=== PATIENT | female | born 1950 | race Caucasian/White ===

== ENCOUNTER 2018-03-21 22:00 | Inpatient (IN) ==
--- NOTE | 2018-03-21 22:12 | Emergency Department Note ---
Disposition Clinical Impression: Hypotension Qualifiers: Hypotension type: unspecified hypotension type Qualified Code(s): I95.9 - Hypotension, unspecified Disposition: Admitted As Inpatient Condition: Fair Forms: ED Satisfaction Letter, Work/School Release Time of Disposition: 02:50 General Adult HPI - General Chief complaint: ED General Medical Stated complaint: unresponsive low BP Time Seen by Provider: 03/21/18 22:06 Source: EMS Mode of arrival: EMS Limitations: altered mental status, other (Dementia) - History of Present Illness HPI Narrative: This is a 67-year-old female from a local intermediate brought to the emergency department by EMS because of decreased interaction and a concern for low blood pressures. - Related Data Allergies Allergy/AdvReac Type Severity Reaction Status Date / Time Penicillins Allergy See Verified 03/21/18 22:12 Comments Limitations: ROS unobtainable due to patients medical condition (Dementia) Past Medical History - Past Medical History Medical history: Reports: dementia Physical Exam - General Limitations: other (Dementia) General appearance: alert, in distress (In mild distress) - Head Head exam: atraumatic, normocephalic, normal inspection - Eye Eye exam: Present: normal appearance, PERRL, EOMI - Chest Chest inspection: Present: normal inspection, symmetric chest wall rise - Respiratory Respiratory exam: Present: normal lung sounds bilaterally. Absent: respiratory distress - Cardiovascular Cardiovascular exam: Present: normal rhythm, tachycardia, normal heart sounds - Abdominal Exam Abdominal exam: Present: soft, Non-Tender. Absent: tenderness, distention, guarding, rebound, rigidity - Extremities Exam Extremities exam: Present: normal inspection, pedal edema (Nonpitting bilateral pedal edema). Absent: tenderness - Neurological Exam Neurological exam: Present: alert - Skin Skin exam: Present: warm, dry, pallor Course Course Narrative: This is a chronically ill-appearing 67-year-old female most likely has an infectious cause of her altered mental status. Vital Signs Temperature 99.3 F 03/21/18 22:13 Pulse Rate 104 03/21/18 22:13 Respiratory Rate 18 03/21/18 22:13 Blood Pressure 99/48 03/21/18 22:13 O2 Sat by Pulse Oximetry 93 03/21/18 22:13 Temperature 99.3 F 03/21/18 22:13 Pulse Rate 100 03/22/18 01:08 Respiratory Rate 14 03/22/18 01:08 Blood Pressure 94/48 03/22/18 01:08 O2 Sat by Pulse Oximetry 100 03/22/18 01:08 Oxygen Delivery Oxygen Delivery Nasal Cannula Procedures - Central Line Placement Right IJ Central Line Catheter Replacement*: No Central Line Insertion: emergent Consent Obtained: verbal consent Procedural Pause: verify patient name and date of , assemble equipment and verify supplies, perform hand hygiene Patient Placed on Monitor/Pulse Ox: Yes During the Procedure: clinician is wearing sterile gloves, cap, mask,& gown during insertion, sterile field and sterile technique are maintained, patient's face is covered with drape or mask and wearing a cap, everyone in room is wearing a mask Central Line Prep: Chlorhexidine scrub Prep the Procedure Site: apply chloraprep to the skin using a back and forth scrubbing motion, apply chloraprep for 30 seconds (upper body), 1-2 min (femoral sites), drape the patient with a full body drape Local Anesthetic: lidocaine 1% Amount of anesthesia used (mL): 3 Ultrasound Used for Placement: Yes Central Line Lumen Inserted: triple Post Procedure: sutured in place, good blood return, all ports aspirated, flushed, capped, sterile dressing applied, guide wire removed and visualized Post Procedure X-Ray: tip of catheter in good position Patient Tolerated Procedure: well, no complications Complications: none Name of Clinician Inserting Central Line: R Day Clinician Assisting/Completing Checklist: XENIA Sanabria Medical Decision Making - [facility] Narrative Medical decision making narrative: This is a 67-year-old female with hypotension of unknown cause. A right internal jugular central venous catheter was placed, and she was started on norepinephrine because her blood pressure only transiently responded to IV fluid. I discussed her case with the on-call hospitalist, who accepted her for admission to the ICU. - Lab Data Lab results reviewed: Yes I reviewed the patient's lab results. Lab results narrative: CBC showed no leukocytosis, no anemia, MCV was elevated at 110.2, thrombocytopenia at 110, low percent lymphocytes BMP showed be human elevated at 40 and creatinine elevated at 1.47 Lactate was normal at 1.7 Troponin was slightly elevated at 0.05 UA was unremarkable Result diagrams: 03/21/18 22:06 03/21/18 22:06 Lab Results 03/21/18 03/21/18 03/21/18 Range/Units 22:06 22:06 22:17 WBC 9.6 (4.3-11.1) K/mcL RBC 3.42 L (3.82-4.97) M/mcL Hgb 12.0 (11.5-15.4) g/dL Hct 37.7 (35.3-44.9) % MCV 110.2 H (83.0-100.0) fL MCH 35.1 H (28.0-33.3) pg MCHC 31.8 (31.6-35.5) g/dL RDW 15.9 H (11.5-14.5) % Plt Count 110 L (140-400) K/mcL MPV 12.0 (9.4-12.4) fL Immature Gran % 1.7 (0-4) % Seg Neutrophils % 87.1 % Lymphocytes % 5.1 % Monocytes % 5.8 % Eosinophils % 0.0 % Basophils % 0.3 % Neutrophils # 8.4 (1.6-8.9) K/mcL Lymphocytes # 0.5 L (0.6-4.6) K/mcL Monocytes # 0.6 (0.0-1.3) K/mcL Eosinophils # 0.0 (0.0-0.6) K/mcL Basophils # 0.0 (0.0-0.2) K/mcL Sodium 141 (136-145) mEq/L Potassium 3.6 (3.5-5.1) mEq/L Chloride 109 H (98-107) mEq/L Carbon Dioxide 23 (23-29) mEq/L BUN 40 H (8-23) mg/dL Creatinine 1.47 H (0.60-1.20) mg/dL Est GFR ( Amer) 43 L (> 60) Est GFR (Non-Af Amer) 35 L (> 60) BUN/Creatinine Ratio 27 H (6-26) Glucose 109 H (70-105) mg/dL Calculated Osmolality 302 H (280-300) Lactic Acid (0.5-2.2) mmol/L Calcium 7.3 L (8.6-10.3) mg/dL Phosphorus 2.5 L (2.7-4.5) mg/dL Magnesium 1.5 L (1.6-2.6) mg/dL Total Bilirubin 0.6 (0.3-1.0) mg/dL Direct Bilirubin 0.2 (0.0-0.2) mg/dL Indirect Bilirubin 0.4 (0.0-1.2) mg/dL AST 14 (13-39) Units/L ALT 13 (7-52) Units/L Alkaline Phosphatase 62 (34-104) Units/L Troponin I 0.05 H* (< 0.04) ng/mL Serum Total Protein 4.0 L (6.4-8.9) g/dL Albumin 2.2 L (3.5-5.7) g/dL Globulin 1.8 L (2.4-3.5) g/dL Albumin/Globulin Ratio 1.2 (1.1-2.2) Urine Color Dark Yellow (Yellow) Urine Clarity Clear (Clear) Urine pH 5.0 (5.0-8.0) pH Units Ur Specific [place] 1.021 (1.010-1.025) Urine Protein Trace (Neg-Trace) mg/dL Urine Glucose (UA) Normal (Normal) mg/dL Urine Ketones Trace H (Negative) mg/dL Urine Blood Negative (Negative) Urine Nitrite Negative (Negative) Urine Bilirubin Large H (Negative) Urine Urobilinogen Normal (Normal) mg/dL Ur Leukocyte Esterase Negative (Negative) Urine Microscopic RBC 0-3 (0-3) per hpf Urine Microscopic WBC 0-3 (0-3) per hpf Ur Squamous Epith Cells Many H (None-Few) per lpf Urine Bacteria Few (None-Few) per hpf Hyaline Casts Few (None-Few) per lpf Urine Mucus Few (Few) Ur Culture Indicated? NO (NO) 03/21/18 Range/Units 22:31 WBC (4.3-11.1) K/mcL RBC (3.82-4.97) M/mcL Hgb (11.5-15.4) g/dL Hct (35.3-44.9) % MCV (83.0-100.0) fL MCH (28.0-33.3) pg MCHC (31.6-35.5) g/dL RDW (11.5-14.5) % Plt Count (140-400) K/mcL MPV (9.4-12.4) fL Immature Gran % (0-4) % Seg Neutrophils % % Lymphocytes % % Monocytes % % Eosinophils % % Basophils % % Neutrophils # (1.6-8.9) K/mcL Lymphocytes # (0.6-4.6) K/mcL Monocytes # (0.0-1.3) K/mcL Eosinophils # (0.0-0.6) K/mcL Basophils # (0.0-0.2) K/mcL Sodium (136-145) mEq/L Potassium (3.5-5.1) mEq/L Chloride (98-107) mEq/L Carbon Dioxide (23-29) mEq/L BUN (8-23) mg/dL Creatinine (0.60-1.20) mg/dL Est GFR ( Amer) (> 60) Est GFR (Non-Af Amer) (> 60) BUN/Creatinine Ratio (6-26) Glucose (70-105) mg/dL Calculated Osmolality (280-300) Lactic Acid 1.7 (0.5-2.2) mmol/L Calcium (8.6-10.3) mg/dL Phosphorus (2.7-4.5) mg/dL Magnesium (1.6-2.6) mg/dL Total Bilirubin (0.3-1.0) mg/dL Direct Bilirubin (0.0-0.2) mg/dL Indirect Bilirubin (0.0-1.2) mg/dL AST (13-39) Units/L ALT (7-52) Units/L Alkaline Phosphatase (34-104) Units/L Troponin I (< 0.04) ng/mL Serum Total Protein (6.4-8.9) g/dL Albumin (3.5-5.7) g/dL Globulin (2.4-3.5) g/dL Albumin/Globulin Ratio (1.1-2.2) Urine Color (Yellow) Urine Clarity (Clear) Urine pH (5.0-8.0) pH Units Ur Specific [place] (1.010-1.025) Urine Protein (Neg-Trace) mg/dL Urine Glucose (UA) (Normal) mg/dL Urine Ketones (Negative) mg/dL Urine Blood (Negative) Urine Nitrite (Negative) Urine Bilirubin (Negative) Urine Urobilinogen (Normal) mg/dL Ur Leukocyte Esterase (Negative) Urine Microscopic RBC (0-3) per hpf Urine Microscopic WBC (0-3) per hpf Ur Squamous Epith Cells (None-Few) per lpf Urine Bacteria (None-Few) per hpf Hyaline Casts (None-Few) per lpf Urine Mucus (Few) Ur Culture Indicated? (NO) - Radiology Data Radiology results reviewed: Yes I reviewed the patient's radiology results. Chest x-ray initially showed no acute process Chest x-ray after insertion of the right internal jugular line showed the CVC ending in the superior vena cava - EKG Data EKG #1 EKG attestation: Yes I reviewed and interpreted this EKG. EKG results narrative: ECG shows sinus tachycardia, 110 bpm, normal intervals, normal axis, ST depressions in lead 2 was seen on her prior from 2011, T-wave inversions in 1 and aVL appear new since 2012 CT brain showed no hemorrhage but atrophy Critical Care Time Critical Care Time: Yes Total Critical Care Time: 40 Attestation: 40 minutes of critical care time was invested independent of separately billable procedures
[2018-03-21 22:30] LABS: Bilirubin,Urine Large (Negative); Blood,Urine Negative (Negative); Clarity,Urine Clear (Clear); Color,Urine Dark Yellow (Yellow); Glucose,Urine (UA) Normal (Normal); Ketones,Urine Trace mg/dL (Negative); Leukocyte Esterase,Urine Negative (Negative); Nitrite,Urine Negative (Negative); Protein,Urine Trace mg/dL (Neg-Trace); Specific Gravity,Urine 1.021 (1.010-1.025); Urobilinogen,Urine Normal (Normal)
[2018-03-21 22:32] LABS: Squamous Epithelial Cell,Urine Many per lpf (None-Few); WBC,Urine 0-3 per hpf (0-3)
[2018-03-21] MEDS: 0.9 % Sodium Chloride 1,000 ML IVC SCH ×2 (22:41→23:21)
[2018-03-21 22:47] LABS: Basophils % 0.3 %; Hematocrit 37.7 % (35.3-44.9); Immature Granulocytes % 1.7 % (0-4); Lymphocytes # 0.5 K/mcL (0.6-4.6); Lymphocytes % 5.1 %; Mean Corpuscular HGB Conc 31.8 g/dL (31.6-35.5); Mean Corpuscular Hemoglobin 35.1 pg (28.0-33.3); Mean Corpuscular Volume 110.2 fL (83.0-100.0); Monocytes # 0.6 K/mcL (0.0-1.3); Monocytes % 5.8 %; Neutrophils # 8.4 K/mcL (1.6-8.9); Platelet Count 110 K/mcL (140-400); Red Blood Count 3.42 M/mcL (3.82-4.97); Red Cell Distribution Width 15.9 % (11.5-14.5); Segmented Neutrophils % 87.1 %
[2018-03-21 22:50] LABS: Bacteria,Urine Few per hpf (None-Few); Hyaline Casts,Urine Few per lpf (None-Few); RBC,Urine 0-3 per hpf (0-3)
[2018-03-21 22:52] LABS: Mucus,Urine Few (Few)
[2018-03-21 23:10] LABS: Albumin 2.2 g/dL (3.5-5.7); Albumin/Globulin Ratio 1.2 (1.1-2.2); Bilirubin,Direct 0.2 mg/dL (0.0-0.2); Bilirubin,Indirect 0.4 mg/dL (0.0-1.2); Bilirubin,Total 0.6 mg/dL (0.3-1.0); Calcium 7.3 mg/dL (8.6-10.3); Globulin 1.8 g/dL (2.4-3.5); Magnesium 1.5 mg/dL (1.6-2.6); Phosphorous 2.5 mg/dL (2.7-4.5); Potassium 3.6 mEq/L (3.5-5.1)
[2018-03-21 23:14] LABS: Troponin I 0.05 ng/mL (< 0.04)
[2018-03-22] MEDS: Norepinephrine 4 MG in D5% in Water 250 ML IVC SCH ×3 (02:25→16:59)
[2018-03-22] MEDS ORDERED: Potassium Phosphate 44 MEQ in 0.9 % Sodium Chloride 250 ML IVPB ONE (04:05)
[2018-03-22] MEDS ORDERED: Naloxone 0.4 MG/ML INJ IVP PRN (04:09)
[2018-03-22] MEDS: Nystatin OINT 15 GM TUBE TP SCH ×5 (04:19→20:31)
--- NOTE | 2018-03-22 04:23 | Internal Med History&Physical ---
<LaneyCecycassi - Last Filed: 03/22/18 05:40> Date of Encounter: 03/22/18 Time of Encounter: 04:22 Internal Medicine - H&P: HPI Chief complaint: hypotension Admitted From: Emergency Dept Plans for Post Hospital Care: [facility] History of present illness: Ms. Whitten is a 67 year old female with past medical history of hyperlipidemia, depression, anxiety, GERD, hypertension, osteoarthritis, dementia, panic disorder, schizophrenia. Patient lives in [facility] and was brought to the emergency room department by EMS due to concerns for hypotension, decreased interaction. History is limited, as patient has baseline dementia, does not answer many questions, and patient had no family at bedside. There was also no paperwork [facility] with [facility]. Upon arrival to the emergency department, patient was tachycardic and hypotensive with blood pressures running as low as 70/46. She received 500 ML bolus by squad, and an additional 2 L bolus in the emergency department yet still remained hypotensive. Patient had right IJ placed urgently in emergency department, and was started on levophed. Upon review of her labs, patient had normal WBC, normal lactic acid. She had mild troponin leak of 0.05. Chest x-ray and head CT were unremarkable, and there is no known source of infection. Review of systems was unattainable due to patient's mental status. Past Med Surg Social Fam HX - Past Medical History Medical history: dementia Psychiatric history: anxiety, panic disorder, schizophrenia, other - Social History Smoking Status: Unknown if ever smoked Internal Medicine - H&P: Meds Allergy/AdvReac Type Severity Reaction Status Date / Time Penicillins Allergy See Verified 03/21/18 22:12 Comments ROS unobtainable: due to mental status - Constitutional Vitals: Temp Pulse Resp BP Pulse Ox 98.9 F 111 12 90/49 100 03/22/18 04:00 03/22/18 04:00 03/22/18 04:00 03/22/18 04:00 03/22/18 04:00 General appearance: Present: A&O X 1, no acute distress Exam: Patient laying up in bed, alert and oriented to place only, appears to be in no acute distress. She appears very disheveled. Response to minimal questions, and does not follow commands. - Head Head exam: Present: atraumatic, normocephalic - Eye Eye exam: Present: normal appearance, PERRL, sclera anicteric. Absent: conjunctival injection, nystagmus, periorbital swelling Pupils: Present: PERRL - Neck Neck exam general surgery: Present: supple, trachea midline - Respiratory Respiratory exam: Present: decreased breath sounds. Absent: accessory muscle use, chest wall tenderness, respiratory distress, stridor, wheezes, tachypnea - Cardiovascular Cardiovascular exam: Present: +S1, +S2, tachycardia. Absent: diastolic murmur, gallop, systolic murmur - GI/Abdominal GI/Abdominal exam: Present: normal bowel sounds, soft. Absent: distended, tenderness - Extremities Exam Extremities exam: Present: pedal edema (+1 bilateral lower extremity pitting edema. ). Absent: cyanotic - Neurological Exam Neurological exam: Present: alert. Absent: facial droop, speech deficit Additional comments: alert and oriented to place only. Follows minimal commands. Does not answer many questions. - Skin Skin exam: Present: dry. Absent: cyanosis Internal Med - H&P Results - Labs CBC & Chem 7: 03/21/18 22:06 03/21/18 22:06 Labs: Short CBC 03/21/18 Range/Units 22:06 WBC 9.6 (4.3-11.1) K/mcL Hgb 12.0 (11.5-15.4) g/dL Hct 37.7 (35.3-44.9) % Plt Count 110 L (140-400) K/mcL Neutrophils # 8.4 (1.6-8.9) K/mcL BMP 03/21/18 22:06 Sodium 141 Potassium 3.6 Chloride 109 H Carbon Dioxide 23 BUN 40 H Creatinine 1.47 H Glucose 109 H Calcium 7.3 L Cardiac Enzymes 03/21/18 Range/Units 22:06 Troponin I 0.05 H* (< 0.04) ng/mL Liver Function 03/21/18 Range/Units 22:06 Total Bilirubin 0.6 (0.3-1.0) mg/dL Direct Bilirubin 0.2 (0.0-0.2) mg/dL AST 14 (13-39) Units/L ALT 13 (7-52) Units/L Alkaline Phosphatase 62 (34-104) Units/L Albumin 2.2 L (3.5-5.7) g/dL Urine 03/21/18 Range/Units 22:17 Urine Color Dark Yellow (Yellow) Urine Clarity Clear (Clear) Urine pH 5.0 (5.0-8.0) pH Units Ur Specific [place] 1.021 (1.010-1.025) Urine Protein Trace (Neg-Trace) mg/dL Urine Glucose (UA) Normal (Normal) mg/dL - Impressions ITS Impressions Chest X-Ray 03/21/18 22:07 IMPRESSION: No acute cardiopulmonary disease. D/ / Erick Murphy MD / Erick Murphy MD Interpreting Provider: Erick Murphy MD Chest X-Ray 03/22/18 01:09 IMPRESSION: Interval placement of right internal jugular central venous catheter which appears to be in expected position. No obvious immediate postprocedure complication D/ / Gopal Rosen MD / Gopal Rosen MD Interpreting Provider: Gopal Rosen MD Head CT 03/22/18 01:38 IMPRESSION: No acute intracranial abnormality. Moderate chronic microangiopathic ischemic changes of cerebral white matter. Moderate to large right mastoid effusion, similar prior examination. Sequela of chronic maxillary sinusitis. D/ / Hussein Oglesby / Hussein Oglesby Interpreting Provider: Hussein Oglesby - Assessment and plan (1) Hypotension Current Visit: Yes Status: Acute Assessment and plan: 67-year-old female [facility] due to concerns for hypotension and decreased alertness. After arrival to the emergency department, patient met once sirs criteria with tachycardia. Head CT unremarkable, chest x-ray showed no focal consolidation. UA was contaminated with many squamous epithelial cells, no bacteria or leukocyte esterase present. Patient received one 500 mL bolus by EMS and 2 L bolus and emergency department yet still remained hypotensive. Thus, she was started on Levophed. Do not suspect sepsis at this time, as there is no clear source of infection. Etiology of hypotension unclear, consider possible adrenal insufficiency or cardiac ischemia in setting of elevated troponins. patient's records from [facility] does not reveal any recent steroid use. Plan: titrate Levophed to maintain MAP>65 6am cortisol pending blood cultures x2 pending consider stress dose steroids and Cosytropin stimulation test. EV echocardiogram trend troponins q6H Qualifiers: Hypotension type: unspecified hypotension type Qualified Code(s): I95.9 - Hypotension, unspecified (2) Elevated troponin Current Visit: Yes Status: Acute Assessment and plan: Initial troponin in emergency department 0.05. EKG showed sinus tachycardia with inverted T waves in leads I, AVL. Patient denies any chest pain Plan: trend troponins Q6H EV echocardiogram pending (3) Hypothyroidism Current Visit: Yes Status: Acute Assessment and plan: continue with IV synthroid, as patient is NPO Qualifiers: Hypothyroidism type: unspecified Qualified Code(s): E03.9 - Hypothyroidism, unspecified (4) Anxiety Current Visit: Yes Status: Acute (5) Depression Current Visit: Yes Status: Acute Qualifiers: Depression Type: unspecified Qualified Code(s): F32.9 - Major depressive disorder, single episode, unspecified (6) Dementia Current Visit: Yes Status: Acute Qualifiers: Dementia type: unspecified type Dementia behavioral disturbance: with behavioral disturbance Qualified Code(s): F03.91 - Unspecified dementia with behavioral disturbance (7) Schizoaffective disorder Current Visit: Yes Status: Acute Qualifiers: Schizoaffective disorder type: unspecified Qualified Code(s): F25.9 - Schizoaffective disorder, unspecified (8) DVT prophylaxis Current Visit: Yes Status: Acute Assessment and plan: Heparin SQ - Time Spent With Patient Total time spent is greater than 50% in coordination of care (as documented) at patient's floor/unit and/or counseling patient: <Branden Pandya A - Last Filed: 03/22/18 06:27> Date of Encounter: 03/22/18 Internal Medicine - H&P: HPI History of present illness: Ms. Whitten is a 67 year old female All Systems PM: A 10-system review of systems was performed and is negative for pertinent findings except as documented above in the HPI. - Constitutional Vitals: Temp Pulse Resp BP Pulse Ox 98.9 F 90 12 89/48 100 03/22/18 04:00 03/22/18 06:00 03/22/18 06:00 03/22/18 06:00 03/22/18 06:00 Internal Med - H&P Results - Labs CBC & Chem 7: 03/21/18 22:06 03/21/18 22:06 Labs: Short CBC 03/21/18 Range/Units 22:06 WBC 9.6 (4.3-11.1) K/mcL Hgb 12.0 (11.5-15.4) g/dL Hct 37.7 (35.3-44.9) % Plt Count 110 L (140-400) K/mcL Neutrophils # 8.4 (1.6-8.9) K/mcL BMP 03/21/18 22:06 Sodium 141 Potassium 3.6 Chloride 109 H Carbon Dioxide 23 BUN 40 H Creatinine 1.47 H Glucose 109 H Calcium 7.3 L Cardiac Enzymes 03/21/18 03/22/18 Range/Units 22:06 05:22 Troponin I 0.05 H* 0.17 H* (< 0.04) ng/mL Liver Function 03/21/18 Range/Units 22:06 Total Bilirubin 0.6 (0.3-1.0) mg/dL Direct Bilirubin 0.2 (0.0-0.2) mg/dL AST 14 (13-39) Units/L ALT 13 (7-52) Units/L Alkaline Phosphatase 62 (34-104) Units/L Albumin 2.2 L (3.5-5.7) g/dL Urine 03/21/18 Range/Units 22:17 Urine Color Dark Yellow (Yellow) Urine Clarity Clear (Clear) Urine pH 5.0 (5.0-8.0) pH Units Ur Specific [place] 1.021 (1.010-1.025) Urine Protein Trace (Neg-Trace) mg/dL Urine Glucose (UA) Normal (Normal) mg/dL - Impressions ITS Impressions Chest X-Ray 03/21/18 22:07 IMPRESSION: No acute cardiopulmonary disease. D/ / Erick Murphy MD / Erick Murphy MD Interpreting Provider: Erick Murphy MD Chest X-Ray 03/22/18 01:09 IMPRESSION: Interval placement of right internal jugular central venous catheter which appears to be in expected position. No obvious immediate postprocedure complication D/ / Gopal Rosen MD / Gopal Rosen MD Interpreting Provider: Gopal Rosen MD Head CT 03/22/18 01:38 IMPRESSION: No acute intracranial abnormality. Moderate chronic microangiopathic ischemic changes of cerebral white matter. Moderate to large right mastoid effusion, similar prior examination. Sequela of chronic maxillary sinusitis. D/ / Hussein Oglesby / Hussein Oglesby Interpreting Provider: Hussein Oglesby - Time Spent With Patient Total time spent is greater than 50% in coordination of care (as documented) at patient's floor/unit and/or counseling patient: - Attending Attestation I performed a history and physical examination of the patient and discussed her management with the resident. I reviewed the resident's note and agree with the documented findings and plan of care. Admitted to the ICU for fluid responsive hypotension of unclear etiology. Patient remains on pressor support with mild tachycardia. I set suspect patient may still need fluids. We will attempt careful fluid challenge and assess response. Follow-up a.m. cortisol level. Follow-up troponin showed a increase from 0.05-0.17. This may be secondary to demand ischemia in the setting of hypotension though concern for a cardiac event still remains high in the differential given the patient's EKG findings of inverted T waves in leads 1 to and aVL. We will continue to trend troponin. We will start patient on heparin drip and obtain cardiology consult for the morning. At least 30 minutes of critical care time was spent in the management of this patient.
[2018-03-22] MEDS ORDERED: 0.9 % Sodium Chloride 500 ML IVC ONE ×2 (05:13→06:18)
[2018-03-22] MEDS: Levothyroxine Sodium 100 MCG VIAL IVP SCH (05:51)
[2018-03-22] MEDS ORDERED: *HR* Heparin 5,000 UNIT/ML VIAL SQ SCH (06:00)
[2018-03-22] MEDS ORDERED: *HR* Heparin 5,000 UNIT/ML VIAL IVP ONE (06:19)
[2018-03-22] MEDS ORDERED: *HR* Heparin 5,000 UNIT/ML VIAL IVP PRN ×2 (06:19)
[2018-03-22 07:22] LABS: Heparin anti-factor XA UFH 0.03 IU/mL (0.30-0.70); INR 1.1; Prothrombin Time 12.6 Seconds (9.4-12.1)
[2018-03-22 07:24] LABS: Activated Partial Thrombo Time 25.3 Seconds (26.0-36.0)
[2018-03-22] MEDS: 0.9 % Sodium Chloride 1,000 ML IVC SCH (07:35)
[2018-03-22 07:59] LABS: ABG Base Excess -11 mEq/L (-2 to 3); ABG HCO3 16 mEq/L (21-27); ABG Oxygen Saturation 98 % (95-98); ABG PCO2 40 mmHg (35-45); ABG PH 7.22 pH Units (7.32-7.45); ABG PO2 134 mmHg (85-104); ABG TCO2 18 mEq/L (20-26)
[2018-03-22] MEDS ORDERED: Aztreonam 2,000 MG in Water for inj. (sterile) 20 ML 20 ML IVP SCH (08:00)
[2018-03-22] MEDS: Heparin 25,000 UNIT/500 ML D5W 25,000 UNIT/500 ML BAG IVC SCH (08:11)
--- NOTE | 2018-03-22 08:11 | Pulmonology Consult Note ---
<CoreyheydijakePedro S - Last Filed: 03/22/18 11:00> Date of Encounter: 03/22/18 Medications and Allergies Acetaminophen [Tylenol Arthritis] 650 mg PO Q6H PRN 03/22/18 [History] Acetaminophen [Tylenol] 650 mg PO BID PRN 03/22/18 [History] Docusate [Colace] 100 mg PO DAILY PRN 03/22/18 [History] LORazepam [Ativan] 0.5 mg PO BID PRN 03/22/18 [History] Levothyroxine [Synthroid] 88 mcg PO 0630 03/22/18 [History] Pyrithione Zinc [Selsun Blue] 1 appl TP TUFR PRN 03/22/18 [History] Sertraline [Zoloft] 50 mg PO DAILY 03/22/18 [History] Zolpidem [Ambien] 5 mg PO HS PRN 03/22/18 [History] risperiDONE [Risperdal] 2 mg PO HS 03/22/18 [History] Allergy/AdvReac Type Severity Reaction Status Date / Time Penicillins Allergy See Verified 03/22/18 07:40 Comments All Systems: The remainder of the systems were reviewed and are negative Physical Examination Vital Signs: Vital Signs, Last 4 Hours Temp Pulse Resp BP Pulse Ox 03/22/18 09:00 96 15 104/56 99 03/22/18 08:00 97.9 F 95 12 102/62 99 03/22/18 07:00 92 10 81/37 100 03/22/18 06:00 90 12 89/48 100 Results - Laboratory Findings CBC and BMP: 03/22/18 09:40 03/21/18 22:06 ABG ABG pH 7.22 pH Units (7.32-7.45) L 03/22/18 07:42 ABG pCO2 40 mmHg (35-45) 03/22/18 07:42 ABG pO2 134 mmHg (85-104) H 03/22/18 07:42 ABG O2 Saturation 98 % (95-98) 03/22/18 07:42 PT/INR, D-dimer PT 12.6 Seconds (9.4-12.1) H 03/22/18 06:55 Abnormal lab findings: Abnormal lab results RBC 3.42 M/mcL (3.82-4.97) L 03/21/18 22:06 MCV 110.2 fL (83.0-100.0) H 03/21/18 22:06 MCH 35.1 pg (28.0-33.3) H 03/21/18 22:06 RDW 15.9 % (11.5-14.5) H 03/21/18 22:06 Plt Count 110 K/mcL (140-400) L 03/21/18 22:06 Lymphocytes # 0.5 K/mcL (0.6-4.6) L 03/21/18 22:06 PT 12.6 Seconds (9.4-12.1) H 03/22/18 06:55 APTT 25.3 Seconds (26.0-36.0) L 03/22/18 06:55 Heparin Anti-Xa, Unfract 0.03 IU/mL (0.30-0.70) L 03/22/18 06:55 ABG pH 7.22 pH Units (7.32-7.45) L 03/22/18 07:42 ABG pO2 134 mmHg (85-104) H 03/22/18 07:42 ABG HCO3 16 mEq/L (21-27) L 03/22/18 07:42 ABG Total CO2 18 mEq/L (20-26) L 03/22/18 07:42 ABG Base Excess -11 mEq/L (-2 to 3) L 03/22/18 07:42 Chloride 109 mEq/L (98-107) H 03/21/18 22:06 BUN 40 mg/dL (8-23) H 03/21/18 22:06 Creatinine 1.47 mg/dL (0.60-1.20) H 03/21/18 22:06 Est GFR ( Amer) 43 (> 60) L 03/21/18 22:06 Est GFR (Non-Af Amer) 35 (> 60) L 03/21/18 22:06 BUN/Creatinine Ratio 27 (6-26) H 03/21/18 22:06 Glucose 109 mg/dL (70-105) H 03/21/18 22:06 Calculated Osmolality 302 (280-300) H 03/21/18 22:06 Calcium 7.3 mg/dL (8.6-10.3) L 03/21/18 22:06 Phosphorus 2.5 mg/dL (2.7-4.5) L 03/21/18 22:06 Magnesium 1.5 mg/dL (1.6-2.6) L 03/21/18 22:06 Troponin I 0.19 ng/mL (< 0.04) H* 03/22/18 08:05 Serum Total Protein 4.0 g/dL (6.4-8.9) L 03/21/18 22:06 Albumin 2.2 g/dL (3.5-5.7) L 03/21/18 22:06 Globulin 1.8 g/dL (2.4-3.5) L 03/21/18 22:06 TSH 0.169 mcIU/mL (0.340-5.600) L 03/22/18 08:05 Free T3 2.00 pg/mL (2.50-3.90) L 03/22/18 08:05 Urine Ketones Trace mg/dL (Negative) H 03/21/18 22:17 Urine Bilirubin Large (Negative) H 03/21/18 22:17 Ur Squamous Epith Cells Many per lpf (None-Few) H 03/21/18 22:17 - Microbiology Findings Microbiology Findings: Microbiology, Last 48 Hours 03/21/18 22:25 Blood Culture - Preliminary Peripheral Venipuncture Culture is incubating and being continuously monitored for growth. Final report to follow. 03/21/18 22:31 Blood Culture - Preliminary Peripheral Venipuncture Culture is incubating and being continuously monitored for growth. Final report to follow. - Clinical Findings Intake & Output: Intake & Output 03/21/18 03/22/18 03/22/18 23:59 07:59 15:59 Intake Total 1000 / 1000 1783.0 / 1783.0 175 / 175 Output Total 90 / 90 0 / 0 Balance 1000 / 1000 1693.0 / 1693.0 175 / 175 Weight 70.851 kg 68.3 kg Consult Discharge Plan - Plan Referrals: NONE,PCP [Primary Care Provider] - - Attending Attestation I saw and evaluated this patient and my medical decision-making was reviewed with the Resident Physician. I agree with the documented findings, disposition and treatment plan as described except to the extent set forth below. We independently had [id number] contact with the patient I spent 40 minutes of Critical Care time with this patient. It involved decision making of high complexity to assess, manipulate, and support vital organ system failure and/or to prevent further life threatening deterioration of the patient's condition. The time involved in the performance of separately reportable procedures was not counted toward critical care time. Patient seen and examined at bedside Labs, radiology, chart personally reviewed. Management was reviewed during multidisciplinary critical care rounds. 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 Cards: Patient is in shock most likely sepsis versus cardiogenic complicated by some volume depletion to keep the vasopressors and the map around 65 will wait for transthoracic echocardiogram will trend troponins we will look for other sources of sepsis. FEN-GI: We will keep her nothing by mouth to do CT abdomen and pelvis to look for any source of sepsis. Renal: Patient has poor urine output ATN versus prerenal versus resuscitate and tender serum creatinine ID: To look for other source for sepsis due to CT sinuses and CT abdomen and pelvis without any [employer] INSPECTOR infection to continue broad-spectrum antibiotics to follow cultures. Heme/Onc: Thromboprophylaxis. Endo: Glucose Monitored Integ/MSK: Skin Care per routine ICU Nursing Protocol to prevent ulcers. Lines: All lines examined without evidence of infection : Dispo: Critically ill CODE:Full Code <Elio Ratliff - Last Filed: 03/22/18 11:20> Date of Encounter: 03/22/18 Time of Encounter: 08:10 Assessment and Plan (1) Hypotension Current Visit: Yes Status: Acute Admitted from skilled nursing due to concerns for hypotension and decreased alertness BP on admission 99/48 Afebrile, tachycardic with HR 104 on admission, WBC 9.6, RR normal Head CT negative for acute abnormality. Moderate to large right mastoid effusion, suggestive of chronic sinusitis CXR revealed no acute abnormalities UA was contaminated with many squamous epithelial cells. No bacteria or leukocyte esterase present. Patient received one 500 mL bolus by EMS and 2 L bolus and emergency department yet still remained hypotensive. Was started on Levophed. Do not suspect sepsis at this time, as there is no clear source of infection. Random cortisol 33.9, no concern for adrenal insufficiency Serial troponins mildly elevated - cardio is on board. EKG in ED showed sinus tachycardia with inverted T waves in leads 1 and AVL BP improved greatly with trial of albumin - may be related to dehydration/hypovolemia Continue to titrate Levophed to maintain MAP>65 blood cultures x2 pending Echo ordered If Echo is normal, will obtain CT of abdomen/pelvis and sinuses Qualifiers: Hypotension type: unspecified hypotension type Qualified Code(s): I95.9 - Hypotension, unspecified (2) Elevated troponin Current Visit: Yes Status: Acute Initial troponin in emergency department 0.05 -> 0.17 -> 0.19 EKG showed sinus tachycardia with inverted T waves in leads I, AVL Pt continues to deny any chest pain, shortness of breath, or diaphoresis Cardio is on board - appreciate recs echocardiogram ordered (3) Schizoaffective disorder Current Visit: Yes Status: Chronic chronic issue Qualifiers: Schizoaffective disorder type: unspecified Qualified Code(s): F25.9 - Schizoaffective disorder, unspecified (4) Hypothyroidism Current Visit: Yes Status: Chronic Continue home dose synthroid Will check TSH, T4, and T3 to confirm appropriate dosing Qualifiers: Hypothyroidism type: unspecified Qualified Code(s): E03.9 - Hypothyroidism, unspecified (5) DVT prophylaxis Current Visit: Yes Status: Acute On Heparin drip at this time with elevated troponins History of Present Illness Consult date: 03/22/18 Chief complaint: tachycardia and hypotension History of present illness: Ms. Whitten is a 67F with PMH of HLD, depression, anxiety, GERD, HTN, osteoarthritis, dementia, panic disorder, and schizophrenia. Patient lives in [facility] and was brought to the ED by EMS due to concerns for hypotension, and decreased mentation. History is limited, as patient has baseline dementia, does not answer many questions, and patient had no family at bedside. There was also no paperwork sent with her from the skilled nursing. Upon arrival to the ED, patient was tachycardic and hypotensive with blood pressures running as low as 70/46. She received 500 ML bolus by squad, and an additional 2 L bolus in the ED yet still remained hypotensive. Patient had right IJ placed urgently in emergency department, and was started on levophed. Initial troponin at 0.05. EKG from ED showed sinus tach with inverted T waves in leads 1 and AVL. Chest x-ray and head CT from ED were unremarkable. Pt afebrile, with no elevated WBC, and no obvious source of infection. Pt seen and examined at bedside. No acute events since admission. Pt is alert, but is selective about answering questions. Endorses no chest pain, shortness of breath, or other pain. No other complaints at this time. Past Med Surg Social Fam HX - Past Medical History Medical history: dementia Psychiatric history: anxiety, panic disorder, schizophrenia, other - Social History Smoking Status: Unknown if ever smoked ROS unobtainable: due to mental status All Systems: The remainder of the systems were reviewed and are negative Physical Examination Vital Signs: Vital Signs, Last 4 Hours Pulse Resp BP Pulse Ox 03/22/18 07:00 92 10 81/37 100 03/22/18 06:00 90 12 89/48 100 03/22/18 05:00 104 14 90/51 97 General appearance: no acute distress, alert Eyes: nonicteric ENT: oropharynx dry Neck: supple, no lymphadenopathy, no JVD Effort: normal Inspection: normal Auscultation: bilateral: clear Percussion: bilateral: not dull Tactile fremitus: bilateral: normal Cardiovascular: regular rate and rhythm Gastrointestinal: soft, non-tender, non-distended Integumentary: normal Extremities: no cyanosis, no edema, no clubbing, pink and warm, pulses normal Musculoskeletal: no deformities Gait: normal posture unable to assess due to mental status mood appropriate Results - Laboratory Findings CBC and BMP: 03/22/18 09:40 03/21/18 22:06 ABG ABG pH 7.22 pH Units (7.32-7.45) L 03/22/18 07:42 ABG pCO2 40 mmHg (35-45) 03/22/18 07:42 ABG pO2 134 mmHg (85-104) H 03/22/18 07:42 ABG O2 Saturation 98 % (95-98) 03/22/18 07:42 PT/INR, D-dimer PT 12.6 Seconds (9.4-12.1) H 03/22/18 06:55 Abnormal lab findings: Abnormal lab results RBC 3.42 M/mcL (3.82-4.97) L 03/21/18 22:06 MCV 110.2 fL (83.0-100.0) H 03/21/18 22:06 MCH 35.1 pg (28.0-33.3) H 03/21/18 22:06 RDW 15.9 % (11.5-14.5) H 03/21/18 22:06 Plt Count 110 K/mcL (140-400) L 03/21/18 22:06 Lymphocytes # 0.5 K/mcL (0.6-4.6) L 03/21/18 22:06 PT 12.6 Seconds (9.4-12.1) H 03/22/18 06:55 APTT 25.3 Seconds (26.0-36.0) L 03/22/18 06:55 Heparin Anti-Xa, Unfract 0.03 IU/mL (0.30-0.70) L 03/22/18 06:55 ABG pH 7.22 pH Units (7.32-7.45) L 03/22/18 07:42 ABG pO2 134 mmHg (85-104) H 03/22/18 07:42 ABG HCO3 16 mEq/L (21-27) L 03/22/18 07:42 ABG Total CO2 18 mEq/L (20-26) L 03/22/18 07:42 ABG Base Excess -11 mEq/L (-2 to 3) L 03/22/18 07:42 Chloride 109 mEq/L (98-107) H 03/21/18 22:06 BUN 40 mg/dL (8-23) H 03/21/18 22:06 Creatinine 1.47 mg/dL (0.60-1.20) H 03/21/18 22:06 Est GFR ( Amer) 43 (> 60) L 03/21/18 22:06 Est GFR (Non-Af Amer) 35 (> 60) L 03/21/18 22:06 BUN/Creatinine Ratio 27 (6-26) H 03/21/18 22:06 Glucose 109 mg/dL (70-105) H 03/21/18 22:06 Calculated Osmolality 302 (280-300) H 03/21/18 22:06 Calcium 7.3 mg/dL (8.6-10.3) L 03/21/18 22:06 Phosphorus 2.5 mg/dL (2.7-4.5) L 03/21/18 22:06 Magnesium 1.5 mg/dL (1.6-2.6) L 03/21/18 22:06 Troponin I 0.17 ng/mL (< 0.04) H* 03/22/18 05:22 Serum Total Protein 4.0 g/dL (6.4-8.9) L 03/21/18 22:06 Albumin 2.2 g/dL (3.5-5.7) L 03/21/18 22:06 Globulin 1.8 g/dL (2.4-3.5) L 03/21/18 22:06 Urine Ketones Trace mg/dL (Negative) H 03/21/18 22:17 Urine Bilirubin Large (Negative) H 03/21/18 22:17 Ur Squamous Epith Cells Many per lpf (None-Few) H 03/21/18 22:17 - Microbiology Findings Microbiology Findings: Microbiology, Last 48 Hours 03/21/18 22:25 Blood Culture - Preliminary Peripheral Venipuncture Culture is incubating and being continuously monitored for growth. Final report to follow. 03/21/18 22:31 Blood Culture - Preliminary Peripheral Venipuncture Culture is incubating and being continuously monitored for growth. Final report to follow. - Clinical Findings Intake & Output: Intake & Output 03/21/18 03/22/18 03/22/18 23:59 07:59 15:59 Intake Total 1000 / 1000 1783.0 / 1783.0 Output Total 90 / 90 Balance 1000 / 1000 1693.0 / 1693.0 Weight 70.851 kg 68.3 kg
[2018-03-22] MEDS: MetroNIDAZOLE 500 MG/100 ML 500 MG/100 ML BAG IVPB SCH ×3 (08:13→23:52)
[2018-03-22 08:55] LABS: Thyroid Stimulating Hormone 0.169 mcIU/mL (0.340-5.600)
[2018-03-22 10:01] LABS: Hematocrit 34.2 % (35.3-44.9); Mean Corpuscular HGB Conc 32.2 g/dL (31.6-35.5); Mean Corpuscular Hemoglobin 35.7 pg (28.0-33.3); Mean Platelet Volume 11.2 fL (9.4-12.4); Platelet Count 144 K/mcL (140-400); Red Blood Count 3.08 M/mcL (3.82-4.97); Red Cell Distribution Width 16.4 % (11.5-14.5)
--- NOTE | 2018-03-22 10:12 | Cardiology Consult Note ---
Addendum entered and electronically signed by Antony Spring DO 03/22/18 12:30: I have personally performed a face to face evaluation on this patient. I have reviewed and agree with the care plan. History and Exam by me shows: Patient independently seen and examined earlier this morning. Case discussed with ICU. Chronically ill-appearing 67-year-old who was apparently transferred from a [facility] for worsening mentation. Blood pressure has been low, requiring norepinephrine. Etiology unclear - no obvious infectious source reported. Random cortisol 33.9. Mild troponin elevation noted. No obvious chest pain or discomfort. Impressions: 1. Hypotension of unclear etiology. 2. Mild troponin elevation. Presentation is not consistent with ACS. Possibly type II elevation related to hypotension. Recommendations: 1. No immediate indication for aggressive cardiac intervention such as a cardiac catheterization. Recommend ongoing supportive care for now. Check echocardiogram. Mild, nonspecific ST and T wave changes noted on ECG. Continue heparin for now. Hold beta jason given hypotension. If able to take oral medications, start aspirin and statin therapy. Further recommendations to follow. Thanks, Antony Spring DO, [facility] Original Note: Date of Encounter: 03/22/18 Time of Encounter: 10:09 Assessment and Plan (1) Hypotension Current Visit: Yes Status: Acute Received fluid boluses, remained hypotensive. Started on Levophed, currently at 12mcg/min. No clear source of infection. Afebrile, normal WBC. ECG with mild changes compared to previous. Titrate Levophed to maintain MAP>65. Labs reveal elevated AM cortisol level of 33.9. TSH is 0.169, Free T3 2.00. Management per primary team. Mildly elevated troponins--check TTE. Will discuss and review with Dr. Spring. Qualifiers: Hypotension type: unspecified hypotension type Qualified Code(s): I95.9 - Hypotension, unspecified (2) Elevated troponin Current Visit: Yes Status: Acute Troponins 0.5, 0.17, 0.19 in setting of hypotension and BREE. Suspect demand ischemia, nondiagnostic for ACS. Denies chest pain when asked. Currently on heparin gtt. Check TTE to evaluate structure and function. Reported VT on notes when pt was down for CT. There are no VT events on telemetry. Continue tele. Discussion w patient/family: The assessment and plan as outlined above was discussed with the patient and/or family members who expressed understanding and agreement. All questions were answered. Thank you for involving us in the care of your patient. Please call with any questions. I will discuss all the above with Dr. Spring and make changes as necessary. History of Present Illness Consult date: 03/22/18 Consult reason: hypotension, elevated troponin History of present illness: Ms. Whitten is a 67 year old female with PMH of HLD, depression, anxiety, GERD, HTN, OA, dementia, panic disorder, and schizophrenia. Patient lives in [facility] and was brought to the ED by EMS due to concerns for hypotension and decreased mentation. On arrival to the ED, pt was tachycardic and hypotensive, BP 70/46. She received multiple fluid boluses, remained hypotensive. She was started on levophed. Troponins 0.05, 0.17, 0.19. CXR and head CT unremarkable. Pt afebrile, with no elevated WBC, and no obvious source of infection. Cardiology consulted for further recs. Pt has baseline dementia, does not answer many questions, no family at bedside. Past Med Surg Social Fam HX - Past Medical History Medical history: dementia Psychiatric history: anxiety, panic disorder, schizophrenia, other - Social History Smoking Status: Unknown if ever smoked Medications and Allergies Acetaminophen [Tylenol Arthritis] 650 mg PO Q6H PRN 03/22/18 [History] Acetaminophen [Tylenol] 650 mg PO BID PRN 03/22/18 [History] Docusate [Colace] 100 mg PO DAILY PRN 03/22/18 [History] LORazepam [Ativan] 0.5 mg PO BID PRN 03/22/18 [History] Levothyroxine [Synthroid] 88 mcg PO 0630 03/22/18 [History] Pyrithione Zinc [Selsun Blue] 1 appl TP TUFR PRN 03/22/18 [History] Sertraline [Zoloft] 50 mg PO DAILY 03/22/18 [History] Zolpidem [Ambien] 5 mg PO HS PRN 03/22/18 [History] risperiDONE [Risperdal] 2 mg PO HS 03/22/18 [History] Allergy/AdvReac Type Severity Reaction Status Date / Time Penicillins Allergy See Verified 03/22/18 07:40 Comments ROS unobtainable: due to mental status All Systems Review: The remainder of the systems were reviewed and are negative Physical Examination Vital Signs, Last 4 Hours Temp Pulse Resp BP Pulse Ox 03/22/18 09:00 96 15 104/56 99 03/22/18 08:00 97.9 F 95 12 102/62 99 03/22/18 07:00 92 10 81/37 100 Vital Signs Temp Pulse Resp BP Pulse Ox 03/22/18 09:00 96 15 104/56 99 03/22/18 08:00 97.9 F 95 12 102/62 99 03/22/18 07:00 92 10 81/37 100 03/22/18 06:00 90 12 89/48 100 03/22/18 05:00 104 14 90/51 97 03/22/18 04:00 98.9 F 111 12 90/49 100 03/22/18 03:12 90 15 86/42 100 03/22/18 02:40 103 16 89/43 98 03/22/18 01:44 97 12 78/48 100 03/22/18 01:08 100 14 94/48 100 03/22/18 00:50 100 14 97/52 100 03/22/18 00:19 90 13 70/46 100 03/21/18 23:48 93 14 92/55 100 03/21/18 23:21 99 15 94/42 100 03/21/18 22:48 100 15 91/48 100 03/21/18 22:40 92 14 79/40 100 03/21/18 22:13 99.3 F 104 18 99/48 93 Intake and Output 03/21/18 03/22/18 03/22/18 23:59 07:59 15:59 Intake Total 1000 / 1000 1783.0 / 1783.0 175 / 175 Output Total 90 / 90 0 / 0 Balance 1000 / 1000 1693.0 / 1693.0 175 / 175 Intake: IV Fluids 1000 / 1000 1783.0 / 1783.0 175 / 175 0.9 % Sodium Chloride 1,000 ML 1000 / 1000 1000 / 1000 @ 999 mls/hr IVC .Q1H1M [facility] Rx# :[id number] 0.9 % Sodium Chloride 500 ML @ 500 / 500 999 mls/hr IVC .Q31M ONE Rx#: [id number] Levophed 4 MG In Dextrose 5% 79.0 / 79.0 175 / 175 250 ML @ 3 MCG/MIN 11.43 mls/hr IVC CONT [facility] Rx#:[id number] Magnesium Sulfate 2 GM In 0.9 % 104 / 104 Sodium Chloride 100 ML @ 104 mls/hr IVPB ONCE ONE Rx#: [id number] Potassium Chloride 20 mEq/100 100 / 100 mL 20 meq In 100 ml @ 100 mls/ hr IVPB Q1H ONE Rx#:[id number] Output: Catheter 90 / 90 0 / 0 2-way Urethral 40 Other: Weight 70.851 kg 68.3 kg Blood Glucose* 126 Patient Weight 03/22/18 23:59 Weight 68.3 kg General: No Apparent Distress HEENT: Atraumatic, Normocephaly, Mucus Membranes Moist Neck: No JVD, Normal carotid pulses Cardiac: Reg Rate and Rhythm, Normal S1 and S2, No Murmur Lungs: Normal Breath Sounds, No Wheeze, Rales, Rhonchi Neuro: Other (dementia) Abdomen: Soft, Non-Tender Skin: No rashes noted on visualized skin Musculoskeletal: No Chest Wall Tenderness Extremities: No Clubbing, No Cyanosis, No Edema, Normal Pulses Results 03/22/18 09:40 03/21/18 22:06 Lab Results 03/21/18 03/21/18 03/22/18 22:06 22:06 05:22 WBC 9.6 Hgb 12.0 Hct 37.7 Plt Count 110 L INR APTT Sodium 141 Potassium 3.6 Chloride 109 H Carbon Dioxide 23 BUN 40 H Creatinine 1.47 H Glucose 109 H Calcium 7.3 L Magnesium 1.5 L Total Bilirubin 0.6 AST 14 ALT 13 Alkaline Phosphatase 62 Troponin I 0.05 H* 0.17 H* TSH 03/22/18 03/22/18 03/22/18 06:55 08:05 08:05 WBC Hgb Hct Plt Count INR 1.1 APTT 25.3 L Sodium Potassium Chloride Carbon Dioxide BUN Creatinine Glucose Calcium Magnesium Total Bilirubin AST ALT Alkaline Phosphatase Troponin I 0.19 H* TSH 0.169 L Short CBC 03/21/18 Range/Units 22:06 WBC 9.6 (4.3-11.1) K/mcL Hgb 12.0 (11.5-15.4) g/dL Hct 37.7 (35.3-44.9) % Plt Count 110 L (140-400) K/mcL Neutrophils # 8.4 (1.6-8.9) K/mcL BMP 03/21/18 Range/Units 22:06 Sodium 141 (136-145) mEq/L Potassium 3.6 (3.5-5.1) mEq/L Chloride 109 H (98-107) mEq/L Carbon Dioxide 23 (23-29) mEq/L BUN 40 H (8-23) mg/dL Creatinine 1.47 H (0.60-1.20) mg/dL Glucose 109 H (70-105) mg/dL Calcium 7.3 L (8.6-10.3) mg/dL Cardiac Enzymes 03/22/18 03/22/18 03/21/18 Range/Units 08:05 05:22 22:06 Troponin I 0.19 H* 0.17 H* 0.05 H* (< 0.04) ng/mL Liver Function 03/21/18 Range/Units 22:06 Total Bilirubin 0.6 (0.3-1.0) mg/dL Direct Bilirubin 0.2 (0.0-0.2) mg/dL AST 14 (13-39) Units/L ALT 13 (7-52) Units/L Alkaline Phosphatase 62 (34-104) Units/L Albumin 2.2 L (3.5-5.7) g/dL Urine 03/21/18 Range/Units 22:17 Urine Color Dark Yellow (Yellow) Urine Clarity Clear (Clear) Urine pH 5.0 (5.0-8.0) pH Units Ur Specific [place] 1.021 (1.010-1.025) Urine Protein Trace (Neg-Trace) mg/dL Urine Glucose (UA) Normal (Normal) mg/dL Impressions Chest X-Ray 03/21/18 22:07 IMPRESSION: No acute cardiopulmonary disease. D/ / Erick Murphy MD / Erick Murphy MD Interpreting Provider: Erick Murphy MD Chest X-Ray 03/22/18 01:09 IMPRESSION: Interval placement of right internal jugular central venous catheter which appears to be in expected position. No obvious immediate postprocedure complication. D/ / 03/22/2018 07:33:01 Gopal Rosen MD / [email or web address] Interpreting Provider: Gopal Rosen MD Head CT 03/22/18 01:38 IMPRESSION: No acute intracranial abnormality. Moderate chronic microangiopathic ischemic changes of cerebral white matter. Moderate to large right mastoid effusion, similar to prior examination. Sequela of chronic maxillary sinusitis. D/ / 03/22/2018 07:49:58 Hussein Oglesby / razia Interpreting Provider: Hussein Oglesby Active Medications Heparin Sodium (Porcine) (Heparin) 4,000 unit IVP Q6HR PRN PRN Reason: SEE COMMENTS Stop: 09/21/18 06:20 Heparin Sodium (Porcine) (Heparin) 2,000 unit 30 unit/kg (2000 unit) IVP Q6H PRN PRN Reason: SEE COMMENTS Stop: 09/21/18 06:20 Norepinephrine Bitartrate 4 mg (/ Dextrose) 254 mls @ 11.43 mls/hr IVC CONT [facility]; Protocol Stop: 09/21/18 01:46 Last Admin: 03/22/18 08:16 Dose: 12 mcg/min, 45.72 mls/hr Sodium Chloride (0.9 % Sodium Chloride) 1,000 mls @ 125 mls/hr IVC .Q8H [facility] Stop: 09/21/18 03:01 Last Admin: 03/22/18 07:35 Dose: Not Given Potassium Phosphate 44 meq/ (Sodium Chloride) 260 mls @ 40 mls/hr IVPB ONCE ONE Stop: 03/22/18 10:34 Last Admin: 03/22/18 04:42 Dose: 40 mls/hr Heparin Sodium/Dextrose (Heparin 25,000 Unit/500 Ml D5w) 25,000 unit in 500 mls @ 16.392 mls/hr IVC .Q24H [facility]; Protocol Stop: 09/21/18 06:31 Last Admin: 03/22/18 08:11 Dose: 16 unit/kg/hr, 21.856 mls/hr Metronidazole (Flagyl Premix 500 Mg/100 Ml) 500 mg in 100 mls @ 100 mls/hr IVPB Q8HR [facility] Stop: 09/21/18 08:01 Last Admin: 03/22/18 08:13 Dose: 100 mls/hr Albumin Human (Alburx 5%) 12.5 gm in 250 mls @ 60 mls/hr IVC .Q4H10M [facility] Stop: 03/22/18 15:49 Last Admin: 03/22/18 08:12 Dose: 60 mls/hr Cefepime HCl 1,000 mg/ Sterile (Water) 10 mls @ 300 mls/hr IVP Q12H [facility] Stop: 09/21/18 09:01 Vancomycin HCl 1,000 mg/ (Sodium Chloride) 250 mls @ 166.667 mls/hr IVPB Q24H [facility] Stop: 09/21/18 22:01 Levothyroxine Sodium (Synthroid) 44 mcg IVP 0630 [facility] Stop: 09/21/18 06:31 Last Admin: 03/22/18 05:51 Dose: 44 mcg Naloxone HCl (Narcan) 0.4 mg IVP Q2MIN PRN PRN Reason: SEE COMMENTS Stop: 09/21/18 04:10 Nystatin (Mycostatin) 1 appl TP QID [facility] Stop: 09/21/18 04:16 Last Admin: 03/22/18 08:13 Dose: 1 appl - EKG Interpretation EKG results cardiology: personally reviewed, other (12 hr tele AVG HR 97, SR) Consult Discharge Plan - Plan Referrals: NONE,PCP [Primary Care Provider] -
[2018-03-22] MEDS: Cefepime HCl 1,000 MG in Water for inj. (sterile) 20 ML 10 ML IVP SCH ×2 (12:55→20:26)
[2018-03-22 13:51] LABS: Alanine Aminotransferase 13 Units/L (7-52); Albumin 2.4 g/dL (3.5-5.7); Albumin/Globulin Ratio 1.5 (1.1-2.2); Alkaline Phosphatase 54 Units/L (34-104); Aspartate Amino Transferase 15 Units/L (13-39); BUN/Creatinine Ratio 32 (6-26); Bilirubin,Total 0.6 mg/dL (0.3-1.0); Blood Urea Nitrogen 34 mg/dL (8-23); Calcium 6.5 mg/dL (8.6-10.3); Carbon Dioxide 16 mEq/L (23-29); Chloride 114 mEq/L (98-107); Globulin 1.6 g/dL (2.4-3.5); Glucose 158 mg/dL (70-105); Osmolality,Calculated 303 (280-300); Phosphorous 5.1 mg/dL (2.7-4.5); Potassium 4.3 mEq/L (3.5-5.1); Sodium 141 mEq/L (136-145); eGFR For Non-African Americans 52 (> 60)
--- NOTE | 2018-03-22 16:13 | Electrocardiograph Report ---
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
[2018-03-22] MEDS ORDERED: Perflutren Lipid Microsphere 1.3 ML in 0.9 % Sodium Chloride 8.7 ML IVP ONE (16:50)
[2018-03-22] MEDS: Pantoprazole 40 MG VIAL IVP SCH (17:16)
[2018-03-23] MEDS ORDERED: *HR* LORazepam 2 MG/ML VIAL IVP ONE (00:51)
[2018-03-23 03:20] LABS: Basophils % 0.2 %; Hematocrit 25.8 % (35.3-44.9); Immature Granulocytes % 1.7 % (0-4); Lymphocytes # 0.6 K/mcL (0.6-4.6); Lymphocytes % 3.4 %; Mean Corpuscular HGB Conc 31.4 g/dL (31.6-35.5); Mean Corpuscular Hemoglobin 35.7 pg (28.0-33.3); Mean Corpuscular Volume 113.7 fL (83.0-100.0); Mean Platelet Volume 11.7 fL (9.4-12.4); Monocytes # 1.1 K/mcL (0.0-1.3); Monocytes % 6.4 %; Neutrophils # 15.5 K/mcL (1.6-8.9); Nucleated Red Blood Cells 0.2 /100 WBC (0); Platelet Count 168 K/mcL (140-400); Red Blood Count 2.27 M/mcL (3.82-4.97); Red Cell Distribution Width 16.2 % (11.5-14.5); Segmented Neutrophils % 88.3 %
[2018-03-23 03:33] LABS: Hemoglobin 8.1 g/dL (11.5-15.4)
[2018-03-23 03:40] LABS: Alanine Aminotransferase 13 Units/L (7-52); Albumin 2.3 g/dL (3.5-5.7); Albumin/Globulin Ratio 1.9 (1.1-2.2); Alkaline Phosphatase 42 Units/L (34-104); Aspartate Amino Transferase 12 Units/L (13-39); BUN/Creatinine Ratio 32 (6-26); Bilirubin,Total 0.5 mg/dL (0.3-1.0); Blood Urea Nitrogen 34 mg/dL (8-23); Calcium 6.6 mg/dL (8.6-10.3); Carbon Dioxide 15 mEq/L (23-29); Chloride 114 mEq/L (98-107); Globulin 1.2 g/dL (2.4-3.5); Glucose 271 mg/dL (70-105); Magnesium 1.8 mg/dL (1.6-2.6); Osmolality,Calculated 303 (280-300); Phosphorous 4.4 mg/dL (2.7-4.5); Sodium 138 mEq/L (136-145); Total Protein 3.5 g/dL (6.4-8.9); eGFR For Non-African Americans 51 (> 60)
[2018-03-23] MEDS ORDERED: Albumin 25% 25gram/100mL 25 GM/100 ML IV.SOLN IVPB ONE (03:47)
[2018-03-23] MEDS ORDERED: 0.9 % Sodium Chloride 1,000 ML IVC ONE ×2 (03:47→06:04)
[2018-03-23 03:51] LABS: Macrocytosis Present (Not Present); Platelet Estimate Normal (Normal)
[2018-03-23] MEDS: Norepinephrine 4 MG in D5% in Water 250 ML IVC SCH ×2 (05:47→08:25)
[2018-03-23] MEDS: Pantoprazole 40 MG VIAL IVP SCH ×2 (05:47→16:54)
[2018-03-23] MEDS: Levothyroxine Sodium 100 MCG VIAL IVP SCH (05:47)
[2018-03-23] MEDS: Heparin 25,000 UNIT/500 ML D5W 25,000 UNIT/500 ML BAG IVC SCH (06:44)
--- NOTE | 2018-03-23 07:12 | Pulmonology Progress Note ---
<Elio Ratliff - Last Filed: 03/23/18 15:38> Date of Encounter: 03/23/18 Time of Encounter: 09:30 Assessment and Plan (1) Hemorrhagic shock Current Visit: Yes Status: Acute Admitted from [facility] due to concerns for hypotension and decreased alertness BP on admission 99/48 Afebrile, tachycardic with HR 104 on admission, WBC 9.6, RR normal Do not suspect sepsis at this time, as there is no clear source of infection Pt was initially started on Heparin drip with elevated troponins Hgb this morning was 8.1 Heparin drip was subsequently stopped 1 unit of pRBCs transfused and repeat H&H to follow 1 hour after transfusion Pt remains hypotensive on Levophed Start Vasopressin Arterial line place for hemodynamic monitoring Continue to titrate pressors to maintain MAP>65 Monitor H&H and transfuse as needed Repeat CT head, chest, abdomen, and pelvis to evaluate for possible sources of bleeding (2) Metabolic acidosis Current Visit: Yes Status: Acute Non-anion gap metabolic acidosis labs from this morning Received 4 amps of Sodium Bicarb Initiated Bicarb drip Unable to adequately compensate from respiratory standpoint - elected to intubate pt Serial ABGs Continue to monitor (3) Leukocytosis Current Visit: Yes Status: Acute Head CT negative for acute abnormality. Moderate to large right mastoid effusion, suggestive of chronic sinusitis Follow up CT sinuses revealed opacification of the right ethmoid air cells. infection vs inflammation CXR revealed no acute abnormalities CT abdomen/pelvis: - diffuse colonic wall thickening suggestive of pancolitis - distended gallbladder with sludge vs stones. - bibasilar atelectasis - trace ascites UA was contaminated with many squamous epithelial cells. No bacteria or leukocyte esterase present. Received 1 day of Aztreonam and Vanc on 03/22 Continue Flagyl (day 2) Qualifiers: Leukocytosis type: bandemia Qualified Code(s): D72.825 - Bandemia (4) Elevated troponin Current Visit: Yes Status: Acute Initial troponin in emergency department 0.05 -> 0.17 -> 0.19 EKG showed sinus tachycardia with inverted T waves in leads I, AVL Pt denied any chest pain, shortness of breath, or diaphoresis Echo results as follows: - LVEF 65-70% - Normal LV chamber size, wall thickness, and systolic function - Mild LV diastolic dysfunction - mild aortic and tricuspic regurg - No pulmonary HTN - IVC normal dimensions and inspiratory collapse Cardio is on board - ACS unlikely. More likely demand ischemia related to hypotension (5) Schizoaffective disorder Current Visit: Yes Status: Chronic chronic issue Qualifiers: Schizoaffective disorder type: unspecified Qualified Code(s): F25.9 - Schizoaffective disorder, unspecified (6) Hypothyroidism Current Visit: Yes Status: Chronic TSH low at 0.169 normal T4 Mildly decreased T3 at 2 Will continue home dose synthroid Qualifiers: Hypothyroidism type: unspecified Qualified Code(s): E03.9 - Hypothyroidism, unspecified (7) DVT prophylaxis Current Visit: Yes Status: Acute EPCDs Hold heparin or further chemical prophylaxis with acute hemorrhagic anemia Subjective Principal diagnosis: Hypotension Interval history: Ms. Whitten is a 67F with PMH of HLD, depression, anxiety, GERD, HTN, osteoarthritis, dementia, panic disorder, and schizophrenia. Patient lives in [facility] and was brought to the ED by EMS due to concerns for hypotension, and decreased mentation. History is limited, as patient has baseline dementia, does not answer many questions, and patient had no family at bedside. There was also no paperwork sent with her from the [facility]. Upon arrival to the ED, patient was tachycardic and hypotensive with blood pressures running as low as 70/46. She received 500 ML bolus by squad, and an additional 2 L bolus in the ED yet still remained hypotensive. Patient had right IJ placed urgently in emergency department, and was started on levophed. Initial troponin at 0.05. EKG from ED showed sinus tach with inverted T waves in leads 1 and AVL. Chest x-ray and head CT from ED were unremarkable. Pt afebrile, with no elevated WBC, and no obvious source of infection on admission. Pt seen and examined at bedside. No acute events overnight. Pt is alert, and will follow commands. She will not answer questions, but this may be due to mentation vs other pathology. Objective PUL Vital signs: Last Vital Signs Temp 96.2 F L 03/23/18 04:00 Pulse 102 03/23/18 06:00 Resp 14 03/23/18 06:00 BP 76/50 03/23/18 06:00 Pulse Ox 100 03/23/18 06:00 General appearance: lethargic Eyes: nonicteric ENT: oropharynx moist Neck: supple, no lymphadenopathy, no JVD Effort: normal Auscultation: bilateral: clear Percussion: bilateral: not dull Tactile fremitus: bilateral: normal Cardiovascular: regular rate and rhythm Gastrointestinal: normoactive bowel sounds, soft, non-tender, non-distended Integumentary: other (pale ) Extremities: no cyanosis, no edema, no clubbing, pulses normal, cool Musculoskeletal: no deformities Gait: normal posture unable to assess due to mental status Results - Laboratory Findings CBC and BMP: 03/23/18 13:25 03/23/18 10:30 ABG ABG pH 7.22 pH Units (7.32-7.45) L 03/22/18 07:42 ABG pCO2 40 mmHg (35-45) 03/22/18 07:42 ABG pO2 134 mmHg (85-104) H 03/22/18 07:42 ABG O2 Saturation 98 % (95-98) 03/22/18 07:42 PT/INR, D-dimer PT 12.6 Seconds (9.4-12.1) H 03/22/18 06:55 Abnormal lab findings: Abnormal lab results WBC 17.5 K/mcL (4.3-11.1) H 03/23/18 03:06 RBC 2.27 M/mcL (3.82-4.97) L 03/23/18 03:06 Hgb 8.1 g/dL (11.5-15.4) L D 03/23/18 03:06 Hct 25.8 % (35.3-44.9) L 03/23/18 03:06 MCV 113.7 fL (83.0-100.0) H 03/23/18 03:06 MCH 35.7 pg (28.0-33.3) H 03/23/18 03:06 MCHC 31.4 g/dL (31.6-35.5) L 03/23/18 03:06 RDW 16.2 % (11.5-14.5) H 03/23/18 03:06 Neutrophils # 15.5 K/mcL (1.6-8.9) H 03/23/18 03:06 Nucleated RBCs/100 WBC 0.2 /100 WBC (0) H 03/23/18 03:06 Macrocytosis Present (Not Present) A 03/23/18 03:06 PT 12.6 Seconds (9.4-12.1) H 03/22/18 06:55 APTT 25.3 Seconds (26.0-36.0) L 03/22/18 06:55 Heparin Anti-Xa, Unfract 0.81 IU/mL (0.30-0.70) H 03/23/18 03:06 ABG pH 7.22 pH Units (7.32-7.45) L 03/22/18 07:42 ABG pO2 134 mmHg (85-104) H 03/22/18 07:42 ABG HCO3 16 mEq/L (21-27) L 03/22/18 07:42 ABG Total CO2 18 mEq/L (20-26) L 03/22/18 07:42 ABG Base Excess -11 mEq/L (-2 to 3) L 03/22/18 07:42 Chloride 114 mEq/L (98-107) H 03/23/18 03:06 Carbon Dioxide 15 mEq/L (23-29) L 03/23/18 03:06 BUN 34 mg/dL (8-23) H 03/23/18 03:06 Est GFR (Non-Af Amer) 51 (> 60) L 03/23/18 03:06 BUN/Creatinine Ratio 32 (6-26) H 03/23/18 03:06 Glucose 271 mg/dL (70-105) H 03/23/18 03:06 POC Glucose 143 mg/dL (70-99) H 03/22/18 23:39 Calculated Osmolality 303 (280-300) H 03/23/18 03:06 Calcium 6.6 mg/dL (8.6-10.3) L 03/23/18 03:06 AST 12 Units/L (13-39) L 03/23/18 03:06 Troponin I 0.19 ng/mL (< 0.04) H* 03/22/18 08:05 Serum Total Protein 3.5 g/dL (6.4-8.9) L 03/23/18 03:06 Albumin 2.3 g/dL (3.5-5.7) L 03/23/18 03:06 Globulin 1.2 g/dL (2.4-3.5) L 03/23/18 03:06 TSH 0.169 mcIU/mL (0.340-5.600) L 03/22/18 08:05 Free T3 2.00 pg/mL (2.50-3.90) L 03/22/18 08:05 Urine Ketones Trace mg/dL (Negative) H 03/21/18 22:17 Urine Bilirubin Large (Negative) H 03/21/18 22:17 Ur Squamous Epith Cells Many per lpf (None-Few) H 03/21/18 22:17 - Microbiology Findings Microbiology Findings: Microbiology, Last 48 Hours 03/21/18 22:25 Blood Culture - Preliminary Peripheral Venipuncture Culture is incubating and being continuously monitored for growth. Final report to follow. 03/21/18 22:31 Blood Culture - Preliminary Peripheral Venipuncture Culture is incubating and being continuously monitored for growth. Final report to follow. - Clinical Findings Intake & Output: Intake & Output 03/22/18 03/22/18 03/23/18 15:59 23:59 07:59 Intake Total 1865 / 1865 929 / 929 1529.3 / 1529.3 Output Total 50 / 50 95 / 95 90 / 90 Balance 1815 / 1815 834 / 834 1439.3 / 1439.3 Weight 68.3 kg 68.3 kg Consult Discharge Plan - Plan Referrals: NONE,PCP [Primary Care Provider] - <Pedro Rodriguez - Last Filed: 03/23/18 17:36> Date of Encounter: 03/23/18 Objective PUL Vital signs: Last Vital Signs Temp 96.2 F L 03/23/18 12:00 Pulse 103 03/23/18 12:03 Resp 21 03/23/18 14:03 BP 173/66 03/23/18 14:03 Pulse Ox 100 03/23/18 14:03 Ventilator Settings Ventilator Settings: Ventilator Settings, Last 8 Hours Ventilator Tidal Volume 380 Setting Ventilator Tidal Volume 450 Setting Ventilator Tidal Volume 450 Setting Ventilator Tidal Volume 450 Setting Ventilator Tidal Volume 450 Setting Ventilator Respiratory Rate 16 Setting Ventilator Respiratory Rate 20 Setting Ventilator Respiratory Rate 20 Setting Ventilator Respiratory Rate 20 Setting Ventilator Respiratory Rate 16 Setting Actual Respiratory Rate 24 Actual Respiratory Rate 24 Actual Respiratory Rate 22 Actual Respiratory Rate 24 Positive End Expiratory 5 Pressure Positive End Expiratory 5 Pressure Positive End Expiratory 5 Pressure Positive End Expiratory 5 Pressure Positive End Expiratory 5 Pressure Peak Inspiratory Airway 19 Pressure Peak Inspiratory Airway 19 Pressure Peak Inspiratory Airway 23 Pressure Peak Inspiratory Airway 21 Pressure Results - Laboratory Findings CBC and BMP: 03/23/18 13:25 03/23/18 10:30 ABG ABG pH 7.47 pH Units (7.32-7.45) H D 03/23/18 13:59 ABG pCO2 26 mmHg (35-45) L 03/23/18 13:59 ABG pO2 253 mmHg (85-104) H D 03/23/18 13:59 ABG O2 Saturation 100 % (95-98) H 03/23/18 13:59 PT/INR, D-dimer PT 15.7 Seconds (9.4-12.1) H 03/23/18 13:25 Abnormal lab findings: Abnormal lab results WBC 11.7 K/mcL (4.3-11.1) H 03/23/18 13:25 RBC 2.16 M/mcL (3.82-4.97) L 03/23/18 13:25 Hgb 6.7 g/dL (11.5-15.4) L 03/23/18 13:25 Hct 20.0 % (35.3-44.9) L 03/23/18 13:25 RDW 23.3 % (11.5-14.5) H 03/23/18 13:25 Plt Count 87 K/mcL (140-400) L 03/23/18 13:25 Band Neutrophils % 16.0 % (0-4) H 03/23/18 11:09 Neutrophils # 11.0 K/mcL (1.6-8.9) H 03/23/18 11:09 Lymphocytes # 0.3 K/mcL (0.6-4.6) L 03/23/18 11:09 Nucleated RBCs/100 WBC 0.4 /100 WBC (0) H 03/23/18 13:25 Platelet Estimate Decreased (Normal) L 03/23/18 11:09 Immature Plt Fraction 7.2 % (1.1-6.1) H 03/23/18 13:25 Anisocytosis 2+ (Not Present) A 03/23/18 11:09 Macrocytosis Present (Not Present) A 03/23/18 03:06 PT 15.7 Seconds (9.4-12.1) H 03/23/18 13:25 Fibrinogen 138 mg/dL (169-393) L D 03/23/18 13:25 Heparin Anti-Xa, Unfract 0.81 IU/mL (0.30-0.70) H 03/23/18 03:06 ABG pH 7.47 pH Units (7.32-7.45) H D 03/23/18 13:59 ABG pCO2 26 mmHg (35-45) L 03/23/18 13:59 ABG pO2 253 mmHg (85-104) H D 03/23/18 13:59 ABG HCO3 19 mEq/L (21-27) L 03/23/18 13:59 ABG O2 Saturation 100 % (95-98) H 03/23/18 13:59 ABG Base Excess -4 mEq/L (-2 to 3) L 03/23/18 13:59 Chloride 114 mEq/L (98-107) H 03/23/18 10:30 Carbon Dioxide 17 mEq/L (23-29) L 03/23/18 10:30 BUN 31 mg/dL (8-23) H 03/23/18 10:30 Est GFR (Non-Af Amer) 55 (> 60) L 03/23/18 10:30 BUN/Creatinine Ratio 31 (6-26) H 03/23/18 10:30 Glucose 263 mg/dL (70-105) H 03/23/18 10:30 POC Glucose 143 mg/dL (70-99) H 03/22/18 23:39 Calculated Osmolality 308 (280-300) H 03/23/18 10:30 Lactic Acid 3.2 mmol/L (0.5-2.2) H 03/23/18 11:09 Calcium 6.1 mg/dL (8.6-10.3) L 03/23/18 10:30 Venous Ioniz Calcium 0.90 mmol/L (1.15-1.35) L 03/23/18 10:49 Magnesium 1.5 mg/dL (1.6-2.6) L 03/23/18 10:30 AST 12 Units/L (13-39) L 03/23/18 03:06 Lactate Dehydrogenase 129 Units/L (140-271) L 03/23/18 07:51 Troponin I 0.19 ng/mL (< 0.04) H* 03/22/18 08:05 Serum Total Protein 3.5 g/dL (6.4-8.9) L 03/23/18 03:06 Albumin 2.3 g/dL (3.5-5.7) L 03/23/18 03:06 Globulin 1.2 g/dL (2.4-3.5) L 03/23/18 03:06 TSH 0.169 mcIU/mL (0.340-5.600) L 03/22/18 08:05 Free T3 2.00 pg/mL (2.50-3.90) L 03/22/18 08:05 Urine Ketones Trace mg/dL (Negative) H 03/21/18 22:17 Urine Bilirubin Large (Negative) H 03/21/18 22:17 Ur Squamous Epith Cells Many per lpf (None-Few) H 03/21/18 22:17 - Microbiology Findings Microbiology Findings: Microbiology, Last 48 Hours 03/23/18 11:30 Influenza Types A,B Antigen - Final Nasopharyngeal 03/21/18 22:25 Blood Culture - Preliminary Peripheral Venipuncture Culture is incubating and being continuously monitored for growth. Final report to follow. 03/21/18 22:31 Blood Culture - Preliminary Peripheral Venipuncture Culture is incubating and being continuously monitored for growth. Final report to follow. - Clinical Findings Intake & Output: Intake & Output 03/22/18 03/23/18 03/23/18 23:59 07:59 15:59 Intake Total 929 / 929 1529.3 / 1529.3 1119 / 1119 Output Total 95 / 95 90 / 90 25 / 25 Balance 834 / 834 1439.3 / 1439.3 1094 / 1094 Weight 68.3 kg 68.3 kg - Attending Attestation saw and evaluated this patient and my medical decision-making was reviewed with the Resident Physician. I agree with the documented findings, disposition and treatment plan as described except to the extent set forth below. We i ndependently had [id number]-sp-trec contact with the patient I spent 60 minutes of Critical Care time with this patient. It involved decision making of high complexity to assess, manipulate, and support vital organ system failure and/or to prevent further life threatening deterioration of the patient's condition. The time involved in the performance of separately reportable procedures was not counted toward critical care time. Patient seen and examined at bedside Labs, radiology, chart personally reviewed. Management was reviewed during multidisciplinary critical care rounds. ON SITE COORDINATOR: Patient has with altered mental status drowsy but arousable can tell where she is at she is AO X 1 is worse than her baseline looks like encephalopathy secondary to hypertension no focal neurological deficit CT head did not show any acute findings 03/23 patient is more alert than yesterday following commands no acute focal neurological deficit low concern for stroke since patient has this chronic sinusitis concern for meningitis will increase the antibiotic dose to meningitis coverage cannot do an lumbar puncture because of her underlying coagulopathy and she was recently on heparin for ACS Pulm: Patient has acceptable V/Q mismatch with acceptable oxygenation and ventilation no evidence of pneumonia patient have some possible chronic sinus infection will get CT sinuses to look for any collection that can be drained. 03/23 patient has acceptable oxygenation and ventilation patient has worsening metabolic acidosis which she cannot respiratory compensate so I decided to intubate and mechanically ventilate her and to correct metabolic acidosis . Cards: Patient is in shock most likely sepsis versus cardiogenic complicated by some volume depletion to keep the vasopressors and the map around 65 will wait for transthoracic echocardiogram will trend troponins we will look for other sources of sepsis. 03/23 there is no evidence of cardiac in shock and not convinced about septic shock either with his drop in hemoglobin with patient on heparin for ACS and concerned about more of hemorrhagic shock stopped the heparin when I came in for my shift . I sent her for CT chest abdomen pelvis and thigh for dissection protocol found to have a large intramuscular hematoma in her left thigh with a bleeding vessel I spoke with interventional radiologist will try to call coil the bleeding vessel. I went over echocardiogram personally with a non-electronic warfare operator which showed hyperdynamic left ventricle with good right ventricle function with some inspiratory collapse of IVC more pointing towards hypokalemia FEN-GI: We will keep her nothing by mouth no evidence of GI bleed the bleeding is more from the intramuscular hematoma Renal: Patient has poor urine output in the range of Anuria nephrology consult that patient has severe metabolic acidosis might need dialysis in a day or 2. ID: To look for other source for sepsis due to CT sinuses and CT abdomen and pelvis without any ON SITE COORDINATOR infection to continue broad-spectrum antibiotics to follow cultures. 03/23 no obvious source of sepsis will cover with broad-spectrum antibiotics will do meningitis coverage. If after correcting the hyponatremia and the bleeding if still she is in shock will consult infectious disease. Heme/Onc: Patient looks like DIC but there is no obvious reason for this DIC unless there is any septic focus to correct coagulopathy. To replete the blood loss anemia with PRBC. Low concern for TTP. EPCD . Heparin stopped Endo: Glucose Monitored Integ/MSK: Skin Care per routine ICU Nursing Protocol to prevent ulcers. Lines: All lines examined without evidence of infection : Dispo: Critically ill , Family updated CODE:Full Code
[2018-03-23] MEDS ORDERED: 0.9 % Sodium Chloride 1,000 ML ONE ×2 (07:47→13:57)
[2018-03-23 08:10] LABS: INR 1.6; Prothrombin Time 17.7 Seconds (9.4-12.1)
[2018-03-23] MEDS ORDERED: *HR* Etomidate 20 MG/10 ML AMPUL IVP ONE (08:11)
[2018-03-23] MEDS: Cefepime HCl 1,000 MG in Water for inj. (sterile) 20 ML 10 ML IVP SCH (08:27)
[2018-03-23] MEDS: Nystatin OINT 15 GM TUBE TP SCH ×4 (08:28→19:49)
[2018-03-23] MEDS: MetroNIDAZOLE 500 MG/100 ML 500 MG/100 ML BAG IVPB SCH ×3 (08:28→23:01)
--- NOTE | 2018-03-23 08:36 | Procedure Note ---
<Elio Ratliff - Last Filed: 03/23/18 08:33> Date of procedure: 03/23/18 Pre-op diagnosis: hypotension Post-op diagnosis: same Procedure: Date: 03/23/18 Time: 824 Indication: Hemodynamic monitoring Resident: Elio Ratliff Attending: Dr. Rodriguez A time-out was completed verifying correct patient, procedure, site, positioning, and special equipment if applicable. Allens test was performed to ensure adequate perfusion. The patients left wrist was prepped and draped in sterile fashion. 1% Lidocaine was used to anesthetize the area. A 20G Arrow arterial line was introduced into the radial artery. The catheter was threaded over the guide wire and the needle was removed, but no pulsatile blood return was seen. A second attempt was made, but once the catheter was in place, there was no pulsatile blood return. Finally a third attempt was made by Dr. Rodriguez, and when the guide wire was removed there was appropriate pulsatile blood return. The catheter was then sutured in place to the skin and a sterile dressing applied. Perfusion to the extremity distal to the point of catheter insertion was checked and found to be adequate. Dr. Rodriguez was present for the entire procedure. Estimated Blood Loss: 5mL The patient tolerated the procedure well and there were no complications. Anesthesia: local Surgeon: Elio Ratliff Was there an outpatient physical therapist assistant present: Yes Internet Marketer: Pedro Rodriguez Estimated blood loss (cc): 5 Specimen: none Pathology: none sent Condition: critical Disposition: ICU <Pedro Rodriguez - Last Filed: 03/23/18 09:39> Procedure: I was present during the entire procedure i personally did the third attempt which was successful.
[2018-03-23] MEDS ORDERED: 0.9 % Sodium Chloride 250 ML ONE (09:08)
[2018-03-23 09:15] LABS: Activated Partial Thrombo Time 87.6 Seconds (26.0-36.0)
[2018-03-23] MEDS ORDERED: Cefepime HCl 1,000 MG in Water for inj. (sterile) 20 ML 10 ML IVP ONE (09:15)
--- NOTE | 2018-03-23 09:28 | Cardiology Progress Note ---
Date of Encounter: 03/23/18 Time of Encounter: 09:00 Assessment and Plan (1) Elevated troponin Current Visit: Yes Status: Acute Troponins 0.5, 0.17, 0.19 in setting of hypotension, BREE, sepsis. Suspect demand ischemia, nondiagnostic for ACS. Presentation is not consistent with ACS. Suspected sepsis--WBC elevated, hypotension despite pressors, and hypothermia overnight. Acute anemia developed overnight HgB 11--->8, heparin gtt stopped. No obvious source of bleeding, oozing noted at PIV sites, fibrinogen critically low. TTE 03/22/18: LVEF 65-70%, normal wall motion. No immediate indication for further cardiac intervention. Consider addition of BB, statin, asa if able when hemodynamically stable or upon discharge. No indication for cardiac rehab at this time. Continue supportive care per ICU mgmt. Cardiology will sign-off; please call with questions. (2) Hypotension Current Visit: Yes Status: Acute Received fluid boluses in ED/ICU, remained hypotensive. Started on Levophed, currently at 45 mcg/kg/min; vasopressin ordered. Appears to have sepsis; developed acute anemia overnight. Continue supportive mgmt from ICU team. Qualifiers: Hypotension type: unspecified hypotension type Qualified Code(s): I95.9 - Hypotension, unspecified Discussion w patient/family: The assessment and plan as outlined above was discussed with the patient and/or family members who expressed understanding and agreement. All questions were answered. Thank you for involving us in the care of your patient. Please call with any questions. The patient will be discussed and reviewed with Dr. Hall; changes to be made accordingly. Subjective Principal diagnosis: Hypotension, sepsis, elevated troponin Interval history: Seen and examined. Baseline--dementia. Eyes open spontaneously. Discussed with bedside RN--difficulty maintaing SBP >90 this AM, on high doses of levophed. A-line inserted. Significant WBC elevation yesterday, acute anemia developed overnight. Hypothermia noted overnight, min temp 95.9 Oozing noted at peripheral IV sites, minimal urine output this AM, ~25 mL. Objective Vital Signs, Last 4 Hours Pulse Resp BP Pulse Ox 03/23/18 09:21 108 14 103/42 100 03/23/18 08:00 109 14 84/48 100 03/23/18 07:00 105 12 83/48 100 03/23/18 06:00 102 14 76/50 100 General: Other (Appears chronically ill) HEENT: Atraumatic, Normocephaly, Other (dry mucous membranes) Cardiac: Other (tachycardiac, regular rhythm) Lungs: Normal Breath Sounds (anterior only) Neuro: Other (dementia) Abdomen: Soft Skin: Other (oozing at peripherial IV sites) Musculoskeletal: No Chest Wall Tenderness Extremities: Other (cool extremities, faint distal pulses) Results 03/23/18 03:06 03/23/18 03:06 Lab Results 03/22/18 03/22/18 03/23/18 09:40 13:15 03:06 WBC 18.3 H D 17.5 H Hgb 11.0 L 8.1 L D Hct 34.2 L 25.8 L Plt Count 144 168 INR APTT Sodium 141 Potassium 4.3 Chloride 114 H Carbon Dioxide 16 L BUN 34 H Creatinine 1.05 Glucose 158 H Calcium 6.5 L Magnesium 2.0 Total Bilirubin 0.6 AST 15 ALT 13 Alkaline Phosphatase 54 03/23/18 03/23/18 03:06 07:51 WBC Hgb Hct Plt Count INR 1.6 APTT 87.6 H D Sodium 138 Potassium 4.0 Chloride 114 H Carbon Dioxide 15 L BUN 34 H Creatinine 1.07 Glucose 271 H Calcium 6.6 L Magnesium 1.8 Total Bilirubin 0.5 AST 12 L ALT 13 Alkaline Phosphatase 42 Active Medications Norepinephrine Bitartrate 4 mg (/ Dextrose) 254 mls @ 11.43 mls/hr IVC CONT [facility]; Protocol Stop: 09/21/18 01:46 Last Admin: 03/23/18 08:25 Dose: 30 mcg/min, 114.3 mls/hr Metronidazole (Flagyl Premix 500 Mg/100 Ml) 500 mg in 100 mls @ 100 mls/hr IVPB Q8HR [facility] Stop: 09/21/18 08:01 Last Admin: 03/23/18 08:28 Dose: 100 mls/hr Vancomycin HCl 1,000 mg/ (Sodium Chloride) 250 mls @ 166.667 mls/hr IVPB Q24H [facility] Stop: 09/21/18 22:01 Last Infusion: 03/22/18 23:48 Dose: Infused Vasopressin 40 unit/ Dextrose 102 mls @ 4.59 mls/hr IV .[id number] [facility] Stop: 09/22/18 09:16 Cefepime HCl 2,000 mg/ Sterile (Water) 20 mls @ 300 mls/hr IVP Q12H [facility] Stop: 09/22/18 21:01 Levothyroxine Sodium (Synthroid) 44 mcg IVP 0630 [facility] Stop: 09/21/18 06:31 Last Admin: 03/23/18 05:47 Dose: 44 mcg Naloxone HCl (Narcan) 0.4 mg IVP Q2MIN PRN PRN Reason: SEE COMMENTS Stop: 09/21/18 04:10 Nystatin (Mycostatin) 1 appl TP QID [facility] Stop: 09/21/18 04:16 Last Admin: 03/23/18 08:28 Dose: 1 appl Pantoprazole Sodium (Protonix) 40 mg IVP Q12HR [facility] Stop: 09/21/18 18:01 Last Admin: 03/23/18 05:47 Dose: 40 mg Impressions Echocardiogram 03/22/18 05:15 Impressions: LVEF 65-70%. Normal LV chamber size, wall thickness and systolic function. Mild left ventricular diastolic dysfunction. Normal right ventricular structure and function. Mild-moderate aortic regurgitation. Mild mitral regurgitation. No pulmonary hypertension. Estimated RA pressure is 5 mmHg. Left Ventricular Wall Motion: Rest Echo Findings All wall segments showed normal motion. Findings: Study Quality * Technically adequate exam. ECG Findings * Normal sinus rhythm. Left Ventricle * LVEF 65-70%. * Normal LV chamber size, wall thickness and systolic function. * Mild left ventricular diastolic dysfunction. Right Ventricle * Normal right ventricular structure and function. Left Atrium * Normal left atrial size. Right Atrium * Normal right atrial size. Interatrial Septum * Interatrial septum not well evaluated. * No evidence of PFO by color Doppler. Aortic Valve * Mildly calcified aortic valve leaflets. * Mild-moderate aortic regurgitation. * No aortic stenosis. Mitral Valve * Normal mitral valve structure. * No mitral stenosis. * Mild mitral regurgitation. Tricuspid Valve * Normal tricuspid valve structure and function. * No tricuspid stenosis. * Trace tricuspid regurgitation. * Estimated RVSP is 30 mmHg. * Estimated RA pressure is 5 mmHg. * No pulmonary hypertension. Pulmonic Valve * Normal pulmonic valve structure. * No pulmonic stenosis. * Trace pulmonic regurgitation. Aorta * Normally sized aortic root. Pericardium * The pericardium appears normal. IVC * Normal IVC dimensions and inspiratory collapse. Abdomen/Pelvis CT 03/22/18 15:48 IMPRESSION: Diffuse apparent colonic wall thickening suggestive of pancolitis. Distended gallbladder with hyperdense sludge versus small stones. No wall thickening or inflammatory change identified. If there is suspicion for cholecystitis, further evaluation with ultrasound or HIDA scan may provide more information. Trace effusions and basilar opacities consistent with atelectasis. Trace ascites. Punctate left nephrolithiasis. D/ / Brennan Chambers / Brennan Chambers Interpreting Provider: Brennan Chambers Sinuses CT 03/22/18 15:48 IMPRESSION: Opacification of many of the right ethmoid air cells is noted which can be clinically correlated for infection or inflammation. The remainder of the paranasal sinuses are well aerated. Soft tissue densities are present in both external auditory canals which can be clinically correlated for impacted cerumen. Other findings as above. D/ / 03/22/2018 17:15:45 Kylah Gagnon MD / earnold Interpreting Provider: Kylah Gagnon MD - Imaging and Cardiology Echo: report reviewed Other Results: 12 hour tele: avg VV=495 SR/ST. No events noted, short run of PAT noted. - EKG Interpretation EKG results cardiology: personally reviewed Consult Discharge Plan - Plan Referrals: NONE,PCP [Primary Care Provider] -
[2018-03-23] MEDS: Vasopressin 40 UNIT in D5% in Water 100 ML IV SCH (09:56)
[2018-03-23 10:02] LABS: ABG Base Excess -13 mEq/L (-2 to 3); ABG HCO3 15 mEq/L (21-27); ABG Oxygen Saturation 99 % (95-98); ABG PCO2 48 mmHg (35-45); ABG PH 7.11 pH Units (7.32-7.45); ABG PO2 217 mmHg (85-104); ABG TCO2 17 mEq/L (20-26)
--- NOTE | 2018-03-23 10:19 | Procedure Note ---
<Elio Ratliff - Last Filed: 03/23/18 10:17> Date of procedure: 03/23/18 Pre-op diagnosis: respiratory failure with hypoxia Post-op diagnosis: same Procedure: Date: 03/23/18 Time: 10:05 Indication: Respiratory Distress Resident: Elio Ratliff Attending: Dr. Rordiguez A time-out was completed verifying correct patient, procedure, site, positioning, and special equipment if applicable. The patient was placed in a flat position. Sedation was obtained using Etomidate 15mg. The patient was easily ventilated using an ambu bag. The [employer] was used and inserted into the oropharynx at which time there was a Grade 1 view of the vocal cords. A 7.5-georgian endotracheal tube was inserted and visualized going through the vocal cords. The stylette was removed. Colorimetric change was visualized on the CO2 meter. Breath sounds were heard in both lung sheridan equally. The endotracheal tube was placed at 21 cm, measured at the teeth. Dr. Rodriguez was present for the entire procedure. A chest x-ray was ordered to assess for pneumothorax and verify endotrachealtube placement. Estimated Blood Loss: 0mL The patient tolerated the procedure well and there were no complications. Anesthesia: IV sedation Surgeon: Elio Ratliff Was there an speech therapy assistant present: Yes Filament Welder: Pedro Rodriguez Estimated blood loss (cc): 0 Specimen: none Pathology: none sent Condition: critical Disposition: ICU <Pedro Rodriguez - Last Filed: 03/23/18 14:12> Procedure: I was present during the entire procedure assisted in critical steps of intubation.
[2018-03-23] MEDS ORDERED: Sodium Bicarbonate 150 MEQ in D5% in Water 1,000 ML IVC SCH (10:30)
[2018-03-23] MEDS ORDERED: Dextrose Gel 15 GM/37.5 ML TUBE PO PRN ×2 (10:47)
[2018-03-23] MEDS ORDERED: Artificial Tears SOLN 15 ML BOTTLE BOTH EYES PRN (10:47)
[2018-03-23] MEDS ORDERED: D5% in Water 1,000 ML IVC PRN (10:47)
[2018-03-23] MEDS ORDERED: *HR* Dextrose 50 % in Water (Syg) 50 ML SYRINGE IVP PRN (10:47)
[2018-03-23 11:09] LABS: BUN/Creatinine Ratio 31 (6-26); Blood Urea Nitrogen 31 mg/dL (8-23); Calcium 6.1 mg/dL (8.6-10.3); Carbon Dioxide 17 mEq/L (23-29); Chloride 114 mEq/L (98-107); Creatine Kinase 112 Units/L (30-223); Glucose 263 mg/dL (70-105); Magnesium 1.5 mg/dL (1.6-2.6); Osmolality,Calculated 308 (280-300); Phosphorous 4.2 mg/dL (2.7-4.5); Potassium 3.5 mEq/L (3.5-5.1); Sodium 141 mEq/L (136-145); eGFR For Non-African Americans 55 (> 60)
[2018-03-23] MEDS ORDERED: Calcium Gluconate 2,000 MG in 0.9 % Sodium Chloride 100 ML IVPB ONE ×2 (11:18→20:57)
[2018-03-23 11:24] LABS: Hematocrit 24.2 % (35.3-44.9); Hemoglobin 7.8 g/dL (11.5-15.4); Immature Platelets 6.5 % (1.1-6.1); Mean Corpuscular HGB Conc 32.2 g/dL (31.6-35.5); Mean Corpuscular Hemoglobin 30.7 pg (28.0-33.3); Mean Corpuscular Volume 95.3 fL (83.0-100.0); Nucleated Red Blood Cells 0.4 /100 WBC (0); Red Blood Count 2.54 M/mcL (3.82-4.97); Red Cell Distribution Width 22.5 % (11.5-14.5)
[2018-03-23 11:26] LABS: Platelet Count 91 K/mcL (140-400)
[2018-03-23] MEDS: Norepinephrine 8 MG in D5% in Water 250 ML IVC SCH ×3 (11:43→22:00)
[2018-03-23] MEDS ORDERED: Isovue-370 500 ML INFUS..BTL IV ONE (12:09)
[2018-03-23 12:11] LABS: Anisocytosis 2+ (Not Present); Lymphocytes # 0.3 K/mcL (0.6-4.6); Monocytes # 1.3 K/mcL (0.0-1.3); Platelet Estimate Decreased (Normal)
[2018-03-23 12:15] LABS: ABG Base Excess 0 mEq/L (-2 to 3); ABG HCO3 22 mEq/L (21-27); ABG Oxygen Saturation 100 % (95-98); ABG PCO2 22 mmHg (35-45); ABG PO2 451 mmHg (85-104); ABG TCO2 22 mEq/L (20-26); Blood Gas Modality VC; Blood Gas PEEP 5 cm H2O; Blood Gas Respiration Rate 16; Blood Gas VT 450 cc
[2018-03-23 13:38] LABS: Hemoglobin 6.7 g/dL (11.5-15.4); Red Blood Count 2.16 M/mcL (3.82-4.97)
[2018-03-23 13:40] LABS: Basophils % 0.1 %; Immature Granulocytes % 1.4 % (0-4); Immature Platelets 7.2 % (1.1-6.1); Lymphocytes # 0.5 K/mcL (0.6-4.6); Lymphocytes % 4.3 %; Mean Corpuscular HGB Conc 33.5 g/dL (31.6-35.5); Mean Corpuscular Volume 92.6 fL (83.0-100.0); Mean Platelet Volume 12.3 fL (9.4-12.4); Monocytes # 0.7 K/mcL (0.0-1.3); Monocytes % 6.2 %; Neutrophils # 10.3 K/mcL (1.6-8.9); Nucleated Red Blood Cells 0.4 /100 WBC (0); Red Cell Distribution Width 23.3 % (11.5-14.5)
[2018-03-23 13:41] LABS: Platelet Count 87 K/mcL (140-400)
[2018-03-23] MEDS: Insulin LISPRO 300 UNITS/3 ML VIAL SQ SCH ×3 (13:45→19:40)
[2018-03-23] MEDS: Artificial Tears SOLN 15 ML BOTTLE BOTH EYES SCH ×4 (13:46→23:02)
[2018-03-23 13:48] LABS: INR 1.4; Prothrombin Time 15.7 Seconds (9.4-12.1)
[2018-03-23 13:53] LABS: Activated Partial Thrombo Time 27.7 Seconds (26.0-36.0)
[2018-03-23 14:03] LABS: ABG Base Excess -4 mEq/L (-2 to 3); ABG HCO3 19 mEq/L (21-27); ABG Oxygen Saturation 100 % (95-98); ABG PCO2 26 mmHg (35-45); ABG PH 7.47 pH Units (7.32-7.45); ABG PO2 253 mmHg (85-104); ABG TCO2 20 mEq/L (20-26); Blood Gas Modality VC; Blood Gas PEEP 5 cm H2O; Blood Gas Respiration Rate 16; Blood Gas VT 380 cc
[2018-03-23] MEDS ORDERED: Heparin 1,000 UNITS/500 mL 500 ML ONE (14:04)
[2018-03-23] MEDS ORDERED: 0.9 % Sodium Chloride 500 ML ONE (14:04)
[2018-03-23 14:24] LABS: Anisocytosis 1+ (Not Present); Microcytosis Present (Not Present)
[2018-03-23 14:25] LABS: Macrocytosis Present (Not Present); Platelet Estimate Decreased (Normal)
[2018-03-23 14:41] LABS: Adenovirus Not Detected (Not Detect); Bordetella Pertussis Not Detected (Not Detect); Chlamydophila pneumoniae Not Detected (Not Detect); Coronavirus 229E Not Detected (Not Detect); Coronavirus HKU1 Not Detected (Not Detect); Coronavirus NL63 Not Detected (Not Detect); Coronavirus OC43 Not Detected (Not Detect); Human Metapneumovirus Not Detected (Not Detect); Human Rhinovirus/Enterovirus Not Detected (Not Detect); Influenza A Subtype 2009 H1 Not Detected (Not Detect); Influenza A Untypeable Not Detected (Not Detect); Influenza B Not Detected (Not Detect); Mycoplasma pneumoniae Not Detected (Not Detect); Parainfluenza Virus 1 Not Detected (Not Detect); Parainfluenza Virus 2 Not Detected (Not Detect); Parainfluenza Virus 3 Not Detected (Not Detect); Parainfluenza Virus 4 Not Detected (Not Detect); Respiratory Syncytial Virus Not Detected (Not Detect)
[2018-03-23] MEDS ORDERED: Isovue-300 50 ML VIAL IVP ONE (14:48)
[2018-03-23] MEDS ORDERED: *HR* Heparin 5,000 UNIT/ML VIAL ONE (15:09)
--- NOTE | 2018-03-23 15:13 | Nephrology Consult Note ---
Date of Encounter: 03/23/18 Time of Encounter: 11:30 Assessment and Plan (1) Decreased urination Current Visit: Yes Status: Acute She has been noted to have decreased urinary output. This is likely secondary to shock that is still he worked up as either septic or cardiogenic in setting of volume depletion. She has no prior history of chronic disease and there is no baseline serum creatinine GFR upon examination of records. I&O: 4577/235 poor urine output creatinine WNL GFR 55 plan: -Expectedly there will be a rise in creatinine due to the patient being an shock with hypertension. Will plan to have IR place temporary HD line tomorrow. Will plan to manage the renal replacement support. -Continue renal protective strategies such as avoid nephrotoxic and renal dose medications -continue Luna catheterization for strict I&O -will continue to monitor serum creatinine (2) Anemia Current Visit: Yes Status: Acute Anemia. CT imaging demonstrated hematoma and left thigh hemoglobin 6.7, at admission was [address] demonstrating bilobed hematoma in left thigh adductor muscle measuring 11.1 cm x 5.9 cm Plan: -Patient is receiving 3 units of packed red blood cells, 4 plasma, 1 cryoprecipitate -continue to monitor and transfuse as needed Qualifiers: Chronic kidney disease stage: unspecified stage Qualified Code(s): N18.9 - Chronic kidney disease, unspecified; D63.1 - Anemia in chronic kidney disease (3) Hypocalcemia Current Visit: Yes Status: Acute Hypocalcemia -calcium 6.1 -ionized calcium 0.9 -continue to supplement and monitor (4) Hypomagnesemia Current Visit: Yes Status: Acute Hypomagnesemia, magnesium 1.5 -supplementation and continue to monitor (5) Hypotension Current Visit: Yes Status: Acute Shock that is most likely sepsis versus cardiogenic. Hypotension despite IV fluid bolus is requiring 3 vasopressor suppressor support. Elevated WBC. -Management per critical care team Qualifiers: Hypotension type: unspecified hypotension type Qualified Code(s): I95.9 - Hypotension, unspecified History of Present Illness - Reason for Consult Consult date: 03/23/18 (anuric) Requesting physician: Elio Ratliff - Chief Complaint Hypotension - History of Present Illness Ms. Whitten is a 67 year old female with past medical history of schizophrenia, hypothyroidism, dementia, depression who presented to [facility] from [facility] due to hypotension and decreased interaction. Nephrology was consulted due to the patient being anuric. Upon my examination of the patient she is intubated on mechanical ventilation and there is no family at bedside. History was taken from medical records. She has no history of CKD and has not been seen in the [facility] specialist office after review of [facility] and prior hospital admissions. In the ED the patient was tachycardic and hypotensive with blood pressure running as low as 70/46. The patient was still hypotensive after receiving 2.5L boluses of IV fluids. A right IJ was placed emergently in the ED and she was started on levophed. She was then transferred to the ICU. Past Med Surg Social Fam HX - Past Medical History Attestation: Yes The following information was validated with the patient. Source: patient Medical history: dementia, GERD, thyroid disease Psychiatric history: anxiety, panic disorder, schizophrenia, other - Past Surgical History Surgical History: non-contributory - Social History Smoking Status: Unknown if ever smoked Alcohol use: unknown Drug use: unknown Medications and Allergies Acetaminophen [Tylenol Arthritis] 650 mg PO Q6H PRN 03/22/18 [History] Acetaminophen [Tylenol] 650 mg PO BID PRN 03/22/18 [History] Docusate [Colace] 100 mg PO DAILY PRN 03/22/18 [History] LORazepam [Ativan] 0.5 mg PO BID PRN 03/22/18 [History] Levothyroxine [Synthroid] 88 mcg PO 0630 03/22/18 [History] Pyrithione Zinc [Selsun Blue] 1 appl TP TUFR PRN 03/22/18 [History] Sertraline [Zoloft] 50 mg PO DAILY 03/22/18 [History] Zolpidem [Ambien] 5 mg PO HS PRN 03/22/18 [History] risperiDONE [Risperdal] 2 mg PO HS 03/22/18 [History] Allergy/AdvReac Type Severity Reaction Status Date / Time Penicillins Allergy See Verified 03/22/18 07:40 Comments Review of Systems ROS unobtainable: due to endotracheal tube Exam - Vital Signs Vital signs: Initial Vital Signs Temp Pulse Resp BP Pulse Ox 99.3 F 104 18 99/48 93 03/21/18 22:13 03/21/18 22:13 03/21/18 22:13 03/21/18 22:13 03/21/18 22:13 Vital Signs - Last 8 Hours Temp Pulse Resp BP Pulse Ox 03/23/18 15:04 110 136/63 100 03/23/18 14:59 114 147/65 100 03/23/18 14:52 111 133/50 100 03/23/18 14:47 112 110/46 100 03/23/18 14:42 116 127/47 100 03/23/18 14:36 96.7 F L 110 21 125/51 100 03/23/18 14:15 96.6 F L 107 21 142/55 100 03/23/18 14:03 21 173/66 100 03/23/18 14:00 112 21 107/50 100 03/23/18 13:00 98 20 102/51 100 03/23/18 12:03 96.0 F L 113 21 98/48 100 03/23/18 12:00 96.2 F L 111 24 151/58 100 03/23/18 11:51 96.2 F L 105 22 130/52 100 03/23/18 11:48 96.2 F L 106 21 135/53 100 03/23/18 10:11 16 110/50 100 03/23/18 09:53 105 14 111/47 03/23/18 09:36 107 14 113/49 86 03/23/18 09:21 108 14 103/42 100 03/23/18 08:00 109 14 84/48 100 Intake and Output 03/22/18 03/23/18 03/23/18 23:59 07:59 15:59 Intake Total 929 / 929 1529.3 / 1529.3 1269 / 1269 Output Total 95 / 95 90 / 90 25 / 25 Balance 834 / 834 1439.3 / 1439.3 1244 / 1244 Intake: IV Fluids 929 / 929 1529.3 / 1529.3 619 / 619 Vasostrict 40 UNIT In Dextrose 1 / 1 5% 100 ML @ 0.03 UNIT/MIN 4.59 mls/hr IV .[id number] [facility] Rx#: [id number] 0.9 % Sodium Chloride 1,000 ML 1000 / 1000 @ 999 mls/hr IVC .Q1H1M [facility] Rx# :[id number] ALBURX 5% 12.5 gm In 250 ml @ 250 / 250 60 mls/hr IVC .Q4H10M [facility] Rx#: [id number] Heparin 25,000 UNIT/500 ML D5W 210 / 210 80.3 / 80.3 25,000 unit In 500 ml @ 12 UNIT /KG/HR 16.392 mls/hr IVC .Q24H [facility] Rx#:[id number] Levophed 4 MG In Dextrose 5% 109 / 109 249 / 249 508 / 508 250 ML @ 3 MCG/MIN 11.43 mls/hr IVC CONT [facility] Rx#:[id number] Maxipime 1,000 MG In Water for inj. (sterile) 10 ML @ 300 mls/ hr IVP Q12H [facility] Rx#:[id number] Flexbumin 25 gm In 100 ml @ 60 100 / 100 mls/hr IVPB ONCE [facility] Rx#: [id number] Flagyl Premix 500 MG/100 ML 500 100 / 100 100 / 100 100 / 100 mg In 100 ml @ 100 mls/hr IVPB Q8HR [facility] Rx#:[id number] Vancocin 1,000 MG In 0.9 % 250 / 250 Sodium Chloride 250 ML @ 166. 667 mls/hr IVPB Q24H [facility] Rx#: [id number] Blood Product 650 / 650 Cryoprecipitate Pooled Unit 150 / 150 [id number] Cryoprecipitate Pooled Unit 200 / 200 [id number] Rbcs Leuko Poor As-1 Unit 300 / 300 [id number] Output: Catheter 95 / 95 90 / 90 25 / 25 Other: Stool Size Small Stool Consistency loose Stool Color Brown Weight 68.3 kg 68.3 kg Blood Glucose* 126 143 264 Patient Weight 03/23/18 23:59 Weight 68.3 kg - General Appearance Exam: Gen.: Vitals noted. Intubated on mechanical ventilation HEENT: oropharynx clear, Normocephalic, atraumatic Neck: Supple. No adenopathy. Cardiac: RRR, no murmur, +S1/S2, no edema Pulmonary: CTA bilaterally anteriorly, equal chest expansion Abdomen: soft, Bowel sounds noted MSK: ROM intact, no joint swelling noted Extremities: no cyanosis or clubbing Neuro: sedated on mechanical ventilation Results - Lab Results 03/23/18 13:25 03/23/18 10:30 Most recent lab results ABG pH 7.47 pH Units (7.32-7.45) H D 03/23/18 13:59 ABG pCO2 26 mmHg (35-45) L 03/23/18 13:59 ABG pO2 253 mmHg (85-104) H D 03/23/18 13:59 ABG HCO3 19 mEq/L (21-27) L 03/23/18 13:59 ABG O2 Saturation 100 % (95-98) H 03/23/18 13:59 Calcium 6.1 mg/dL (8.6-10.3) L 03/23/18 10:30 Phosphorus 4.2 mg/dL (2.7-4.5) 03/23/18 10:30 Magnesium 1.5 mg/dL (1.6-2.6) L 03/23/18 10:30 Consult Discharge Plan - Plan Referrals: NONE,PCP [Primary Care Provider] -
--- NOTE | 2018-03-23 15:15 | IR Procedure Note ---
Date of procedure: 03/23/18 Consent Obtained: Verbal consent Timeout: Correct patient and procedure verified, Correct site verified, Time out performed, Skin prep completed Local anesthetic: Lidocaine 1% Indications: Acute thigh bleed, ARF Procedure Performed: LLE Angio, Temp HD catheter placement Was there an bookkeeping assistant present: No Site/Technique: LLE angiograms performed, followed by placement of a temp HD Results/Findings: No active bleed Estimated blood loss (cc): 5 Complications: None; Tolerated procedure well Post Procedure Treatment Plan: May use HD line for dialysis Specimen: None
[2018-03-23] MEDS: EPINEPHrine 1 MG in D5% in Water 250 ML IVC SCH (16:46)
[2018-03-23] MEDS: FentaNYL (PF) 1,000 MCG in 0.9 % Sodium Chloride 80 ML IVC SCH (16:47)
[2018-03-23 19:04] LABS: Eosinophils % 0.1 %; Mean Corpuscular Hemoglobin 30.7 pg (28.0-33.3)
[2018-03-23 19:06] LABS: Basophils # 0.1 K/mcL (0.0-0.2); Basophils % 0.3 %; Hematocrit 35.2 % (35.3-44.9); Immature Granulocytes % 2.2 % (0-4); Immature Platelets 9.2 % (1.1-6.1); Lymphocytes # 0.9 K/mcL (0.6-4.6); Lymphocytes % 5.6 %; Mean Corpuscular HGB Conc 34.1 g/dL (31.6-35.5); Mean Platelet Volume 12.5 fL (9.4-12.4); Monocytes % 9.8 %; Nucleated Red Blood Cells 0.8 /100 WBC (0); Red Blood Count 3.91 M/mcL (3.82-4.97); Red Cell Distribution Width 17.4 % (11.5-14.5)
[2018-03-23 19:08] LABS: Monocytes # 1.6 K/mcL (0.0-1.3); Platelet Count 69 K/mcL (140-400)
[2018-03-23 19:11] LABS: INR 1.2; Prothrombin Time 13.5 Seconds (9.4-12.1)
[2018-03-23 19:35] LABS: Activated Partial Thrombo Time 43.4 Seconds (26.0-36.0)
[2018-03-23 19:36] LABS: BUN/Creatinine Ratio 30 (6-26); Blood Urea Nitrogen 30 mg/dL (8-23); Calcium 6.6 mg/dL (8.6-10.3); Carbon Dioxide 16 mEq/L (23-29); Chloride 114 mEq/L (98-107); Glucose 62 mg/dL (70-105); Osmolality,Calculated 300 (280-300); Phosphorous 3.2 mg/dL (2.7-4.5); Sodium 143 mEq/L (136-145); eGFR For Non-African Americans 54 (> 60)
[2018-03-23] MEDS ORDERED: Potassium Chloride Elixir 20 MEQ/15 ML UDC PO ONE ×2 (19:43→19:47)
[2018-03-23] MEDS: Chlorhexidine Rinse 15 ML MOUTHWASH MM SCH (19:49)
[2018-03-23] MEDS: Cefepime HCl 2,000 MG in Water for inj. (sterile) 20 ML 20 ML IVP SCH (19:58)
[2018-03-23 20:13] LABS: ABG Ionized Calcium 1.01 mmol/L (1.15-1.35)
[2018-03-23 21:22] LABS: ABG Base Excess -8 mEq/L (-2 to 3); ABG HCO3 16 mEq/L (21-27); ABG Oxygen Saturation 100 % (95-98); ABG PCO2 27 mmHg (35-45); ABG PH 7.37 pH Units (7.32-7.45); ABG PO2 170 mmHg (85-104); ABG TCO2 17 mEq/L (20-26); Blood Gas Modality PRVC; Blood Gas PEEP 5 cm H2O; Blood Gas Respiration Rate 16; Blood Gas VT 380 cc
[2018-03-24] MEDS: Vasopressin 40 UNIT in D5% in Water 100 ML IV SCH ×2 (01:12→18:51)
[2018-03-24] MEDS: Artificial Tears SOLN 15 ML BOTTLE BOTH EYES SCH ×6 (03:02→23:14)
[2018-03-24 03:09] LABS: Immature Granulocytes % 1.9 % (0-4); Monocytes % 8.3 %
[2018-03-24 03:11] LABS: Basophils # 0.1 K/mcL (0.0-0.2); Basophils % 0.4 %; Eosinophils % 0.1 %; Hematocrit 31.8 % (35.3-44.9); Hemoglobin 11.1 g/dL (11.5-15.4); Lymphocytes # 0.8 K/mcL (0.6-4.6); Lymphocytes % 5.8 %; Mean Corpuscular HGB Conc 34.9 g/dL (31.6-35.5); Mean Corpuscular Hemoglobin 30.3 pg (28.0-33.3); Mean Corpuscular Volume 86.9 fL (83.0-100.0); Mean Platelet Volume 13.1 fL (9.4-12.4); Monocytes # 1.1 K/mcL (0.0-1.3); Neutrophils # 11.2 K/mcL (1.6-8.9); Red Blood Count 3.66 M/mcL (3.82-4.97); Red Cell Distribution Width 17.9 % (11.5-14.5); Segmented Neutrophils % 83.5 %
[2018-03-24 03:12] LABS: Platelet Count 57 K/mcL (140-400)
[2018-03-24 03:22] LABS: INR 1.3; Prothrombin Time 14.2 Seconds (9.4-12.1)
[2018-03-24 03:24] LABS: Activated Partial Thrombo Time 32.6 Seconds (26.0-36.0)
[2018-03-24 03:30] LABS: Alanine Aminotransferase 18 Units/L (7-52); Albumin 2.5 g/dL (3.5-5.7); Albumin/Globulin Ratio 2.1 (1.1-2.2); Alkaline Phosphatase 38 Units/L (34-104); Aspartate Amino Transferase 18 Units/L (13-39); BUN/Creatinine Ratio 28 (6-26); Bilirubin,Total 1.1 mg/dL (0.3-1.0); Blood Urea Nitrogen 29 mg/dL (8-23); Calcium 7.4 mg/dL (8.6-10.3); Carbon Dioxide 15 mEq/L (23-29); Chloride 114 mEq/L (98-107); Globulin 1.2 g/dL (2.4-3.5); Glucose 141 mg/dL (70-105); Osmolality,Calculated 298 (280-300); Phosphorous 2.8 mg/dL (2.7-4.5); Potassium 4.2 mEq/L (3.5-5.1); Sodium 140 mEq/L (136-145); Total Protein 3.7 g/dL (6.4-8.9); eGFR For Non-African Americans 53 (> 60)
[2018-03-24 04:47] LABS: ABG Base Excess -6 mEq/L (-2 to 3); ABG HCO3 17 mEq/L (21-27); ABG Oxygen Saturation 99 % (95-98); ABG PCO2 24 mmHg (35-45); ABG PH 7.46 pH Units (7.32-7.45); ABG PO2 137 mmHg (85-104); ABG TCO2 18 mEq/L (20-26); Blood Gas Modality PRVC; Blood Gas PEEP 5 cm H2O; Blood Gas Respiration Rate 16; Blood Gas VT 380 cc
[2018-03-24] MEDS: Pantoprazole 40 MG VIAL IVP SCH ×2 (05:19→16:54)
[2018-03-24] MEDS: Levothyroxine Sodium 100 MCG VIAL IVP SCH (05:19)
--- NOTE | 2018-03-24 07:10 | Pulmonology Progress Note ---
Addendum entered and electronically signed by Ena Saldivar 03/24/18 14:11: Original Note: <Ena Saldivar - Last Filed: 03/24/18 08:43> Date of Encounter: 03/24/18 Time of Encounter: 07:10 Assessment and Plan (1) Hemorrhagic shock Current Visit: Yes Status: Acute Admitted from shelter due to concerns for hypotension and decreased alertness BP on admission 99/48 Afebrile, tachycardic with HR 104 on admission, WBC 9.6, RR normal Do not suspect sepsis at this time, as there is no clear source of infection Pt was initially started on Heparin drip with elevated troponins Hgb 03/23 was 8.1 Heparin drip was subsequently stopped 3 units of pRBCs and 2 units cryo transfused in total Pt remains hypotensive on Levophed Start Vasopressin Arterial line place for hemodynamic monitoring Continue to titrate pressors to maintain MAP>65 Monitor H&H and transfuse as needed Repeat CT head, chest, abdomen, and pelvis to evaluate for possible sources of bleeding found a large hematoma in her left thigh, IR tried to embolize but there was no bleed at time of procedure 03/24 - morning labs show a stable H&H and coags, platelets 57 - will transfuse one unit platelets Repeat CBC and coags at 0800 show Concern for septic shock arose and ID has been consulted (2) Metabolic acidosis Current Visit: Yes Status: Acute Non-anion gap metabolic acidosis labs from this morning Received 4 amps of Sodium Bicarb Initiated Bicarb drip Unable to adequately compensate from respiratory standpoint - elected to intubate pt Serial ABGs Continue to monitor 03/24 - morning ABG showed mild alkalosis at 7.46, bicarb has been stopped at this point Will continue to monitor (3) Anuria Current Visit: Yes Status: Acute Pt has had 11L of fluid in with minimal output since admission Pt had 100mL UOP overnight and 30mL by 8am Nephro consulted yesterday and a temporary dialysis catheter was placed Will start CRRT today (4) Leukocytosis Current Visit: Yes Status: Acute Head CT negative for acute abnormality. Moderate to large right mastoid effusion, suggestive of chronic sinusitis Follow up CT sinuses revealed opacification of the right ethmoid air cells. infection vs inflammation CXR revealed no acute abnormalities CT abdomen/pelvis: - diffuse colonic wall thickening suggestive of pancolitis - distended gallbladder with sludge vs stones. - bibasilar atelectasis - trace ascites UA was contaminated with many squamous epithelial cells. No bacteria or leukocyte esterase present. Received 1 day of Aztreonam 03/22 Continue Flagyl, Vanc and Cefepime day 3 ID has been consulted to look for possible source of infection as pt is still in shock despite more than adequate fluid resuscitation Qualifiers: Leukocytosis type: bandemia Qualified Code(s): D72.825 - Bandemia (5) Elevated troponin Current Visit: Yes Status: Acute Initial troponin in emergency department 0.05 -> 0.17 -> 0.19 EKG showed sinus tachycardia with inverted T waves in leads I, AVL Pt denied any chest pain, shortness of breath, or diaphoresis Echo results as follows: - LVEF 65-70% - Normal LV chamber size, wall thickness, and systolic function - Mild LV diastolic dysfunction - mild aortic and tricuspic regurg - No pulmonary HTN - IVC normal dimensions and inspiratory collapse Cardio is on board - ACS unlikely. More likely demand ischemia related to hypotension Initially started on Heparin drip but due to decrease in Hgb from 11-->8 from 03/22 to 03/23 the heparin drip was stopped (6) Schizoaffective disorder Current Visit: Yes Status: Chronic Chronic Qualifiers: Schizoaffective disorder type: unspecified Qualified Code(s): F25.9 - Sc hizoaffective disorder, unspecified (7) Hypothyroidism Current Visit: Yes Status: Chronic TSH low at 0.169 normal T4 Mildly decreased T3 at 2 Will continue home dose synthroid Qualifiers: Hypothyroidism type: unspecified Qualified Code(s): E03.9 - Hypothyroidism, unspecified (8) DVT prophylaxis Current Visit: Yes Status: Acute EPCDs Hold heparin secondary to acute bleed on 03/23 Subjective Principal diagnosis: Hypotension Interval history: Pt has stabilized overnight but is still in critical condition. No longer acidotic, anemic or coagulopathic due to the blood products given today. Alert and able to follow commands. Will continue to monitor labs closely throughout the day and attempt to decrease pressors as BP stabilizes. Midodrine has been ordered to help DC pressor needs. Will transfuse platelets today and start CRRT. ID has been consulted to look for possible source of infection for tentative septic shock. Objective PUL Vital signs: Last Vital Signs Temp 97.3 F L 03/24/18 03:01 Pulse 101 03/24/18 06:00 Resp 18 03/24/18 06:00 BP 104/49 03/24/18 06:00 Pulse Ox 100 03/24/18 06:00 General appearance: no acute distress, alert Eyes: nonicteric ENT: oropharynx dry Neck: supple Effort: normal Auscultation: bilateral: clear Cardiovascular: other (tachycardic) Gastrointestinal: soft, non-tender, non-distended Integumentary: normal Extremities: no cyanosis, pulses normal, edema (mild edema of B/L LE) pupils equal and round, other (able to follow commands) Ventilator Settings Ventilator Settings: Ventilator Settings, Last 8 Hours Ventilator Tidal Volume 380 Setting Ventilator Tidal Volume 380 Setting Ventilator Tidal Volume 380 Setting Ventilator Tidal Volume 380 Setting Ventilator Tidal Volume 380 Setting Ventilator Tidal Volume 380 Setting Ventilator Tidal Volume 380 Setting Ventilator Tidal Volume 380 Setting Ventilator Tidal Volume 380 Setting Ventilator Tidal Volume 380 Setting Ventilator Tidal Volume 380 Setting Ventilator Tidal Volume 380 Setting Ventilator Respiratory Rate 16 Setting Ventilator Respiratory Rate 16 Setting Ventilator Respiratory Rate 16 Setting Ventilator Respiratory Rate 16 Setting Ventilator Respiratory Rate 16 Setting Ventilator Respiratory Rate 16 Setting Ventilator Respiratory Rate 16 Setting Ventilator Respiratory Rate 16 Setting Ventilator Respiratory Rate 16 Setting Ventilator Respiratory Rate 16 Setting Ventilator Respiratory Rate 16 Setting Ventilator Respiratory Rate 16 Setting Actual Respiratory Rate 16 Actual Respiratory Rate 17 Actual Respiratory Rate 16 Actual Respiratory Rate 16 Actual Respiratory Rate 16 Actual Respiratory Rate 18 Actual Respiratory Rate 18 Actual Respiratory Rate 16 Actual Respiratory Rate 18 Actual Respiratory Rate 18 Actual Respiratory Rate 22 Positive End Expiratory 5 Pressure Positive End Expiratory 5 Pressure Positive End Expiratory 5 Pressure Positive End Expiratory 5 Pressure Positive End Expiratory 5 Pressure Positive End Expiratory 5 Pressure Positive End Expiratory 5 Pressure Positive End Expiratory 5 Pressure Positive End Expiratory 5 Pressure Positive End Expiratory 5 Pressure Positive End Expiratory 5 Pressure Positive End Expiratory 5 Pressure Peak Inspiratory Airway 19 Pressure Peak Inspiratory Airway 18 Pressure Peak Inspiratory Airway 23 Pressure Peak Inspiratory Airway 19 Pressure Peak Inspiratory Airway 19 Pressure Peak Inspiratory Airway 18 Pressure Peak Inspiratory Airway 17 Pressure Peak Inspiratory Airway 19 Pressure Peak Inspiratory Airway 17 Pressure Peak Inspiratory Airway 17 Pressure Peak Inspiratory Airway 18 Pressure Results - Laboratory Findings CBC and BMP: 03/24/18 03:00 03/24/18 03:00 ABG ABG pH 7.46 pH Units (7.32-7.45) H 03/24/18 04:44 ABG pCO2 24 mmHg (35-45) L 03/24/18 04:44 ABG pO2 137 mmHg (85-104) H 03/24/18 04:44 ABG O2 Saturation 99 % (95-98) H 03/24/18 04:44 PT/INR, D-dimer PT 14.2 Seconds (9.4-12.1) H 03/24/18 03:00 Abnormal lab findings: Abnormal lab results WBC 13.4 K/mcL (4.3-11.1) H 03/24/18 03:00 RBC 3.66 M/mcL (3.82-4.97) L 03/24/18 03:00 Hgb 11.1 g/dL (11.5-15.4) L 03/24/18 03:00 Hct 31.8 % (35.3-44.9) L 03/24/18 03:00 RDW 17.9 % (11.5-14.5) H 03/24/18 03:00 Plt Count 57 K/mcL (140-400) L 03/24/18 03:00 MPV 13.1 fL (9.4-12.4) H 03/24/18 03:00 Band Neutrophils % 16.0 % (0-4) H 03/23/18 11:09 Neutrophils # 11.2 K/mcL (1.6-8.9) H 03/24/18 03:00 Nucleated RBCs/100 WBC 1.0 /100 WBC (0) H 03/24/18 03:00 Platelet Estimate Decreased (Normal) L 03/23/18 13:25 Immature Plt Fraction 10.0 % (1.1-6.1) H 03/24/18 03:00 Anisocytosis 1+ (Not Present) A 03/23/18 13:25 Microcytosis Present (Not Present) A 03/23/18 13:25 Macrocytosis Present (Not Present) A 03/23/18 13:25 PT 14.2 Seconds (9.4-12.1) H 03/24/18 03:00 Heparin Anti-Xa, Unfract 0.81 IU/mL (0.30-0.70) H 03/23/18 03:06 ABG pH 7.46 pH Units (7.32-7.45) H 03/24/18 04:44 ABG pCO2 24 mmHg (35-45) L 03/24/18 04:44 ABG pO2 137 mmHg (85-104) H 03/24/18 04:44 ABG HCO3 17 mEq/L (21-27) L 03/24/18 04:44 ABG Total CO2 18 mEq/L (20-26) L 03/24/18 04:44 ABG O2 Saturation 99 % (95-98) H 03/24/18 04:44 ABG Base Excess -6 mEq/L (-2 to 3) L 03/24/18 04:44 Chloride 114 mEq/L (98-107) H 03/24/18 03:00 Carbon Dioxide 15 mEq/L (23-29) L 03/24/18 03:00 BUN 29 mg/dL (8-23) H 03/24/18 03:00 Est GFR (Non-Af Amer) 53 (> 60) L 03/24/18 03:00 BUN/Creatinine Ratio 28 (6-26) H 03/24/18 03:00 Glucose 141 mg/dL (70-105) H 03/24/18 03:00 Lactic Acid 2.5 mmol/L (0.5-2.2) H 03/24/18 03:00 Calcium 7.4 mg/dL (8.6-10.3) L 03/24/18 03:00 Venous Ioniz Calcium 0.90 mmol/L (1.15-1.35) L 03/23/18 10:49 Total Bilirubin 1.1 mg/dL (0.3-1.0) H 03/24/18 03:00 Lactate Dehydrogenase 129 Units/L (140-271) L 03/23/18 07:51 Troponin I 0.19 ng/mL (< 0.04) H* 03/22/18 08:05 Serum Total Protein 3.7 g/dL (6.4-8.9) L 03/24/18 03:00 Albumin 2.5 g/dL (3.5-5.7) L 03/24/18 03:00 Globulin 1.2 g/dL (2.4-3.5) L 03/24/18 03:00 TSH 0.169 mcIU/mL (0.340-5.600) L 03/22/18 08:05 Free T3 2.00 pg/mL (2.50-3.90) L 03/22/18 08:05 Arterial Blood Ionized Calcium 1.01 mmol/L (1.15-1.35) L 03/23/18 20:08 Urine Ketones Trace mg/dL (Negative) H 03/21/18 22:17 Urine Bilirubin Large (Negative) H 03/21/18 22:17 Ur Squamous Epith Cells Many per lpf (None-Few) H 03/21/18 22:17 - Microbiology Findings Microbiology Findings: Microbiology, Last 48 Hours 03/23/18 11:30 Influenza Types A,B Antigen - Final Nasopharyngeal - Clinical Findings Intake & Output: Intake & Output 03/23/18 03/23/18 03/24/18 15:59 23:59 07:59 Intake Total 1270 / 1270 1936 / 1936 231 / 231 Output Total 85 / 85 70 / 70 Balance 1245 / 1245 1851 / 1851 161 / 161 Weight 72 kg Consult Discharge Plan - Plan Referrals: NONE,PCP [Primary Care Provider] - <Pedro Rodriguez - Last Filed: 03/24/18 09:08> Date of Encounter: 03/24/18 Objective PUL Vital signs: Last Vital Signs Temp 99.8 F H 03/24/18 08:15 Pulse 114 03/24/18 07:00 Resp 18 03/24/18 07:23 BP 103/52 03/24/18 07:00 Pulse Ox 99 03/24/18 07:23 Ventilator Settings Ventilator Settings: Ventilator Settings, Last 8 Hours Ventilator Tidal Volume 380 Setting Ventilator Tidal Volume 380 Setting Ventilator Tidal Volume 380 Setting Ventilator Tidal Volume 380 Setting Ventilator Tidal Volume 380 Setting Ventilator Tidal Volume 380 Setting Ventilator Tidal Volume 380 Setting Ventilator Tidal Volume 380 Setting Ventilator Tidal Volume 380 Setting Ventilator Tidal Volume 380 Setting Ventilator Tidal Volume 380 Setting Ventilator Respiratory Rate 16 Setting Ventilator Respiratory Rate 16 Setting Ventilator Respiratory Rate 16 Setting Ventilator Respiratory Rate 16 Setting Ventilator Respiratory Rate 16 Setting Ventilator Respiratory Rate 16 Setting Ventilator Respiratory Rate 16 Setting Ventilator Respiratory Rate 16 Setting Ventilator Respiratory Rate 16 Setting Ventilator Respiratory Rate 16 Setting Ventilator Respiratory Rate 16 Setting Actual Respiratory Rate 18 Actual Respiratory Rate 17 Actual Respiratory Rate 16 Actual Respiratory Rate 17 Actual Respiratory Rate 16 Actual Respiratory Rate 16 Actual Respiratory Rate 16 Actual Respiratory Rate 18 Actual Respiratory Rate 18 Actual Respiratory Rate 16 Positive End Expiratory 5 Pressure Positive End Expiratory 5 Pressure Positive End Expiratory 5 Pressure Positive End Expiratory 5 Pressure Positive End Expiratory 5 Pressure Positive End Expiratory 5 Pressure Positive End Expiratory 5 Pressure Positive End Expiratory 5 Pressure Positive End Expiratory 5 Pressure Positive End Expiratory 5 Pressure Positive End Expiratory 5 Pressure Peak Inspiratory Airway 18 Pressure Peak Inspiratory Airway 19 Pressure Peak Inspiratory Airway 18 Pressure Peak Inspiratory Airway 23 Pressure Peak Inspiratory Airway 19 Pressure Peak Inspiratory Airway 19 Pressure Peak Inspiratory Airway 18 Pressure Peak Inspiratory Airway 17 Pressure Peak Inspiratory Airway 19 Pressure Results - Laboratory Findings CBC and BMP: 03/24/18 07:21 03/24/18 03:00 ABG ABG pH 7.46 pH Units (7.32-7.45) H 03/24/18 04:44 ABG pCO2 24 mmHg (35-45) L 03/24/18 04:44 ABG pO2 137 mmHg (85-104) H 03/24/18 04:44 ABG O2 Saturation 99 % (95-98) H 03/24/18 04:44 PT/INR, D-dimer PT 15.0 Seconds (9.4-12.1) H 03/24/18 07:21 Abnormal lab findings: Abnormal lab results WBC 13.2 K/mcL (4.3-11.1) H 03/24/18 07:21 RBC 3.69 M/mcL (3.82-4.97) L 03/24/18 07:21 Hgb 11.3 g/dL (11.5-15.4) L 03/24/18 07:21 Hct 32.2 % (35.3-44.9) L 03/24/18 07:21 RDW 18.4 % (11.5-14.5) H 03/24/18 07:21 Plt Count 59 K/mcL (140-400) L 03/24/18 07:21 Band Neutrophils % 16.0 % (0-4) H 03/23/18 11: Neutrophils # 11.2 K/mcL (1.6-8.9) H 03/24/18 07:21 Nucleated RBCs/100 WBC 1.3 /100 WBC (0) H 03/24/18 07:21 Platelet Estimate Decreased (Normal) L 03/23/18 13:25 Immature Plt Fraction 11.9 % (1.1-6.1) H 03/24/18 07:21 Anisocytosis 1+ (Not Present) A 03/23/18 13:25 Microcytosis Present (Not Present) A 03/23/18 13:25 Macrocytosis Present (Not Present) A 03/23/18 13:25 PT 15.0 Seconds (9.4-12.1) H 03/24/18 07:21 Heparin Anti-Xa, Unfract 0.81 IU/mL (0.30-0.70) H 03/23/18 03:06 ABG pH 7.46 pH Units (7.32-7.45) H 03/24/18 04:44 ABG pCO2 24 mmHg (35-45) L 03/24/18 04:44 ABG pO2 137 mmHg (85-104) H 03/24/18 04:44 ABG HCO3 17 mEq/L (21-27) L 03/24/18 04:44 ABG Total CO2 18 mEq/L (20-26) L 03/24/18 04:44 ABG O2 Saturation 99 % (95-98) H 03/24/18 04:44 ABG Base Excess -6 mEq/L (-2 to 3) L 03/24/18 04:44 Chloride 114 mEq/L (98-107) H 03/24/18 03:00 Carbon Dioxide 15 mEq/L (23-29) L 03/24/18 03:00 BUN 29 mg/dL (8-23) H 03/24/18 03:00 Est GFR (Non-Af Amer) 53 (> 60) L 03/24/18 03:00 BUN/Creatinine Ratio 28 (6-26) H 03/24/18 03:00 Glucose 141 mg/dL (70-105) H 03/24/18 03:00 Lactic Acid 2.5 mmol/L (0.5-2.2) H 03/24/18 03:00 Calcium 7.4 mg/dL (8.6-10.3) L 03/24/18 03:00 Venous Ioniz Calcium 0.90 mmol/L (1.15-1.35) L 03/23/18 10:49 Total Bilirubin 1.1 mg/dL (0.3-1.0) H 03/24/18 03:00 Lactate Dehydrogenase 129 Units/L (140-271) L 03/23/18 07:51 Troponin I 0.19 ng/mL (< 0.04) H* 03/22/18 08:05 Serum Total Protein 3.7 g/dL (6.4-8.9) L 03/24/18 03:00 Albumin 2.5 g/dL (3.5-5.7) L 03/24/18 03:00 Globulin 1.2 g/dL (2.4-3.5) L 03/24/18 03:00 TSH 0.169 mcIU/mL (0.340-5.600) L 03/22/18 08:05 Free T3 2.00 pg/mL (2.50-3.90) L 03/22/18 08:05 Arterial Blood Ionized Calcium 1.01 mmol/L (1.15-1.35) L 03/23/18 20:08 Urine Ketones Trace mg/dL (Negative) H 03/21/18 22:17 Urine Bilirubin Large (Negative) H 03/21/18 22:17 Ur Squamous Epith Cells Many per lpf (None-Few) H 03/21/18 22:17 - Microbiology Findings Microbiology Findings: Microbiology, Last 48 Hours 03/23/18 11:30 Influenza Types A,B Antigen - Final Nasopharyngeal - Clinical Findings Intake & Output: Intake & Output 03/23/18 03/24/18 03/24/18 23:59 07:59 15:59 Intake Total 1936 / 1936 489 / 489 Output Total 85 / 85 70 / 70 30 / 30 Balance 1851 / 1851 419 / 419 -30 / -30 Weight 72 kg - Attending Attestation Attending Attestation I saw and evaluated this patient and my medical decision-making was reviewed with the Resident Physician. I agree with the documented findings, disposition and treatment plan as described except to the extent set forth below. We independently had [id number] contact with the patient I spent 40 minutes of Critical Care time with this patient. It involved decision making of high complexity to assess, manipulate, and support vital organ system failure and/or to prevent further life threatening deterioration of the patient's condition. The time involved in the performance of separately reportable procedures was not counted toward critical care time. Patient seen and examined at bedside Labs, radiology, chart personally reviewed. Management was reviewed during multidisciplinary critical care rounds. ACCOUNTS PAYABLE TECHNICIAN: Patient has with altered mental status drowsy but arousable can tell where she is at she is AO X 1 is worse than her baseline looks like encephalopathy secondary to hypertension no focal neurological deficit CT head did not show any acute findings 03/23 patient is more alert than yesterday following commands no acute focal danielle rological deficit low concern for stroke since patient has this chronic sinusitis concern for meningitis will increase the antibiotic dose to meningitis coverage cannot do an lumbar puncture because of her underlying coagulopathy and she was recently on heparin for ACS 03/24 patient is spontaneously opening her eyes more alert this the best I have seen during her hospital stay. Pulm: Patient has acceptable V/Q mismatch with acceptable oxygenation and ventilation no evidence of pneumonia patient have some possible chronic sinus infection will get CT sinuses to look for any collection that can be drained. 03/23 patient has acceptable oxygenation and ventilation patient has worsening metabolic acidosis which she cannot respiratory compensate so I decided to intubate and mechanically ventilate her and to correct metabolic acidosis . 03/24 patient has acceptable oxygenation and ventilation minimal ventilatory support patient still has unresolved metabolic acidosis due to her acute kidney injury. Cards: Patient is in shock most likely sepsis versus cardiogenic complicated by some volume depletion to keep the vasopressors and the map around 65 will wait for transthoracic echocardiogram will trend troponins we will look for other sources of sepsis. 03/23 there is no evidence of cardiac in shock and not convinced about septic shock either with his drop in hemoglobin with patient on heparin for ACS and concerned about more of hemorrhagic shock stopped the heparin when I came in for my shift . I sent her for CT chest abdomen pelvis and thigh for dissection pro tocol found to have a large intramuscular hematoma in her left thigh with a bleeding vessel I spoke with interventional radiologist will try to call coil the bleeding vessel. I went over echocardiogram personally with a non-lamp shade assembler which showed hyperdynamic left ventricle with good right ventricle function with some inspiratory collapse of IVC more pointing towards hypokalemia 03/24 after the yesterday events of discovering the left-sided intramuscular hematoma in the thigh mostly in the abductor muscle region most likely is due to hemorrhagic shock looks like the bleeding is stopped patient is still hypotensive now I am concerned for any septic shock in the background we will consult infectious disease for further input. As there is no obvious source of infection except for the chronic sinusitis FEN-GI: We will keep her nothing by mouth no evidence of GI bleed the bleeding is more from the intramuscular hematoma Renal: Patient has poor urine output in the range of Anuria nephrology consult that patient has severe metabolic acidosis might need dialysis. ID: To look for other source for sepsis due to CT sinuses and CT abdomen and pelvis without any ACCOUNTS PAYABLE TECHNICIAN infection to continue broad-spectrum antibiotics to follow cultures. 03/23 no obvious source of sepsis will cover with broad-spectrum antibiotics will do meningitis coverage. If after correcting the hyponatremia and the bleeding if still she is in shock will consult infectious disease. 03/24 after correcting the hemorrhagic shock patient still on vasopressors we will try to give more colloids will consult ID to have their input to look for any other source for infection. Heme/Onc: Patient looks like DIC but there is no obvious reason for this DIC unless there is any septic focus to correct coagulopathy. To replete the blood loss anemia with PRBC. Low concern for TTP. EPCD . Heparin stopped 03/24 patient coagulopathy corrected and patient has some thrombocytopenia will keep the platelets about 80,000 as patient might have some slow venous oozing Endo: Glucose Monitored Integ/MSK: Skin Care per routine ICU Nursing Protocol to prevent ulcers. Lines: All lines examined without evidence of infection : Dispo: Critically ill , Family updated CODE:Full Code
[2018-03-24] MEDS: MetroNIDAZOLE 500 MG/100 ML 500 MG/100 ML BAG IVPB SCH ×3 (08:26→23:24)
[2018-03-24] MEDS: Chlorhexidine Rinse 15 ML MOUTHWASH MM SCH ×2 (08:26→19:08)
[2018-03-24] MEDS: Cefepime HCl 2,000 MG in Water for inj. (sterile) 20 ML 20 ML IVP SCH ×2 (08:27→20:10)
[2018-03-24] MEDS: Norepinephrine 8 MG in D5% in Water 250 ML IVC SCH ×2 (08:27→18:50)
[2018-03-24 08:33] LABS: Mean Corpuscular Volume 87.3 fL (83.0-100.0)
[2018-03-24] MEDS: Insulin LISPRO 300 UNITS/3 ML VIAL SQ SCH ×4 (08:33→19:27)
[2018-03-24] MEDS: Nystatin OINT 15 GM TUBE TP SCH ×4 (08:33→19:09)
[2018-03-24 08:35] LABS: Basophils % 0.2 %; Hematocrit 32.2 % (35.3-44.9); Hemoglobin 11.3 g/dL (11.5-15.4); Immature Granulocytes % 1.7 % (0-4); Immature Platelets 11.9 % (1.1-6.1); Lymphocytes # 0.7 K/mcL (0.6-4.6); Lymphocytes % 5.4 %; Mean Corpuscular HGB Conc 35.1 g/dL (31.6-35.5); Mean Corpuscular Hemoglobin 30.6 pg (28.0-33.3); Monocytes # 1.1 K/mcL (0.0-1.3); Monocytes % 8.2 %; Neutrophils # 11.2 K/mcL (1.6-8.9); Nucleated Red Blood Cells 1.3 /100 WBC (0); Red Blood Count 3.69 M/mcL (3.82-4.97); Red Cell Distribution Width 18.4 % (11.5-14.5); Segmented Neutrophils % 84.5 %
[2018-03-24 08:40] LABS: INR 1.3
[2018-03-24 08:42] LABS: Activated Partial Thrombo Time 34.4 Seconds (26.0-36.0)
[2018-03-24 08:43] LABS: Platelet Count 59 K/mcL (140-400)
[2018-03-24] MEDS: EPINEPHrine 1 MG in D5% in Water 250 ML IVC SCH (11:16)
--- NOTE | 2018-03-24 13:39 | Nephrology Progress Note ---
Date of Encounter: 03/24/18 Time of Encounter: 10:45 - Assessment and Plan (1) Decreased urination Current Visit: Yes Status: Acute She has been noted to have decreased urinary output. This is likely secondary to shock that is still he worked up as either septic or cardiogenic in setting of volume depletion. She has no prior history of chronic disease and there is no baseline serum creatinine GFR upon examination of records. -I&O: 5735/200 poor urine output -creatinine 1.04 -GFR 53 -temporary hemodialysis catheter in place plan: -will start Katia today (CRRT) -the decreased urination may be due to the patient still having a fluid deficit since since there is still not an expected rise in the creatinine. However she has decreased muscle mass and her normal creatinine may be much lower than the standard normal so her current creatinine level may actually be an BREE. Thus will order a 24 hour urine creatinine clearance to better quantify is she has an BREE. -Continue renal protective strategies such as avoid nephrotoxic and renal dose medications -continue Luna catheterization for strict I&O -will continue to monitor serum creatinine (2) Anemia Current Visit: Yes Status: Acute Anemia. CT imaging demonstrated hematoma and left thigh -hemoglobin 11.3, yesterday was 6.7 -transfused 3 units of packed red blood cells, 1 platelets, 2 cryoprecipitate -abdominal CT demonstrating bilobed hematoma in left thigh adductor muscle measuring 11.1 cm x 5.9 cm Plan: -continue to monitor and transfuse as needed Qualifiers: Chronic kidney disease stage: unspecified stage Qualified Code(s): N18.9 - Chronic kidney disease, unspecified; D63.1 - Anemia in chronic kidney disease (3) Hemorrhagic shock Current Visit: Yes Status: Acute Shock that is most likely sepsis versus cardiogenic. Hypotension despite IV fluid bolus. Requiring 2 vasopressor suppressor support. Elevated WBC. -transfused 3 units of packed red blood cells, 1 platelets, 2 cryoprecipitate -Management per critical care team (4) Hypocalcemia Current Visit: Yes Status: Acute Hypocalcemia -calcium 7.4 -ionized calcium 0.9 -continue to supplement and monitor (5) Hypomagnesemia Current Visit: Yes Status: Acute Subjective Principal diagnosis: Hypotension Interval history: Patient seen and examined at bedside. She is intubated on mechanical ventilation however she is awake. She has a temporary HD line in place. She is on 2 vasopressors. Objective - Vital Signs Vital signs: Vital Signs Temp Pulse Resp BP Pulse Ox 03/24/18 12:00 109 20 105/49 99 03/24/18 11:15 19 98 03/24/18 11:00 98.7 F 109 19 107/49 98 03/24/18 10:00 110 19 105/52 98 03/24/18 09:00 106 19 101/50 99 03/24/18 08:15 99.8 F H 03/24/18 08:00 101 16 89/47 99 03/24/18 07:23 18 99 03/24/18 07:00 114 17 103/52 99 03/24/18 06:00 101 18 104/49 100 03/24/18 05:55 17 105/50 99 03/24/18 05:00 86 19 119/55 100 03/24/18 04:01 79 16 102/47 100 03/24/18 03:32 16 107/48 100 03/24/18 03:01 97.3 F L 90 16 102/52 100 03/24/18 02:00 78 16 102/52 100 03/24/18 01:18 16 104/53 100 03/24/18 01:00 97 17 114/58 100 03/24/18 00:01 97 21 100/52 100 03/23/18 23:49 22 99/53 100 03/23/18 23:00 96.8 F L 98 16 103/54 100 03/23/18 22:00 96 16 100/51 100 03/23/18 21:42 17 110/57 100 03/23/18 21:00 96 16 100/51 100 03/23/18 20:08 111 16 110/55 100 03/23/18 19:50 16 109/54 100 03/23/18 19:24 96.8 F L 96 16 110/55 100 03/23/18 19:06 96.8 F L 03/23/18 18:26 96.4 F L 92 16 138/58 100 03/23/18 18:05 16 109/47 100 03/23/18 18:00 92 16 138/58 100 03/23/18 17:00 96 17 128/52 100 03/23/18 16:43 96.2 F L 98 16 109/47 100 03/23/18 16:39 16 114/49 100 03/23/18 16:28 95.9 F L 97 19 115/47 100 03/23/18 16:23 96.0 F L 99 16 107/45 100 03/23/18 16:13 96.0 F L 95 17 106/43 100 03/23/18 16:00 104 19 105/43 100 03/23/18 15:04 110 136/63 100 03/23/18 15:00 96.2 F L 115 20 110/39 95 03/23/18 14:59 114 147/65 100 03/23/18 14:52 111 133/50 100 03/23/18 14:47 112 110/46 100 03/23/18 14:42 116 127/47 100 03/23/18 14:36 96.7 F L 110 21 125/51 100 03/23/18 14:15 96.6 F L 107 21 142/55 100 03/23/18 14:03 21 173/66 100 03/23/18 14:00 112 21 107/50 100 Intake and Output 03/23/18 03/24/18 03/24/18 23:59 07:59 15:59 Intake Total 1936 / 1936 489 / 489 120 / 120 Output Total 85 / 85 70 / 70 47 / 47 Balance 1851 / 1851 419 / 419 73 / 73 Intake: IV Fluids 1336 / 1336 489 / 489 120 / 120 Vasostrict 40 UNIT In Dextrose 131 / 131 5% 100 ML @ 0.03 UNIT/MIN 4.59 mls/hr IV .[id number] [facility] Rx#: [id number] Levophed 8 MG In Dextrose 5% 512 / 512 258 / 258 250 ML @ 3 MCG/MIN 5.81 mls/hr IVC CONT [facility] Rx#:[id number] Sodium Bicarbonate 150 MEQ In 100 / 100 Dextrose 5% 1,000 ML @ 50 mls/ hr IVC .Q23H [facility] Rx#:[id number] Maxipime 1,000 MG In Water for 10 / 10 inj. (sterile) 10 ML @ 300 mls/ hr IVP ONCE ONE Rx#:[id number] Maxipime 2,000 MG In Water for 20 / 20 20 / 20 inj. (sterile) 20 ML @ 300 mls/ hr IVP Q12H [facility] Rx#:[id number] Calcium Gluconate 2,000 MG In 0 240 / 240 .9 % Sodium Chloride 100 ML @ 220 mls/hr IVPB ONCE ONE Rx#: [id number] Magnesium Sulfate 2 GM In 0.9 % 104 / 104 Sodium Chloride 100 ML @ 104 mls/hr IVPB ONCE ONE Rx#: [id number] Flagyl Premix 500 MG/100 ML 500 100 / 100 100 / 100 100 / 100 mg In 100 ml @ 100 mls/hr IVPB Q8HR [facility] Rx#:[id number] Vancocin 1,000 MG In 0.9 % 250 / 250 Sodium Chloride 250 ML @ 166. 667 mls/hr IVPB Q24H [facility] Rx#: [id number] Blood Product 600 / 600 Rbcs Leuko Poor As-1 Unit 300 / 300 [id number] Rbcs Leuko Poor As-1 Unit 300 / 300 [id number] Output: Urine 30 / 30 Catheter 85 / 85 70 / 70 17 / 17 Other: Stool Size Small Stool Consistency soft Stool Color Green Weight 72 kg Blood Glucose* 123 - General Appearance Exam: Gen.: Vitals noted. Intubated on mechanical ventilation HEENT: oropharynx clear, Normocephalic, atraumatic Neck: Supple. No adenopathy. Cardiac: RRR, no murmur, +S1/S2, bilateral mild lower extremity edema Pulmonary: CTA bilaterally anteriorly, equal chest expansion Abdomen: soft, Bowel sounds noted MSK: ROM intact, no joint swelling noted Extremities: no cyanosis or clubbing Neuro: sedated on mechanical ventilation - Lab 03/24/18 07:21 03/24/18 03:00 Most recent lab results ABG pH 7.46 pH Units (7.32-7.45) H 03/24/18 04:44 ABG pCO2 24 mmHg (35-45) L 03/24/18 04:44 ABG pO2 137 mmHg (85-104) H 03/24/18 04:44 ABG HCO3 17 mEq/L (21-27) L 03/24/18 04:44 ABG O2 Saturation 99 % (95-98) H 03/24/18 04:44 Calcium 7.4 mg/dL (8.6-10.3) L 03/24/18 03:00 Phosphorus 2.8 mg/dL (2.7-4.5) 03/24/18 03:00 Magnesium 2.0 mg/dL (1.6-2.6) 03/24/18 03:00 Consult Discharge Plan - Plan Referrals: NONE,PCP [Primary Care Provider] -
[2018-03-24 14:46] LABS: Basophils % 0.2 %; Hemoglobin 10.9 g/dL (11.5-15.4); Immature Granulocytes % 1.8 % (0-4); Lymphocytes # 0.5 K/mcL (0.6-4.6); Lymphocytes % 4.3 %; Mean Corpuscular HGB Conc 35.2 g/dL (31.6-35.5); Mean Corpuscular Volume 88.1 fL (83.0-100.0); Mean Platelet Volume 13.6 fL (9.4-12.4); Monocytes # 0.7 K/mcL (0.0-1.3); Monocytes % 6.1 %; Neutrophils # 10.7 K/mcL (1.6-8.9); Nucleated Red Blood Cells 1.4 /100 WBC (0); Red Blood Count 3.52 M/mcL (3.82-4.97); Red Cell Distribution Width 18.6 % (11.5-14.5); Segmented Neutrophils % 87.6 %
[2018-03-24 14:47] LABS: Platelet Count 60 K/mcL (140-400)
[2018-03-24 14:57] LABS: INR 1.4; Prothrombin Time 15.5 Seconds (9.4-12.1)
--- NOTE | 2018-03-24 14:58 | Infectious Disease Consult ---
Date of Encounter: 03/24/18 Time of Encounter: 11:20 Assessment and Plan (1) Septic shock Status: Acute Assessment and plan: - On Admission, did not meet SIRS criteria with only tacycardia in low 100s - Throughout course of hospital stay, has had persistent tachycardia, leukocytosis with bandemia, tachypnea s/p intubation - Lactic acid initially 1.7, trended to 0.9/3.2/2.5/3.0 - Currently requiring vasopressors of levophed and vasopressin - Central line (right IJ) placed in ED. - Evidence of organ dysfunction including BREE, troponin leak, respiratory failure - Suspected source: unclear. Possibilities include CLABSI, colitis, cholecystitis, sinusitis, bacteremia - Causative organism: unknown - Alternatively, shock may be non infectious in etiology including cardiogenic, hemorrhagic - Blood cultures obtained in ED 03/21 x2 NG to date - UA did not demonstrate infection. Negative nitrates, negative LE, no WBC - Respiratory infectious panel negative - Flu swab negative - CXR on 03/21, 03/22, 03/23 did not show consolidation that would be suggestive of infection - Head CT 03/22 showed moderate chronic ischemic changes as well as moderate to large right mastoid effusion, sequelae of chronic maxillary sinusitis. - Sinus CT on 03/22 showed open fixation of many of the right ethmoid air cells which may correlated for infection or inflammation. - CT abd/pelvis on 03/22 showed diffuse apparent colonic wall thickening suggestive of pancolitis. Distended gallbladder with sludge versus small stones, no apparent thickening or inflammatory changes. Trace effusions with atelectasis, trace ascites. - CTA abd/pelvis 03/23 shows again bilobed hematoma in the left thigh measuring 11.1 x 5.9 cm. Findings suggestive of volume overload. Asymmetric stranding in the subcutaneous tissues of the left thigh. Mild gallbladder distention. - CT of the left lower extremity shows large 14.5 cm lobular dense fluid collection compatible with hematoma. - Echocardiogram on 03/22/18 shows an ejection fraction of 65-70% with mild diastolic dysfunction. Also noted were mild to moderate aortic regurgitation, mild mitral regurgitation -- I did discuss these findings personally with radiology. We discussed the colitis is possible for infection however is more likely a result of volume overload and third spacing edema. She reportedly has had 2 loose bowel movements. - Initially started on vancomycin and aztreonam on admission - Has been transitioned to cefepime, Flagyl, vancomycin. This is day #3 Plan - Clinically, this is difficult to determine the source of a possible infection. She is unable to provide a review of systems and her physical exam does not point towards obvious source. Radiology findings at this time are likely secondary to volume overload as well as hematoma as discussed elsewhere. - We will however, continue antibiotic coverage. - We will continue cefepime, Flagyl, vancomycin (day 3) - Continue vasopressor support - We will repeat blood cultures, 2 peripherally and 1 through central line to evaluate for CLABSI - Goal vancomycin of 15 - We will obtain GI panel to evaluate for GI possibilities including C. diffic ile - Obtain amylase, lipase to evaluate for pancreatitis - At this time, there is low suspicion for pulmonary etiology given negative respiratory infectious panel, multiple chest x-rays and CT scans. Do not feel atypical coverage is necessary at this point. Also low suspicion for urinary source or joint source or skin source. (2) Lactic acidosis Status: Acute Assessment and plan: As above for septic shock - Discussed with radiology, there is low suspicion for ischemic colitis at this time - Likely hypoperfusion however the etiology of this is unclear (3) Hemorrhagic shock Status: Suspected Assessment and plan: - Alternative etiology of shock is hemorrhagic given hematoma of uncertain etiology. - Hematoma as demonstrated on CT scan and left thigh - Management per primary team (4) Metabolic acidosis Status: Acute Assessment and plan: Non gap met acidosis - AG of 11 this AM - Respiratory alkalosis on ABG which may be compensatory - Patient intubated. - possible RTA vs GI losses. Management per primary team (5) Anuria Status: Acute Assessment and plan: per primary and nephrology teams possibly secondary to septic shock as above Infectious Disease HPI - Data of Consult Patient: new to practice Consult date: 03/24/18 Requesting Physician: Marnie Mayer MD Primary Care Provider: PCP NONE - Consult Narrative Reason for consult: Possible septic shock without known infectious source History of present illness: Ms. Whitten is a 67 year old female who presents to the ED from [facility] due to unresponsive, low blood pressure on 03/21/18. Infectious disease is consulted for possible shock without known source of infection on 03/24/18. PMH of baseline dementia, anxiety, panic disorder, hypothyroidism, osteoarthritis, HLD, HTN, OA, schizophrenia. Patient arrived to the ED with 1/4 SIRS Criteria with Tachycardia of 102. She was afebrile, with normal respiratory rate of 18 and WBC on admission of 9.6 with 87% segmented neutrophils. She was noted to be hypotensive in ED with BP 99/48. Emergent central line was placed by ED staff in right IJ and levophed was started. Her BUN/Cr was 40/1.47. Lactic acid was 1.7. Troponin was mildly elevated at 0.05 without EKG changes. Her urine analysis was negative for both nitrites and leukocyte esterase with many squamous epithelial cells. Her CXR was negative for any acute process in ED. She was admitted to the ICU for further care of hypotension of uncertain etiology. She was started on empiric vancomycin and aztreonam due to penicillin allergy. Futher workup included leukocytosis with max of 18.3 (as well as 16% bands on 03/23), lactic acidosis with max of 3.2, Troponin peak of 0.19, improving creatinine. She was started on heparin drip for troponinemia. Ct scans of head were negative for acute proc ess but did show evidence of chronic sinusitis on right. Follow-up sinus CT that showed opacification of many ethmoid air cells on right which may be inflammatory versus infectious in etiology. CT of the abdomen and pelvis was obtained on 04/01 which showed diffuse wall thickening of the colon indicative of pancolitis with a distended gallbladder and trace ascites. A drop in hemoglobin did discover a hematoma in the left thigh initially measuring 14.[address] on 03/23. Follow-up CTA on 03/23 showed 11.1 x 5.9 cm lobulated hematoma. Heparin drip was stopped and she did receive 3 units of packed red blood cells, 2 units of cryoprecipitate. On 03/23, she was intubated for acute respiratory failure. She also received an arterial line on same day. On 03/23, nephrology was consulted for oliguira and plans to start CRRT today. Patient is seen and appears sitting up in ICU bed. Patient is not able to answer questions due to endotracheal tube inserted. Patient makes eye contact but unable to obtain further history.Per nursing report, patient has not had much urine output to assess. Does report multiple loose bowel movements without evidence of hematochezia. CC: Marnie Mayer MD Past Med Surg Social Fam HX - Past Medical History Medical history: dementia, GERD, thyroid disease Psychiatric history: anxiety, panic disorder, schizophrenia, other - Past Surgical History Surgical History: non-contributory - Social History Smoking Status: Unknown if ever smoked Alcohol use: unknown Drug use: unknown Infectious Disease-CN:Meds Acetaminophen [Tylenol Arthritis] 650 mg PO Q6H PRN 03/22/18 [History] Acetaminophen [Tylenol] 650 mg PO BID PRN 03/22/18 [History] LORazepam [Ativan] 0.5 mg PO BID PRN 03/22/18 [History] Levothyroxine [Synthroid] 88 mcg PO 0630 03/22/18 [History] Pyrithione Zinc [Selsun Blue] 1 appl TP TUFR PRN 03/22/18 [History] RX: Docusate [Colace] 100 mg PO DAILY PRN 03/22/18 [History] Sertraline [Zoloft] 50 mg PO DAILY 03/22/18 [History] Zolpidem [Ambien] 5 mg PO HS PRN 03/22/18 [History] risperiDONE [Risperdal] 2 mg PO HS 03/22/18 [History] Allergy/AdvReac Type Severity Reaction Status Date / Time Penicillins Allergy See Verified 03/22/18 07:40 Comments ROS unobtainable: due to endotracheal tube Exam - Constitutional Vitals: Temp Pulse Resp BP Pulse Ox 98.7 F 109 23 105/49 98 03/24/18 11:00 03/24/18 12:00 03/24/18 13:35 03/24/18 12:00 03/24/18 13:35 Exam: Gen.: Vitals noted. No acute distress. Intubated but not sedated. Makes eye contact and is able to follow some commands. Neck: No posterior neck tenderness, no lymphadenopathy, No pain with neck flexion HEENT: PERRL/EOMI, oropharynx clear, Normocephalic, atraumatic, endotracheal tube in place. No scleral icterus or conjunctival hemorrhages. Cardiac: RRR, no murmur, +S1/S2 Pulmonary: Decreased breath sounds, otherwise CTA bilaterally, no wheezes, rales or rhonchi, equal chest expansion Abdomen: soft, does not grimmace with palpation, BS hypoactive, no guarding, no rebound. MSK: no joint swelling noted Extremities: 2+ BLE edema, nontender calf, no cyanosis or clubbing. Ecchymosis noted on left medial thigh. Neuro: Unable to assess secondary to mental status and intubation Psych: Unable to assess Infectious Disease CN: Results - Labs CBC & Chem 7: 03/24/18 14:00 03/24/18 03:00 Cultures: Cultures 03/23/18 11:30 Influenza Types A,B Antigen - Final Nasopharyngeal 03/21/18 22:25 Blood Culture - Preliminary Peripheral Venipuncture Culture is incubating and being continuously monitored for growth. Final report to follow. 03/21/18 22:31 Blood Culture - Preliminary Peripheral Venipuncture Culture is incubating and being continuously monitored for growth. Final report to follow. Serology: Serology 03/23/18 03/21/18 Range/Units 11:30 22:17 Urine Color Dark Yellow (Yellow) Urine Clarity Clear (Clear) Urine pH 5.0 (5.0-8.0) pH Units Ur Specific Collins 1.021 (1.010-1.025) Urine Protein Trace (Neg-Trace) mg/dL Urine Glucose (UA) Normal (Normal) mg/dL Urine Ketones Trace H (Negative) mg/dL Urine Blood Negative (Negative) Urine Nitrite Negative (Negative) Urine Bilirubin Large H (Negative) Urine Urobilinogen Normal (Normal) mg/dL Ur Leukocyte Esterase Negative (Negative) Urine Microscopic RBC 0-3 (0-3) per hpf Urine Microscopic WBC 0-3 (0-3) per hpf Ur Squamous Epith Cells Many H (None-Few) per lpf Urine Bacteria Few (None-Few) per hpf Hyaline Casts Few (None-Few) per lpf Urine Mucus Few (Few) Ur Culture Indicated? NO (NO) Chlamy pneumoniae PCR Not Detected (Not Detect) Adenovirus (PCR) Not Detected (Not Detect) B. pertussis DNA (PCR) Not Detected (Not Detect) B.parapertussis DNA PCR Not Detected (Not Detect) Coronavirus OC43 (PCR) Not Detected (Not Detect) Coronavirus HKU1 (PCR) Not Detected (Not Detect) Coronavirus 229E (PCR) Not Detected (Not Detect) Coronavirus NL63 (PCR) Not Detected (Not Detect) Human Metapneumovir PCR Not Detected (Not Detect) Influenza A (H1) PCR Not Detected (Not Detect) Influ A (H1N1/09) PCR Not Detected (Not Detect) Influenza A (H3) PCR Not Detected (Not Detect) Influenza A Untype (PCR) Not Detected (Not Detect) Influenza Type B (PCR) Not Detected (Not Detect) M.pneumoniae DNA (PCR) Not Detected (Not Detect) Parainfluenza 1 (PCR) Not Detected (Not Detect) Parainfluenza 2 (PCR) Not Detected (Not Detect) Parainfluenza 3 (PCR) Not Detected (Not Detect) Parainfluenza 4 (PCR) Not Detected (Not Detect) RSV (PCR) Not Detected (Not Detect) Entero/Rhino (PCR) Not Detected (Not Detect) Consult Discharge Plan - Plan Referrals: NONE,PCP [Primary Care Provider] - - Attending Attestation I examined this patient and my medical decision-making was reviewed with the Resident Physician. I agree with the documented findings, disposition and treatment plan as described except to the extent set forth below. This is an addendum to original report dictated by resident physician. Please refer to resident's note for full details. Patient is a 67-year-old woman with past medical history mentioned below pre sented to the emergency department with septic shock. Patient was admitted to the ICU has been on pressors and was later intubated. We were asked to evaluate the patient and help with possible source of the septic shock. Patient had extensive workup. Patient does not appear to be a urinary source or a pulmonary source for infection. Patient does have an ethmoid sinusitis but with no signs of meningitis it. Patient does have some fluid around the gallbladder and gallbladder thickening with some cholelithiasis. Initially the CT showed possible pancolitis her radiology report but then the most recent CT abdomen pelvis did not mention that. We did speak with radiology and they think this until thickening of the colon wall but they think it is all edema and not suggestive of colitis. Patient has had one watery bowel movement that was small yesterday. Patient was also noted to have a bilobed hematoma in the left thigh measuring 11.15.9 cm with worsening hematoma. She was started on heparin for elevated troponin and then I am not sure how the hematoma came about. I noticed that has something to do with her cardiogenic/bulimic shock. Clinically, this is difficult to determine the source of a possible infection. She is unable to provide a review of systems and her physical exam does not point towards obvious source. Radiology findings at this time are likely secondary to volume overload as well as hematoma as discussed elsewhere. - We will however, continue antibiotic coverage. - We will continue cefepime, Flagyl, vancomycin (day 3) - Continue vasopressor support - We will repeat blood cultures, 2 peripherally and 1 through central line to evaluate for CLABSI - Goal vancomycin of 15 - We will obtain GI panel to evaluate for GI possibilities including C. diffi cile - Obtain amylase, lipase to evaluate for pancreatitis - At this time, there is low suspicion for pulmonary etiology given negative respiratory infectious panel, multiple chest x-rays and CT scans. Do not feel atypical coverage is necessary at this point. Also low suspicion for urinary source or joint source or skin source.
[2018-03-24 15:29] LABS: Platelet Estimate Decreased (Normal)
[2018-03-24 15:52] LABS: Amylase 28 Units/L (29-103); Lipase 10 Units/L (11-82)
[2018-03-24] MEDS: FentaNYL (PF) 1,000 MCG in 0.9 % Sodium Chloride 80 ML IVC SCH (16:50)
[2018-03-24] MEDS: Hydrocortisone Sodium Succ 100 MG/2 ML VIAL IVP SCH ×2 (16:54→23:24)
[2018-03-24] MEDS ORDERED: 0.9 % Sodium Chloride 500 ML ONE (17:54)
[2018-03-24] MEDS ORDERED: Vancomycin 1 EACH in EMPTY BAG 1 EACH IVPB SCH (22:00)
[2018-03-25 02:20] LABS: Adenovirus F 40/41 PCR Not detected (Not detect); Astrovirus PCR Not detected (Not detect); C.difficile Toxin A/B by PCR Not detected (Not detect); Campylobacter by PCR Not detected (Not detect); Cryptosporidium by PCR Not detected (Not detect); Cyclospora cayetanensis PCR Not detected (Not detect); E. coli O157 by PCR Not detected (Not detect); Entamoeba histolytica PCR Not detected (Not detect); Enteroaggregative E.coli(EAEC) Not detected (Not detect); Enteropathogenic E.coli(EPEC) Not detected (Not detect); Enterotoxigenic E.coli (ETEC) Not detected (Not detect); Giardia lamblia PCR Not detected (Not detect); Norovirus GI/GII PCR Not detected (Not detect); Plesiomonas shigelloides PCR Not detected (Not detect); Rotavirus A PCR Not detected (Not detect); Salmonella PCR Not detected (Not detect); Sapovirus PCR Not detected (Not detect); Shig/EnteroinvasiveE coli EIEC Not detected (Not detect); Shigalike tox-prod E coli STEC Not detected (Not detect); Vibrio PCR Not detected (Not detect); Vibrio cholerae PCR Not detected (Not detect); Yersinia enterocolitica PCR Not detected (Not detect)
[2018-03-25 03:45] LABS: Basophils % 0.3 %
[2018-03-25 03:48] LABS: Hemoglobin 9.6 g/dL (11.5-15.4); Immature Granulocytes % 1.7 % (0-4); Immature Platelets 14.7 % (1.1-6.1); Lymphocytes # 0.4 K/mcL (0.6-4.6); Lymphocytes % 3.2 %; Mean Corpuscular HGB Conc 34.3 g/dL (31.6-35.5); Mean Corpuscular Hemoglobin 30.8 pg (28.0-33.3); Mean Corpuscular Volume 89.7 fL (83.0-100.0); Mean Platelet Volume 13.4 fL (9.4-12.4); Monocytes # 0.4 K/mcL (0.0-1.3); Monocytes % 3.4 %; Nucleated Red Blood Cells 0.8 /100 WBC (0); Red Blood Count 3.12 M/mcL (3.82-4.97); Red Cell Distribution Width 18.6 % (11.5-14.5); Segmented Neutrophils % 91.4 %
[2018-03-25 03:49] LABS: VBG Ionized Calcium 1.09 mmol/L (1.15-1.35)
[2018-03-25 03:59] LABS: Neutrophils # 10.8 K/mcL (1.6-8.9); Platelet Count 55 K/mcL (140-400)
[2018-03-25 04:07] LABS: Albumin 2.3 g/dL (3.5-5.7); Albumin/Globulin Ratio 1.6 (1.1-2.2); Bilirubin,Total 0.7 mg/dL (0.3-1.0); Calcium 7.4 mg/dL (8.6-10.3); Globulin 1.4 g/dL (2.4-3.5); Phosphorous 4.1 mg/dL (2.7-4.5); Potassium 4.4 mEq/L (3.5-5.1); Total Protein 3.7 g/dL (6.4-8.9)
[2018-03-25 04:28] LABS: ABG Base Excess -12 mEq/L (-2 to 3); ABG HCO3 12 mEq/L (21-27); ABG Oxygen Saturation 98 % (95-98); ABG PCO2 23 mmHg (35-45); ABG PH 7.34 pH Units (7.32-7.45); ABG PO2 113 mmHg (85-104); ABG TCO2 13 mEq/L (20-26); Blood Gas Modality ASSIST CONTROL; Blood Gas PEEP 5 cm H2O; Blood Gas Respiration Rate 16; Blood Gas VT 380 cc
[2018-03-25] MEDS: Artificial Tears SOLN 15 ML BOTTLE BOTH EYES SCH ×6 (05:13→23:30)
[2018-03-25] MEDS: Pantoprazole 40 MG VIAL IVP SCH ×2 (05:49→18:12)
[2018-03-25] MEDS: Levothyroxine Sodium 100 MCG VIAL IVP SCH (05:49)
[2018-03-25] MEDS: EPINEPHrine 1 MG in D5% in Water 250 ML IVC SCH (08:08)
[2018-03-25] MEDS: FentaNYL (PF) 1,000 MCG in 0.9 % Sodium Chloride 80 ML IVC SCH ×2 (08:08→08:42)
[2018-03-25] MEDS: Insulin LISPRO 300 UNITS/3 ML VIAL SQ SCH ×4 (08:09→23:36)
[2018-03-25] MEDS ORDERED: Insulin LISPRO 300 UNITS/3 ML VIAL SQ SCH (08:15)
[2018-03-25] MEDS: 0.9 % Sodium Chloride 1,000 ML IVC SCH (08:16)
[2018-03-25] MEDS: Cefepime HCl 2,000 MG in Water for inj. (sterile) 20 ML 20 ML IVP SCH ×2 (08:21→20:26)
[2018-03-25] MEDS: Hydrocortisone Sodium Succ 100 MG/2 ML VIAL IVP SCH ×3 (08:21→23:29)
[2018-03-25] MEDS: MetroNIDAZOLE 500 MG/100 ML 500 MG/100 ML BAG IVPB SCH ×3 (08:21→23:30)
[2018-03-25] MEDS: Chlorhexidine Rinse 15 ML MOUTHWASH MM SCH ×2 (08:21→20:26)
[2018-03-25] MEDS: Nystatin OINT 15 GM TUBE TP SCH ×4 (08:22→20:27)
--- NOTE | 2018-03-25 09:13 | Pulmonology Progress Note ---
<Galileo Lizama - Last Filed: 03/25/18 15:24> Date of Encounter: 03/25/18 Time of Encounter: 09:05 Assessment and Plan (1) Septic shock Current Visit: Yes Status: Acute On admission patient did not meet SIRS criteria with only tachycardia in the low 100s Throughout hospitalization patient had tachycardia, leukocytosis and tachypnea leading to intubation Lactic acid elevated 1.7-0.9-3.2-2.5-3.0-5.6-5.1 No known source of infection concern of cholecystitis, pneumonia, sinusitis, bacteremia Cholecystitis unlikely as U/S is negative and abdominal pain isn't present Requiring vasopressors currently vasopressin and levothyroxine Blood cultures preliminary negative Respiratory infectious panel negative urinalysis negative Infectious disease on board appreciate recs cefepime, Flagyl, and vancomycin day 4 Continue vasopressors GI panel continue to monitior for source of infection surgery consulted appreciate recs (2) Hemorrhagic shock Current Visit: Yes Status: Suspected Admitted from [facility] due to concerns for hypotension and decreased alertness BP on admission 99/48 Pt was initially started on Heparin drip with elevated troponins Hgb 03/23 was 8.1 currently 9.6 Platelets 55 Heparin drip was subsequently stopped 1 unit of platelets ordered today Pt remains hypotensive on Levophed and vasopressin Arterial line place for hemodynamic monitoring Continue to titrate pressors to maintain MAP>65 Monitor H&H and transfuse as needed Repeat CT head, chest, abdomen, and pelvis to evaluate for possible sources of bleeding found a large hematoma in her left thigh, IR tried to embolize but there was no bleed at time of procedure (3) Metabolic acidosis Current Visit: Yes Status: Acute origianlly seen with Non-anion gap metabolic acidosis Received 4 amps of Sodium Bicarb Unable to adequately compensate from respiratory standpoint - elected to intubate pt Serial ABGs Continue to monitor 03/25 ABG 7.34, 2.3, 113, 12, 98, -12 (4) Lactic acidosis Current Visit: Yes Status: Acute As above for septic shock - Discussed with radiology, there is low suspicion for ischemic colitis at this time - Likely hypoperfusion however the etiology of this is unclear (5) Elevated troponin Current Visit: Yes Status: Acute nitial troponin in emergency department 0.05 -> 0.17 -> 0.19 EKG showed sinus tachycardia with inverted T waves in leads I, AVL Pt denied any chest pain, shortness of breath, or diaphoresis Echo results as follows: - LVEF 65-70% - Normal LV chamber size, wall thickness, and systolic function - Mild LV diastolic dysfunction - mild aortic and tricuspic regurg - No pulmonary HTN - IVC normal dimensions and inspiratory collapse Cardio is on board - ACS unlikely. More likely demand ischemia related to hypotension Initially started on Heparin drip but due to decrease in Hgb from 11-->8 from 03/22 to 03/23 the heparin drip was stopped (6) Decreased urination Current Visit: Yes Status: Acute Nephrology consulted appreciate recs SCr worsening from 1.04 yesterday to 1.32 today with very UOP Will proceed with CRRT today Fluid overload now a concern, will start CVVH with goal UF of 100cc/hr if tolerated Continue 24hr urine for CrCl Avoid nephrotoxins if possible (7) Schizoaffective disorder Current Visit: Yes Status: Chronic chronic Qualifiers: Schizoaffective disorder type: unspecified Qualified Code(s): F25.9 - Schizoaffective disorder, unspecified (8) Hypothyroidism Current Visit: Yes Status: Chronic Home synthroid Qualifiers: Hypothyroidism type: unspecified Qualified Code(s): E03.9 - Hypothyroidism, unspecified (9) DVT prophylaxis Current Visit: Yes Status: Acute EPCDs heparin held due to bleed concern Subjective Principal diagnosis: Hypotension Interval history: No acute events overnight. Not currently acidotic but is anemic and thromboc ytopenic. Still requiring vasopressors. CRRT to start today. Objective PUL Vital signs: Last Vital Signs Temp 96.8 F L 03/25/18 04:41 Pulse 78 03/25/18 06:00 Resp 22 03/25/18 07:56 BP 105/45 03/25/18 06:00 Pulse Ox 97 03/25/18 07:56 General appearance: other (sedated and intubated. does not follow commands) Auscultation: bilateral: wheezes Cardiovascular: regular rate and rhythm Gastrointestinal: normoactive bowel sounds, soft, non-tender Extremities: anasarca unable to assess due to mental status Ventilator Settings Ventilator Settings: Ventilator Settings, Last 8 Hours Ventilator Tidal Volume 380 Setting Ventilator Tidal Volume 380 Setting Ventilator Tidal Volume 380 Setting Ventilator Tidal Volume 380 Setting Ventilator Tidal Volume 380 Setting Ventilator Tidal Volume 380 Setting Ventilator Tidal Volume 380 Setting Ventilator Tidal Volume 380 Setting Ventilator Tidal Volume 380 Setting Ventilator Respiratory Rate 16 Setting Ventilator Respiratory Rate 16 Setting Ventilator Respiratory Rate 16 Setting Ventilator Respiratory Rate 16 Setting Ventilator Respiratory Rate 16 Setting Ventilator Respiratory Rate 16 Setting Ventilator Respiratory Rate 16 Setting Ventilator Respiratory Rate 16 Setting Ventilator Respiratory Rate 16 Setting Actual Respiratory Rate 22 Actual Respiratory Rate 22 Actual Respiratory Rate 25 Actual Respiratory Rate 19 Actual Respiratory Rate 19 Actual Respiratory Rate 20 Actual Respiratory Rate 20 Positive End Expiratory 5 Pressure Positive End Expiratory 5 Pressure Positive End Expiratory 5 Pressure Positive End Expiratory 5 Pressure Positive End Expiratory 5 Pressure Positive End Expiratory 5 Pressure Positive End Expiratory 5 Pressure Positive End Expiratory 5 Pressure Positive End Expiratory 5 Pressure Peak Inspiratory Airway 17 Pressure Peak Inspiratory Airway 15 Pressure Peak Inspiratory Airway 21 Pressure Peak Inspiratory Airway 11 Pressure Peak Inspiratory Airway 5.3 Pressure Peak Inspiratory Airway 5.1 Pressure Peak Inspiratory Airway 9.7 Pressure Results - Laboratory Findings CBC and BMP: 03/25/18 12:00 03/25/18 12:00 ABG ABG pH 7.34 pH Units (7.32-7.45) 03/25/18 04:24 ABG pCO2 23 mmHg (35-45) L 03/25/18 04:24 ABG pO2 113 mmHg (85-104) H 03/25/18 04:24 ABG O2 Saturation 98 % (95-98) 03/25/18 04:24 PT/INR, D-dimer PT 15.5 Seconds (9.4-12.1) H 03/24/18 14:00 Abnormal lab findings: Abnormal lab results WBC 11.8 K/mcL (4.3-11.1) H 03/25/18 03:31 RBC 3.12 M/mcL (3.82-4.97) L 03/25/18 03:31 Hgb 9.6 g/dL (11.5-15.4) L 03/25/18 03:31 Hct 28.0 % (35.3-44.9) L 03/25/18 03:31 RDW 18.6 % (11.5-14.5) H 03/25/18 03:31 Plt Count 55 K/mcL (140-400) L 03/25/18 03:31 MPV 13.4 fL (9.4-12.4) H 03/25/18 03:31 Band Neutrophils % 16.0 % (0-4) H 03/23/18 11:09 Neutrophils # 10.8 K/mcL (1.6-8.9) H 03/25/18 03:31 Lymphocytes # 0.4 K/mcL (0.6-4.6) L 03/25/18 03:31 Nucleated RBCs/100 WBC 0.8 /100 WBC (0) H 03/25/18 03:31 Platelet Estimate Decreased (Normal) L 03/24/18 14:00 Immature Plt Fraction 14.7 % (1.1-6.1) H 03/25/18 03:31 Anisocytosis 1+ (Not Present) A 03/23/18 13:25 Microcytosis Present (Not Present) A 03/23/18 13:25 Macrocytosis Present (Not Present) A 03/23/18 13:25 PT 15.5 Seconds (9.4-12.1) H 03/24/18 14:00 APTT 39.0 Seconds (26.0-36.0) H 03/24/18 14:00 Heparin Anti-Xa, Unfract 0.81 IU/mL (0.30-0.70) H 03/23/18 03:06 ABG pCO2 23 mmHg (35-45) L 03/25/18 04:24 ABG pO2 113 mmHg (85-104) H 03/25/18 04:24 ABG HCO3 12 mEq/L (21-27) L 03/25/18 04:24 ABG Total CO2 13 mEq/L (20-26) L 03/25/18 04:24 ABG Base Excess -12 mEq/L (-2 to 3) L 03/25/18 04:24 Chloride 112 mEq/L (98-107) H 03/25/18 03:31 Carbon Dioxide 11 mEq/L (23-29) L 03/25/18 03:31 BUN 33 mg/dL (8-23) H 03/25/18 03:31 Creatinine 1.32 mg/dL (0.60-1.20) H 03/25/18 03:31 Est GFR ( Amer) 48 (> 60) L 03/25/18 03:31 Est GFR (Non-Af Amer) 40 (> 60) L 03/25/18 03:31 Glucose 159 mg/dL (70-105) H 03/25/18 03:31 POC Glucose 118 mg/dL (70-99) H 03/24/18 23:07 Lactic Acid 5.1 mmol/L (0.5-2.2) H* 03/25/18 07:50 Calcium 7.4 mg/dL (8.6-10.3) L 03/25/18 03:31 Venous Ioniz Calcium 1.09 mmol/L (1.15-1.35) L 03/25/18 03:43 Lactate Dehydrogenase 129 Units/L (140-271) L 03/23/18 07:51 Troponin I 0.19 ng/mL (< 0.04) H* 03/22/18 08:05 Serum Total Protein 3.7 g/dL (6.4-8.9) L 03/25/18 03:31 Albumin 2.3 g/dL (3.5-5.7) L 03/25/18 03:31 Globulin 1.4 g/dL (2.4-3.5) L 03/25/18 03:31 Amylase 28 Units/L (29-103) L 03/24/18 03:00 Lipase 10 Units/L (11-82) L 03/24/18 03:00 TSH 0.169 mcIU/mL (0.340-5.600) L 03/22/18 08:05 Free T3 2.00 pg/mL (2.50-3.90) L 03/22/18 08:05 Arterial Blood Ionized Calcium 1.01 mmol/L (1.15-1.35) L 03/23/18 20:08 Urine Ketones Trace mg/dL (Negative) H 03/21/18 22:17 Urine Bilirubin Large (Negative) H 03/21/18 22:17 Ur Squamous Epith Cells Many per lpf (None-Few) H 03/21/18 22:17 Vancomycin Trough 25 mcg/mL (5-10) H 03/24/18 20:15 - Microbiology Findings Microbiology Findings: Microbiology, Last 48 Hours 03/24/18 15:45 Blood Culture - Preliminary Central Venous Catheter Culture is incubating and being continuously monitored for growth. Final report to follow. 03/24/18 15:45 Blood Culture - Preliminary Central Venous Catheter Culture is incubating and being continuously monitored for growth. Final report to follow. 03/24/18 15:40 Blood Culture - Preliminary Peripheral Venipuncture Culture is incubating and being continuously monitored for growth. Final report to follow. 03/24/18 15:36 Blood Culture - Preliminary Peripheral Venipuncture Culture is incubating and being continuously monitored for growth. Final report to follow. 03/23/18 11:30 Influenza Types A,B Antigen - Final Nasopharyngeal - Clinical Findings Intake & Output: Intake & Output 03/24/18 03/25/18 03/25/18 23:59 07:59 15:59 Intake Total 171 / 171 390.9 / 390.9 21.8 / 21.8 Output Total 40 / 40 Balance 131 / 131 390.9 / 390.9 21.8 / 21.8 Weight 81 kg Consult Discharge Plan - Plan Referrals: NONE,PCP [Primary Care Provider] - <Pedro Rodriguez - Last Filed: 03/26/18 00:40> Date of Encounter: 03/26/18 Objective PUL Vital signs: Last Vital Signs Temp 94 F L 03/26/18 00:00 Pulse 69 03/26/18 00:00 Resp 21 03/26/18 00:00 BP 93/40 03/26/18 00:00 Pulse Ox 100 03/26/18 00:00 Ventilator Settings Ventilator Settings: Ventilator Settings, Last 8 Hours Ventilator Tidal Volume 380 Setting Ventilator Tidal Volume 380 Setting Ventilator Tidal Volume 380 Setting Ventilator Tidal Volume 380 Setting Ventilator Tidal Volume 380 Setting Ventilator Tidal Volume 380 Setting Ventilator Tidal Volume 380 Setting Ventilator Tidal Volume 380 Setting Ventilator Tidal Volume 380 Setting Ventilator Respiratory Rate 16 Setting Ventilator Respiratory Rate 16 Setting Ventilator Respiratory Rate 16 Setting Ventilator Respiratory Rate 16 Setting Ventilator Respiratory Rate 16 Setting Ventilator Respiratory Rate 16 Setting Ventilator Respiratory Rate 16 Setting Ventilator Respiratory Rate 16 Setting Ventilator Respiratory Rate 16 Setting Actual Respiratory Rate 22 Actual Respiratory Rate 25 Actual Respiratory Rate 24 Actual Respiratory Rate 21 Actual Respiratory Rate 21 Actual Respiratory Rate 20 Actual Respiratory Rate 23 Actual Respiratory Rate 21 Actual Respiratory Rate 22 Positive End Expiratory 5 Pressure Positive End Expiratory 5 Pressure Positive End Expiratory 5 Pressure Positive End Expiratory 5 Pressure Positive End Expiratory 5 Pressure Positive End Expiratory 5 Pressure Positive End Expiratory 5 Pressure Positive End Expiratory 5 Pressure Positive End Expiratory 5 Pressure Peak Inspiratory Airway 20 Pressure Peak Inspiratory Airway 14 Pressure Peak Inspiratory Airway 13 Pressure Peak Inspiratory Airway 15 Pressure Peak Inspiratory Airway 15 Pressure Peak Inspiratory Airway 15 Pressure Peak Inspiratory Airway 18 Pressure Peak Inspiratory Airway 21 Pressure Peak Inspiratory Airway 10 Pressure Results - Laboratory Findings CBC and BMP: 03/25/18 23:29 03/25/18 23:29 ABG ABG pH 7.34 pH Units (7.32-7.45) 03/25/18 04:24 ABG pCO2 23 mmHg (35-45) L 03/25/18 04:24 ABG pO2 113 mmHg (85-104) H 03/25/18 04:24 ABG O2 Saturation 98 % (95-98) 03/25/18 04:24 PT/INR, D-dimer PT 20.0 Seconds (9.4-12.1) H 03/25/18 15:00 Abnormal lab findings: Abnormal lab results RBC 2.44 M/mcL (3.82-4.97) L 03/25/18 23: Hgb 7.6 g/dL (11.5-15.4) L 03/25/18 23: Hct 22.2 % (35.3-44.9) L 03/25/18 23: RDW 18.3 % (11.5-14.5) H 03/25/18 23:29 Plt Count 40 K/mcL (140-400) L 03/25/18 23:29 Band Neutrophils % 16.0 % (0-4) H 03/23/18 11: Lymphocytes # 0.4 K/mcL (0.6-4.6) L 03/25/18 23:29 Nucleated RBCs/100 WBC 0.6 /100 WBC (0) H 03/25/18 23:29 Platelet Estimate Marked Decrease (Normal) L 03/25/18 23:29 Immature Plt Fraction 11.0 % (1.1-6.1) H 03/25/18 23:29 Anisocytosis 1+ (Not Present) A 03/23/18 13:25 Microcytosis Present (Not Present) A 03/23/18 13:25 Macrocytosis Present (Not Present) A 03/23/18 13:25 PT 20.0 Seconds (9.4-12.1) H 03/25/18 15:00 APTT 46.6 Seconds (26.0-36.0) H 03/25/18 23:29 Heparin Anti-Xa, Unfract 0.81 IU/mL (0.30-0.70) H 03/23/18 03:06 ABG pCO2 23 mmHg (35-45) L 03/25/18 04:24 ABG pO2 113 mmHg (85-104) H 03/25/18 04:24 ABG HCO3 12 mEq/L (21-27) L 03/25/18 04:24 ABG Total CO2 13 mEq/L (20-26) L 03/25/18 04:24 ABG Base Excess -12 mEq/L (-2 to 3) L 03/25/18 04:24 Carbon Dioxide 20 mEq/L (23-29) L 03/25/18 23:29 BUN/Creatinine Ratio 27 (6-26) H 03/25/18 23:29 Glucose 150 mg/dL (70-105) H 03/25/18 23:29 POC Glucose 118 mg/dL (70-99) H 03/24/18 23:07 Lactic Acid 4.2 mmol/L (0.5-2.2) H* 03/25/18 23:29 Venous Ioniz Calcium 0.81 mmol/L (1.15-1.35) L 03/26/18 00:09 Phosphorus 1.9 mg/dL (2.7-4.5) L 03/25/18 23:29 Direct Bilirubin 0.4 mg/dL (0.0-0.2) H 03/25/18 23:29 Lactate Dehydrogenase 129 Units/L (140-271) L 03/23/18 07:51 Troponin I 0.19 ng/mL (< 0.04) H* 03/22/18 08:05 Serum Total Protein 4.2 g/dL (6.4-8.9) L 03/25/18 23:29 Albumin 2.9 g/dL (3.5-5.7) L 03/25/18 23:29 Globulin 1.3 g/dL (2.4-3.5) L 03/25/18 23:29 Amylase 28 Units/L (29-103) L 03/24/18 03:00 Lipase 10 Units/L (11-82) L 03/24/18 03:00 TSH 0.169 mcIU/mL (0.340-5.600) L 03/22/18 08:05 Free T3 2.00 pg/mL (2.50-3.90) L 03/22/18 08:05 Arterial Blood Ionized Calcium 1.01 mmol/L (1.15-1.35) L 03/23/18 20:08 Urine Ketones Trace mg/dL (Negative) H 03/21/18 22:17 Urine Bilirubin Large (Negative) H 03/21/18 22:17 Ur Squamous Epith Cells Many per lpf (None-Few) H 03/21/18 22:17 Vancomycin Trough 16 mcg/mL (5-10) H 03/25/18 17:10 - Microbiology Findings Microbiology Findings: Microbiology, Last 48 Hours 03/24/18 15:45 Blood Culture - Preliminary Central Venous Catheter Culture is incubating and being continuously monitored for growth. Final report to follow. 03/24/18 15:45 Blood Culture - Preliminary Central Venous Catheter Culture is incubating and being continuously mon itored for growth. Final report to follow. 03/24/18 15:40 Blood Culture - Preliminary Peripheral Venipuncture Culture is incubating and being continuously monitored for growth. Final report to follow. 03/24/18 15:36 Blood Culture - Preliminary Peripheral Venipuncture Culture is incubating and being continuously monitored for growth. Final report to follow. - Clinical Findings Intake & Output: Intake & Output 03/25/18 03/25/18 03/26/18 15:59 23:59 07:59 Intake Total 769.0 / 769.0 1160.9 / 1160.9 189 / 189 Output Total 148 / 148 1481 / 1481 284 / 284 Balance 621.0 / 621.0 -320.1 / -320.1 -95 / -95 - Attending Attestation - Attending Attestation Attending Attestation I saw and evaluated this patient and my medical decision-making was reviewed with the Resident Physician. I agree with the documented findings, disposition and treatment plan as described except to the extent set forth below. We independently had [id number] contact with the patient I spent 45 minutes of Critical Care time with this patient. It involved decision making of high complexity to assess, manipulate, and support vital organ system failure and/or to prevent further life threatening deterioration of the patient's condition. The time involved in the performance of separately reportab le procedures was not counted toward critical care time. Patient seen and examined at bedside Labs, radiology, chart personally reviewed. Management was reviewed during multidisciplinary critical care rounds. 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: Patient has with altered mental status drowsy but arousable can tell where she is at she is AO X 1 is worse than her baseline looks like encephalopathy secondary to hypertension no focal neurological deficit CT head did not show any acute findings 03/23 patient is more alert than yesterday following commands no acute focal neurological deficit low concern for stroke since patient has this chronic sinusitis concern for meningitis will increase the antibiotic dose to meningitis coverage cannot do an lumbar puncture because of her underlying coagulopathy and she was recently on heparin for ACS 03/24 patient is spontaneously opening her eyes more alert this the best I have seen during her hospital stay. 03/25 patient is conscious opening her eyes but she is not following commands Pulm: Patient has acceptable V/Q mismatch with acceptable oxygenation and ventilation no evidence of pneumonia patient have some possible chronic sinus infection will get CT sinuses to look for any collection that can be drained. 03/23 patient has acceptable oxygenation and ventilation patient has worsening metabolic acidosis which she cannot respiratory compensate so I decided to intubate and mechanically ventilate her and to correct metabolic acidosis . 03/24 patient has acceptable oxygenation and ventilation minimal ventilatory support patient still has unresolved metabolic acidosis due to her acute kidney injury. 03/25 Patient has acceptable oxygenation and ventilation. Cards: Patient is in shock most likely sepsis versus cardiogenic complicated by some volume depletion to keep the vasopressors and the map around 65 will wait for transthoracic echocardiogram will trend troponins we will look for other sources of sepsis. 03/23 there is no evidence of cardiac in shock and not convinced about septic shock either with his drop in hemoglobin with patient on heparin for ACS and concerned about more of hemorrhagic shock stopped the heparin when I came in for my shift . I sent her for CT chest abdomen pelvis and thigh for dissection protocol found to have a large intramuscular hematoma in her left thigh with a bleeding vessel I spoke with interventional radiologist will try to call coil the bleeding vessel. I went over echocardiogram personally with a non-outside solar sales consultant which showed hyperdynamic left ventricle with good right ventricle function with some inspiratory collapse of IVC more pointing towards hypokalemia 03/24 after the yesterday events of discovering the left-sided intramuscular hematoma in the thigh mostly in the abductor muscle region most likely is due to hemorrhagic shock looks like the bleeding is stopped patient is still hypotensive now I am concerned for any septic shock in the background we will consult infectious disease for further input. As there is no obvious source of infection except for the chronic sinusitis 03/25 patient still in shock is no obvious source of infection repeat echo showed EF percent with artery is not visualized. To liberate vasopressors as tolerated FEN-GI: Diet according to nutrition. Renal: Patient has poor urine output in the range of Anuria with worsening creatinine and fluid overload patient will be started on CVVH.. ID: To look for other source for sepsis due to CT sinuses and CT abdomen and pelvis without any 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 infection to continue broad-spectrum antibiotics to follow cultures. 03/23 no obvious source of sepsis will cover with broad-spectrum antibiotics will do meningitis coverage. If after correcting the hyponatremia and the bleeding if still she is in shock will consult infectious disease. 03/24 after correcting the hemorrhagic shock patient still on vasopressors we will try to give more colloids will consult ID to have their input to look for any other source for infection. 03/25 ID consulted to continue broad-spectrum antibiotics no obvious source of infection. Heme/Onc: Patient looks like DIC but there is no obvious reason for this DIC unless there is any septic focus to correct coagulopathy. To replete the blood loss anemia with PRBC. Low concern for TTP. EPCD . Heparin stopped 03/24 patient coagulopathy corrected and patient has some thrombocytopenia will keep the platelets about 80,000 as patient might have some slow venous oozing 03/25 patient be a slight DIC a slow trending down hemoglobin will replace platelets probably she will need PRBCs to keep platelets above 50,000 and fibrinogen greater than 150. The hemoglobin is keep trending down we will need to reimage her. Endo: Glucose Monitored Integ/MSK: Skin Care per routine ICU Nursing Protocol to prevent ulcers. Lines: All lines examined without evidence of infection : Dispo: Critically ill , Family updated CODE:Full Code
--- NOTE | 2018-03-25 10:47 | Nephrology Progress Note ---
Date of Encounter: 03/25/18 Time of Encounter: 11:00 - Assessment and Plan (1) BREE (acute kidney injury) Current Visit: Yes Status: Acute SCr worsening from 1.04 yesterday to 1.32 today with very UOP Will proceed with CRRT today, held off yesterday as condition was unusal with decreased UOP and yet great SCr Fluid overload now a concern, will start CVVH with goal UF of 100cc/hr if tolerated Continue 24hr urine for CrCl Avoid nephrotoxins if possible' Time spent in critcal care approx. 35mins (2) Oliguria and anuria Current Visit: Yes Status: Acute See above (3) Metabolic acidosis Current Visit: Yes Status: Acute Should improve on CRRT (4) Hemorrhagic shock Current Visit: Yes Status: Suspected per primary team Subjective Principal diagnosis: Hypotension Interval history: Interim noted pt seen and examined still intubated and awake/responsive. UOp documented at 157cc in the past 24hrs. Pt also remains on pressor support Objective - Vital Signs Vital signs: Vital Signs Temp Pulse Resp BP Pulse Ox 03/25/18 09:32 96.4 F L 93 18 97/44 97 03/25/18 09:17 96.6 F L 90 22 87/43 03/25/18 09:00 89 19 90/44 99 03/25/18 08:00 96.6 F L 93 22 115/50 100 03/25/18 07:56 22 97 03/25/18 07:00 81 19 113/45 100 03/25/18 06:00 78 22 105/45 99 03/25/18 05:18 20 107/42 100 03/25/18 05:00 78 21 116/46 96 03/25/18 04:41 96.8 F L 03/25/18 04:00 80 19 94/46 100 03/25/18 03:30 19 112/44 100 03/25/18 03:02 96.6 F L 96 18 112/44 95 03/25/18 03:00 96.6 F L 81 18 107/46 98 03/25/18 01:56 96.4 F L 81 20 112/62 98 03/25/18 01:05 18 106/46 100 03/25/18 00:52 79 19 102/44 100 03/25/18 00:00 82 20 104/44 99 03/24/18 23:21 21 107/45 100 03/24/18 23:06 96.9 F L 03/24/18 23:00 93 20 109/45 100 03/24/18 22:00 96.6 F L 84 20 97/44 100 03/24/18 21:28 19 100 03/24/18 20:55 96.4 F L 93 21 101/44 100 03/24/18 20:00 94 20 100/47 03/24/18 19:55 94 20 100/47 100 03/24/18 19:45 20 99/48 99 03/24/18 19:02 97.5 F L 03/24/18 19:00 90 22 103/47 03/24/18 18:00 96 22 107/50 99 03/24/18 17:00 98 20 105/47 100 03/24/18 16:54 20 100 03/24/18 16:00 98.0 F 99 20 103/49 100 03/24/18 15:00 98 21 112/52 100 03/24/18 14:00 105 22 105/50 100 03/24/18 13:35 23 98 03/24/18 13:00 101 21 106/49 99 03/24/18 12:00 109 20 105/49 99 03/24/18 11:15 19 98 03/24/18 11:00 98.7 F 109 19 107/49 98 Intake and Output 03/24/18 03/25/18 03/25/18 23:59 07:59 15:59 Intake Total 171 / 171 390.9 / 390.9 446.8 / 446.8 Output Total 40 / 40 30 / 30 Balance 131 / 131 390.9 / 390.9 416.8 / 416.8 Intake: IV Fluids 171 / 171 390.9 / 390.9 142.8 / 142.8 Vasostrict 40 UNIT In Dextrose 71 / 71 74.7 / 74.7 5% 100 ML @ 0.03 UNIT/MIN 4.59 mls/hr IV .[id number] [facility] Rx#: [id number] FentaNYL (PF) 1,000 MCG In 0.9 1 / 1 % Sodium Chloride 80 ML @ 50 MCG/HR 5 mls/hr IVC CONT [facility] Rx #:[id number] Levophed 8 MG In Dextrose 5% 216.2 / 216.2 1.8 / 1.8 250 ML @ 3 MCG/MIN 5.81 mls/hr IVC CONT [facility] Rx#:[id number] Maxipime 2,000 MG In Water for 40 / 40 inj. (sterile) 20 ML @ 300 mls/ hr IVP Q12H [facility] Rx#:[id number] Flagyl Premix 500 MG/100 ML 500 100 / 100 100 / 100 100 / 100 mg In 100 ml @ 100 mls/hr IVPB Q8HR [facility] Rx#:[id number] Oral 0 / 0 Blood Product 304 / 304 Platelet Pheresis Lp Irr 1st 304 / 304 Unit [id number] Output: Urine 0 / 0 Catheter 30 Other: Weight 81 kg Blood Glucose* 118 - General Appearance General appearance: Present: chronically ill, intubated Exam: minimally awake, opens eyes EENT: Present: ATNC, mucous membranes dry Neck: Present: no JVD, supple Cardiology: Present: edema (LE/UE bilat with seeping fluids UE bilat), normal S1, normal S2 Dialysis Vascular Access: Venous Catheter (temp line) Gastrointestinal: Present: no tenderness, no guarding Integumentary: Present: warm and dry Additional Comments: minimally awake, open eyes Musculoskeletal: Present: no deformities Additional Comments: cannot assess - Lab 03/26/18 17:45 03/26/18 23:33 Most recent lab results ABG pH 7.34 pH Units (7.32-7.45) 03/25/18 04:24 ABG pCO2 23 mmHg (35-45) L 03/25/18 04:24 ABG pO2 113 mmHg (85-104) H 03/25/18 04:24 ABG HCO3 12 mEq/L (21-27) L 03/25/18 04:24 ABG O2 Saturation 98 % (95-98) 03/25/18 04:24 Calcium 7.4 mg/dL (8.6-10.3) L 03/25/18 03:31 Phosphorus 4.1 mg/dL (2.7-4.5) 03/25/18 03:31 Magnesium 2.0 mg/dL (1.6-2.6) 03/25/18 03:31 Consult Discharge Plan - Plan Referrals: NONE,PCP [Primary Care Provider] -
[2018-03-25] MEDS ORDERED: Calcium Gluconate 2,000 MG in 0.9 % Sodium Chloride 100 ML IVPB PRN (11:26)
[2018-03-25] MEDS ORDERED: 0.9 % Sodium Chloride 1,000 ML PRIME PRN (11:26)
[2018-03-25] MEDS ORDERED: *HR* Alteplase (Cathflo) 2 MG VIAL IVP PRN (11:26)
[2018-03-25] MEDS ORDERED: 0.9 % Sodium Chloride 2,000 ML ONE (11:41)
[2018-03-25] MEDS: PrismaSATE BGK 4/2.5 5,000 ML CRRT SCH ×3 (12:19→19:24)
[2018-03-25] MEDS: Calcium Chloride 4,000 MG in 0.9 % Sodium Chloride 1,000 ML CRRT SCH (12:19)
[2018-03-25 12:24] LABS: Basophils % 0.2 %; Eosinophils % 0.1 %; Hematocrit 25.6 % (35.3-44.9); Hemoglobin 8.8 g/dL (11.5-15.4); Immature Granulocytes % 1.3 % (0-4); Lymphocytes # 0.6 K/mcL (0.6-4.6); Lymphocytes % 4.8 %; Mean Corpuscular HGB Conc 34.4 g/dL (31.6-35.5); Mean Corpuscular Hemoglobin 31.3 pg (28.0-33.3); Mean Corpuscular Volume 91.1 fL (83.0-100.0); Mean Platelet Volume 11.8 fL (9.4-12.4); Monocytes # 0.5 K/mcL (0.0-1.3); Monocytes % 4.3 %; Nucleated Red Blood Cells 0.7 /100 WBC (0); Red Blood Count 2.81 M/mcL (3.82-4.97); Red Cell Distribution Width 18.4 % (11.5-14.5); Segmented Neutrophils % 89.3 %
[2018-03-25 12:25] LABS: Neutrophils # 10.3 K/mcL (1.6-8.9); Platelet Count 74 K/mcL (140-400)
[2018-03-25 12:34] LABS: VBG Ionized Calcium 1.09 mmol/L (1.15-1.35)
[2018-03-25 12:49] LABS: Albumin 2.5 g/dL (3.5-5.7); Albumin/Globulin Ratio 1.5 (1.1-2.2); Bilirubin,Direct 0.3 mg/dL (0.0-0.2); Bilirubin,Indirect 0.5 mg/dL (0.0-1.2); Bilirubin,Total 0.8 mg/dL (0.3-1.0); Calcium 7.5 mg/dL (8.6-10.3); Globulin 1.7 g/dL (2.4-3.5); Magnesium 1.9 mg/dL (1.6-2.6); Phosphorous 3.9 mg/dL (2.7-4.5); Potassium 4.2 mEq/L (3.5-5.1); Total Protein 4.2 g/dL (6.4-8.9)
[2018-03-25] MEDS: Norepinephrine 8 MG in D5% in Water 250 ML IVC SCH (12:56)
[2018-03-25] MEDS: Vasopressin 40 UNIT in D5% in Water 100 ML IV SCH (12:58)
[2018-03-25] MEDS ORDERED: Albumin 25% 25gram/100mL 25 GM/100 ML IV.SOLN IVPB ONE (13:49)
[2018-03-25 15:20] LABS: INR 1.8
[2018-03-25 15:23] LABS: VBG Ionized Calcium 1.07 mmol/L (1.15-1.35)
--- NOTE | 2018-03-25 16:56 | Event Note ---
<Reyes Stout S - Last Filed: 03/25/18 16:46> Date of Encounter: 03/25/18 Time of Encounter: 11:00 Surgery consulted for questionable cholelithiasis on CT and the need for a cholecystostomy tube. Reviewed abdomen CT and US - does not appear to show gallbladder wall thickening or pericholecystic fluid. We do not believe there is evidence of cholecystitis or infection on imaging. Patient is intubated in ICU, and she does not respond to questions during my examination. On physical exam, her abdomen is soft and the patient does not wince with deep palpation. After reviewing the images and examining the patient, we do not think the patient would benefit from a cholecystectomy or cholecystostomy drain at this time. Surgery will sign off now, thank you for the consult. Please re-consult if further issues arise. <Willian Abreu E - Last Filed: 03/31/18 13:07> Date of Encounter: 03/31/18 Patient was seen and examined with the resident. She is currently intubated. Patient does not have any abdominal tenderness with palpation. The abdomen appears soft. There is positive bowel sounds. I would not recommend any type of drainage of the gallbladder or surgery at this time.
[2018-03-25 17:28] LABS: Basophils % 0.1 %; Hematocrit 22.1 % (35.3-44.9); Hemoglobin 7.4 g/dL (11.5-15.4); Immature Granulocytes % 1.5 % (0-4); Immature Platelets 9.8 % (1.1-6.1); Lymphocytes # 0.6 K/mcL (0.6-4.6); Mean Corpuscular HGB Conc 33.5 g/dL (31.6-35.5); Mean Corpuscular Hemoglobin 30.8 pg (28.0-33.3); Mean Corpuscular Volume 92.1 fL (83.0-100.0); Mean Platelet Volume 11.5 fL (9.4-12.4); Monocytes # 0.4 K/mcL (0.0-1.3); Monocytes % 4.8 %; Nucleated Red Blood Cells 0.4 /100 WBC (0); Red Cell Distribution Width 18.3 % (11.5-14.5); Segmented Neutrophils % 86.6 %
[2018-03-25 17:32] LABS: Neutrophils # 7.2 K/mcL (1.6-8.9); Platelet Count 44 K/mcL (140-400)
[2018-03-25 17:33] LABS: VBG Ionized Calcium 0.99 mmol/L (1.15-1.35)
[2018-03-25 17:54] LABS: Albumin 2.9 g/dL (3.5-5.7); Albumin/Globulin Ratio 2.2 (1.1-2.2); Bilirubin,Direct 0.3 mg/dL (0.0-0.2); Bilirubin,Indirect 0.5 mg/dL (0.0-1.2); Bilirubin,Total 0.8 mg/dL (0.3-1.0); Calcium 7.9 mg/dL (8.6-10.3); Globulin 1.3 g/dL (2.4-3.5); Magnesium 1.8 mg/dL (1.6-2.6); Phosphorous 2.6 mg/dL (2.7-4.5); Potassium 3.7 mEq/L (3.5-5.1); Total Protein 4.2 g/dL (6.4-8.9)
[2018-03-25 17:57] LABS: Platelet Estimate Decreased (Normal)
[2018-03-25 19:26] LABS: VBG Ionized Calcium 0.89 mmol/L (1.15-1.35)
[2018-03-25] MEDS ORDERED: Calcium Gluconate 1,000 MG/10 ML VIAL IVPB ONE (20:23)
[2018-03-25 20:59] LABS: VBG Ionized Calcium 0.93 mmol/L (1.15-1.35)
[2018-03-25] MEDS ORDERED: Vancomycin 500 MG in 0.9 % Sodium Chloride Mini Bag 100 ML IVPB ONE (21:00)
[2018-03-25 23:58] LABS: Alanine Aminotransferase 23 Units/L (7-52); Albumin 2.9 g/dL (3.5-5.7); Albumin/Globulin Ratio 2.2 (1.1-2.2); Alkaline Phosphatase 43 Units/L (34-104); Aspartate Amino Transferase 24 Units/L (13-39); BUN/Creatinine Ratio 27 (6-26); Bilirubin,Direct 0.4 mg/dL (0.0-0.2); Bilirubin,Indirect 0.5 mg/dL (0.0-1.2); Bilirubin,Total 0.9 mg/dL (0.3-1.0); Blood Urea Nitrogen 21 mg/dL (8-23); Calcium 8.7 mg/dL (8.6-10.3); Carbon Dioxide 20 mEq/L (23-29); Chloride 106 mEq/L (98-107); Globulin 1.3 g/dL (2.4-3.5); Glucose 150 mg/dL (70-105); Magnesium 1.8 mg/dL (1.6-2.6); Osmolality,Calculated 296 (280-300); Phosphorous 1.9 mg/dL (2.7-4.5); Potassium 3.7 mEq/L (3.5-5.1); Sodium 140 mEq/L (136-145); Total Protein 4.2 g/dL (6.4-8.9); eGFR For Non-African Americans > 60 (> 60)
[2018-03-26 00:01] LABS: Basophils % 0.1 %; Hematocrit 22.2 % (35.3-44.9); Hemoglobin 7.6 g/dL (11.5-15.4); Immature Granulocytes % 1.1 % (0-4); Lymphocytes # 0.4 K/mcL (0.6-4.6); Lymphocytes % 5.7 %; Mean Corpuscular HGB Conc 34.2 g/dL (31.6-35.5); Mean Corpuscular Hemoglobin 31.1 pg (28.0-33.3); Monocytes # 0.2 K/mcL (0.0-1.3); Monocytes % 3.2 %; Neutrophils # 6.5 K/mcL (1.6-8.9); Nucleated Red Blood Cells 0.6 /100 WBC (0); Red Blood Count 2.44 M/mcL (3.82-4.97); Red Cell Distribution Width 18.3 % (11.5-14.5); Segmented Neutrophils % 89.9 %
[2018-03-26 00:02] LABS: Platelet Count 40 K/mcL (140-400)
[2018-03-26 00:04] LABS: Platelet Estimate Marked Decrease (Normal)
[2018-03-26 00:14] LABS: VBG Ionized Calcium 0.81 mmol/L (1.15-1.35)
[2018-03-26] MEDS: PrismaSATE BGK 4/2.5 5,000 ML CRRT SCH ×6 (01:14→20:00)
[2018-03-26 01:31] LABS: VBG Ionized Calcium 1.06 mmol/L (1.15-1.35)
[2018-03-26] MEDS ORDERED: 0.9 % Sodium Chloride 250 ML ONE ×4 (02:14→15:29)
[2018-03-26 02:33] LABS: Prothrombin Time 22.8 Seconds (9.4-12.1)
[2018-03-26 02:35] LABS: Activated Partial Thrombo Time 51.1 Seconds (26.0-36.0)
[2018-03-26] MEDS: Calcium Chloride 4,000 MG in 0.9 % Sodium Chloride 1,000 ML CRRT SCH ×2 (02:36→13:00)
[2018-03-26 04:18] LABS: VBG Ionized Calcium 1.22 mmol/L (1.15-1.35)
[2018-03-26 04:27] LABS: ABG Base Excess -4 mEq/L (-2 to 3); ABG HCO3 18 mEq/L (21-27); ABG Oxygen Saturation 99 % (95-98); ABG PCO2 24 mmHg (35-45); ABG PH 7.49 pH Units (7.32-7.45); ABG PO2 120 mmHg (85-104); ABG TCO2 19 mEq/L (20-26); Blood Gas Modality ASSIST CONTROL; Blood Gas PEEP 5 cm H2O; Blood Gas Respiration Rate 16; Blood Gas VT 380 cc
[2018-03-26] MEDS: Levothyroxine Sodium 100 MCG VIAL IVP SCH (05:10)
[2018-03-26] MEDS: Pantoprazole 40 MG VIAL IVP SCH ×2 (05:10→16:42)
[2018-03-26] MEDS: Insulin LISPRO 300 UNITS/3 ML VIAL SQ SCH ×4 (05:12→23:40)
[2018-03-26] MEDS: Artificial Tears SOLN 15 ML BOTTLE BOTH EYES SCH ×6 (05:13→23:40)
[2018-03-26 05:42] LABS: Basophils % 0.3 %; Hematocrit 32.8 % (35.3-44.9); Hemoglobin 11.5 g/dL (11.5-15.4); Immature Granulocytes % 1.5 % (0-4); Immature Platelets 12.6 % (1.1-6.1); Lymphocytes # 0.7 K/mcL (0.6-4.6); Lymphocytes % 5.7 %; Mean Corpuscular HGB Conc 35.1 g/dL (31.6-35.5); Mean Corpuscular Volume 88.4 fL (83.0-100.0); Mean Platelet Volume 12.1 fL (9.4-12.4); Monocytes # 0.7 K/mcL (0.0-1.3); Monocytes % 5.8 %; Neutrophils # 10.1 K/mcL (1.6-8.9); Nucleated Red Blood Cells 0.9 /100 WBC (0); Red Blood Count 3.71 M/mcL (3.82-4.97); Red Cell Distribution Width 16.2 % (11.5-14.5); Segmented Neutrophils % 86.7 %
[2018-03-26 05:44] LABS: Platelet Count 47 K/mcL (140-400)
[2018-03-26 06:15] LABS: Alanine Aminotransferase 26 Units/L (7-52); Albumin 2.9 g/dL (3.5-5.7); Albumin/Globulin Ratio 2.1 (1.1-2.2); Alkaline Phosphatase 52 Units/L (34-104); Aspartate Amino Transferase 30 Units/L (13-39); BUN/Creatinine Ratio 25 (6-26); Bilirubin,Direct 0.5 mg/dL (0.0-0.2); Bilirubin,Indirect 0.9 mg/dL (0.0-1.2); Bilirubin,Total 1.4 mg/dL (0.3-1.0); Blood Urea Nitrogen 18 mg/dL (8-23); Calcium 10.5 mg/dL (8.6-10.3); Carbon Dioxide 20 mEq/L (23-29); Chloride 106 mEq/L (98-107); Globulin 1.4 g/dL (2.4-3.5); Glucose 98 mg/dL (70-105); Magnesium 1.8 mg/dL (1.6-2.6); Osmolality,Calculated 292 (280-300); Phosphorous 1.6 mg/dL (2.7-4.5); Potassium 3.5 mEq/L (3.5-5.1); Sodium 140 mEq/L (136-145); Total Protein 4.3 g/dL (6.4-8.9); eGFR For Non-African Americans > 60 (> 60)
[2018-03-26 06:19] LABS: Platelet Estimate Marked Decrease (Normal)
[2018-03-26] MEDS ORDERED: *HR* Heparin 5,000 UNIT/ML VIAL ONE (07:36)
[2018-03-26] MEDS: MetroNIDAZOLE 500 MG/100 ML 500 MG/100 ML BAG IVPB SCH ×3 (07:40→23:40)
[2018-03-26] MEDS: Cefepime HCl 2,000 MG in Water for inj. (sterile) 20 ML 20 ML IVP SCH ×2 (07:40→20:04)
[2018-03-26] MEDS: Hydrocortisone Sodium Succ 100 MG/2 ML VIAL IVP SCH ×3 (07:41→23:40)
[2018-03-26] MEDS: Nystatin OINT 15 GM TUBE TP SCH ×4 (07:42→20:05)
[2018-03-26] MEDS: Chlorhexidine Rinse 15 ML MOUTHWASH MM SCH ×2 (07:42→20:04)
--- NOTE | 2018-03-26 09:30 | Pulmonology Progress Note ---
<Galileo Lizama - Last Filed: 03/26/18 16:21> Date of Encounter: 03/26/18 Time of Encounter: 09:24 Assessment and Plan (1) Septic shock Current Visit: Yes Status: Acute On admission patient did not meet SIRS criteria with only tachycardia in the low 100s Throughout hospitalization patient had tachycardia, leukocytosis and tachypnea leading to intubation Lactic acid elevated 1.7-0.9-3.2-2.5-3.0-5.6-5.9-44.2-3.2 No known source of infection concern of cholecystitis, pneumonia, sinusitis, bacteremia Cholecystitis unlikely as U/S is negative and abdominal pain isn't present Requiring vasopressors currently vasopressin and levophed Blood cultures preliminary negative Respiratory infectious panel negative Urinalysis negative GI panel negative Negative US for cholecystitis Infectious disease on board appreciate recs Cefepime, Flagyl, and Vancomycin day 5 Continue vasopressors wean as possible continue to monitor for source of infection (2) Hemorrhagic shock Current Visit: Yes Status: Suspected Admitted from [facility] due to concerns for hypotension and decreased alertness BP on admission 99/48 Pt was initially started on Heparin drip with elevated troponins Hgb 03/23 was 8.1 currently 9.6 Platelets 55 Heparin drip was subsequently stopped required 2 pRBCs and 1 cryo overnight, Pt remains hypotensive on Levophed and vasopressin wean as tolerated Arterial line place for hemodynamic monitoring Continue to titrate pressors to maintain MAP>65 Monitor H&H and transfuse as needed Repeat CT head, chest, abdomen, and pelvis to evaluate for possible sources of bleeding found a large hematoma in her left thigh, IR tried to embolize but there was no bleed at time of procedure (3) Metabolic acidosis Current Visit: Yes Status: Acute origianlly seen with Non-anion gap metabolic acidosis Received 4 amps of Sodium Bicarb Unable to adequately compensate from respiratory standpoint - elected to intubate pt Serial ABGs Continue to monitor 03/26 ABG 7.49, 24, 120, 28, 19, 99, -4 TV decreased (4) Lactic acidosis Current Visit: Yes Status: Acute As above for septic shock - Likely hypoperfusion however the etiology of this is unclear (5) Elevated troponin Current Visit: Yes Status: Acute Initial troponin in emergency department 0.05 -> 0.17 -> 0.19 Echo results as follows: - LVEF 65-70% - Normal LV chamber size, wall thickness, and systolic function - Mild LV diastolic dysfunction - mild aortic and tricuspic regurg - No pulmonary HTN - IVC normal dimensions and inspiratory collapse Cardio is on board - ACS unlikely. More likely demand ischemia related to hypotension Initially started on Heparin drip but due to decrease in Hgb from 11-->8 from 03/22 to 03/23 the heparin drip was stopped (6) Decreased urination Current Visit: Yes Status: Acute Nephrology consulted appreciate recs SCr downtrendiing .73 today continue CRRT Fluid overload now a concern, will start CVVH with goal UF of 100cc/hr if tolerated Continue 24hr urine for CrCl Avoid nephrotoxins if possible (7) Schizoaffective disorder Current Visit: Yes Status: Chronic chronic Qualifiers: Schizoaffective disorder type: unspecified Qualified Code(s): F25.9 - Schiz oaffective disorder, unspecified (8) Hypothyroidism Current Visit: Yes Status: Chronic Home synthroid Qualifiers: Hypothyroidism type: unspecified Qualified Code(s): E03.9 - Hypothyroidism, unspecified (9) DVT prophylaxis Current Visit: Yes Status: Acute EPCDs heparin held due to bleed concern (10) Goals of care, counseling/discussion Current Visit: Yes Status: Acute Patient currently intubated and unresponsive Currently has 3 living siblings. One sister, who was her power if sports attorney, 1 week ago. Current siblings believe that their brother in law is now the power of sports attorney but they are unsure. We are requesting records from patient's [facility]. Current siblings do not have a relationship with the patient but were told being next of kin they could make medical decisions they believe would be in the patients best interest if there is no POA. another sister is coming in to discuss. They will reach out to brother but do not believe he will want to be involved with decision making. Patient has 2 estra nged children and siblings do not know how to contact them. Update: Spoke with Brother in law, Tyrese Sawyer, who is current POA and he will arrive come into the ICU around 10:30 to discuss goals of care. In the meantime the POA stated that the patient does not any heroic efforts to sustain her life. We spoke about changing her code status. She was changed to [id number] arrest per POA's requests stating "it is what the patient would want." POA understands that at this time no care will be withdrawn but if patient were to go into cardiac arrest resuscitation efforts would not be pursued. He is still planning on arriving tomorrow at 10:30 to further discuss goals of care. He states he will contact the family and see if they want to be present at the family meeting. Subjective Principal diagnosis: Hypotension Interval history: Patient required 2 pRBCs and 1 unit of cyro overnight. platelets are still low at 47 but there were no platelets available at that time. a new A line was placed. Objective PUL Vital signs: Last Vital Signs Temp 96.2 F L 03/26/18 06:54 Pulse 80 03/26/18 09:00 Resp 20 03/26/18 09:00 BP 118/47 03/26/18 09:00 Pulse Ox 100 03/26/18 09:00 General appearance: other (intubated and sedated, minimally responsive, not following commands at this time) Auscultation: bilateral: wheezes Cardiovascular: regular rate and rhythm Gastrointestinal: normoactive bowel sounds, soft, non-tender, non-distended Integumentary: other (L thigh hemaatomas 1 medial and 1 lateral) Extremities: cool unable to assess due to mental status Ventilator Settings Ventilator Settings: Ventilator Settings, Last 8 Hours Ventilator Tidal Volume 380 Setting Ventilator Tidal Volume 380 Setting Ventilator Tidal Volume 380 Setting Ventilator Tidal Volume 380 Setting Ventilator Tidal Volume 380 Setting Ventilator Tidal Volume 380 Setting Ventilator Tidal Volume 380 Setting Ventilator Tidal Volume 380 Setting Ventilator Tidal Volume 380 Setting Ventilator Tidal Volume 380 Setting Ventilator Tidal Volume 380 Setting Ventilator Tidal Volume 380 Setting Ventilator Tidal Volume 380 Setting Ventilator Respiratory Rate 16 Setting Ventilator Respiratory Rate 16 Setting Ventilator Respiratory Rate 16 Setting Ventilator Respiratory Rate 16 Setting Ventilator Respiratory Rate 16 Setting Ventilator Respiratory Rate 16 Setting Ventilator Respiratory Rate 16 Setting Ventilator Respiratory Rate 16 Setting Ventilator Respiratory Rate 16 Setting Ventilator Respiratory Rate 16 Setting Ventilator Respiratory Rate 16 Setting Ventilator Respiratory Rate 16 Setting Ventilator Respiratory Rate 16 Setting Actual Respiratory Rate 20 Actual Respiratory Rate 24 Actual Respiratory Rate 20 Actual Respiratory Rate 18 Actual Respiratory Rate 18 Actual Respiratory Rate 22 Actual Respiratory Rate 18 Actual Respiratory Rate 18 Actual Respiratory Rate 18 Actual Respiratory Rate 22 Actual Respiratory Rate 20 Positive End Expiratory 5 Pressure Positive End Expiratory 5 Pressure Positive End Expiratory 5 Pressure Positive End Expiratory 5 Pressure Positive End Expiratory 5 Pressure Positive End Expiratory 5 Pressure Positive End Expiratory 5 Pressure Positive End Expiratory 5 Pressure Positive End Expiratory 5 Pressure Positive End Expiratory 5 Pressure Positive End Expiratory 5 Pressure Positive End Expiratory 5 Pressure Positive End Expiratory 5 Pressure Peak Inspiratory Airway 14 Pressure Peak Inspiratory Airway 13 Pressure Peak Inspiratory Airway 20 Pressure Peak Inspiratory Airway 17 Pressure Peak Inspiratory Airway 17 Pressure Peak Inspiratory Airway 17 Pressure Peak Inspiratory Airway 24 Pressure Peak Inspiratory Airway 24 Pressure Peak Inspiratory Airway 19 Pressure Peak Inspiratory Airway 19 Pressure Peak Inspiratory Airway 19 Pressure Results - Laboratory Findings CBC and BMP: 03/26/18 10:10 03/26/18 13:13 ABG ABG pH 7.49 pH Units (7.32-7.45) H 03/26/18 04:24 ABG pCO2 24 mmHg (35-45) L 03/26/18 04:24 ABG pO2 120 mmHg (85-104) H 03/26/18 04:24 ABG O2 Saturation 99 % (95-98) H 03/26/18 04:24 PT/INR, D-dimer PT 22.8 Seconds (9.4-12.1) H 03/26/18 02:10 Abnormal lab findings: Abnormal lab results WBC 11.7 K/mcL (4.3-11.1) H D 03/26/18 05:30 RBC 3.71 M/mcL (3.82-4.97) L 03/26/18 05:30 Hct 32.8 % (35.3-44.9) L 03/26/18 05:30 RDW 16.2 % (11.5-14.5) H 03/26/18 05:30 Plt Count 47 K/mcL (140-400) L 03/26/18 05:30 Band Neutrophils % 16.0 % (0-4) H 03/23/18 11:09 Neutrophils # 10.1 K/mcL (1.6-8.9) H 03/26/18 05:30 Nucleated RBCs/100 WBC 0.9 /100 WBC (0) H 03/26/18 05:30 Platelet Estimate Marked Decrease (Normal) L 03/26/18 05:30 Immature Plt Fraction 12.6 % (1.1-6.1) H 03/26/18 05:30 Anisocytosis 1+ (Not Present) A 03/23/18 13:25 Microcytosis Present (Not Present) A 03/23/18 13:25 Macrocytosis Present (Not Present) A 03/23/18 13:25 PT 22.8 Seconds (9.4-12.1) H 03/26/18 02:10 APTT 46.3 Seconds (26.0-36.0) H 03/26/18 05:45 Fibrinogen 113 mg/dL (169-393) L 03/26/18 02:10 Heparin Anti-Xa, Unfract 0.81 IU/mL (0.30-0.70) H 03/23/18 03:06 ABG pH 7.49 pH Units (7.32-7.45) H 03/26/18 04:24 ABG pCO2 24 mmHg (35-45) L 03/26/18 04:24 ABG pO2 120 mmHg (85-104) H 03/26/18 04:24 ABG HCO3 18 mEq/L (21-27) L 03/26/18 04:24 ABG Total CO2 19 mEq/L (20-26) L 03/26/18 04:24 ABG O2 Saturation 99 % (95-98) H 03/26/18 04:24 ABG Base Excess -4 mEq/L (-2 to 3) L 03/26/18 04:24 Carbon Dioxide 20 mEq/L (23-29) L 03/26/18 05:45 POC Glucose 118 mg/dL (70-99) H 03/24/18 23:07 Lactic Acid 3.2 mmol/L (0.5-2.2) H 03/26/18 05:30 Calcium 10.5 mg/dL (8.6-10.3) H 03/26/18 05:45 Phosphorus 1.6 mg/dL (2.7-4.5) L 03/26/18 05:45 Total Bilirubin 1.4 mg/dL (0.3-1.0) H 03/26/18 05:45 Direct Bilirubin 0.5 mg/dL (0.0-0.2) H 03/26/18 05:45 Lactate Dehydrogenase 129 Units/L (140-271) L 03/23/18 07:51 Troponin I 0.19 ng/mL (< 0.04) H* 03/22/18 08:05 Serum Total Protein 4.3 g/dL (6.4-8.9) L 03/26/18 05:45 Albumin 2.9 g/dL (3.5-5.7) L 03/26/18 05:45 Globulin 1.4 g/dL (2.4-3.5) L 03/26/18 05:45 Amylase 28 Units/L (29-103) L 03/24/18 03:00 Lipase 10 Units/L (11-82) L 03/24/18 03:00 TSH 0.169 mcIU/mL (0.340-5.600) L 03/22/18 08:05 Free T3 2.00 pg/mL (2.50-3.90) L 03/22/18 08:05 Arterial Blood Ionized Calcium 1.01 mmol/L (1.15-1.35) L 03/23/18 20:08 Urine Ketones Trace mg/dL (Negative) H 03/21/18 22:17 Urine Bilirubin Large (Negative) H 03/21/18 22:17 Ur Squamous Epith Cells Many per lpf (None-Few) H 03/21/18 22:17 Vancomycin Trough 16 mcg/mL (5-10) H 03/25/18 17:10 - Microbiology Findings Microbiology Findings: Microbiology, Last 48 Hours 03/24/18 15:45 Blood Culture - Preliminary Central Venous Catheter Culture is incubating and being continuously monitored for growth. Final report to follow. 03/24/18 15:45 Blood Culture - Preliminary Central Venous Catheter Culture is incubating and being continuously monitored for growth. Final report to follow. 03/24/18 15:40 Blood Culture - Preliminary Peripheral Venipuncture Culture is incubating and being continuously monitored for growth. Final report to follow. 03/24/18 15:36 Blood Culture - Preliminary Peripheral Venipuncture Culture is incubating and being continuously monitor ed for growth. Final report to follow. - Clinical Findings Intake & Output: Intake & Output 03/25/18 03/26/18 03/26/18 23:59 07:59 15:59 Intake Total 1160.9 / 1160.9 1871.9 / 1871.9 447.9 / 447.9 Output Total 1481 / 1481 2364 / 2364 625 / 625 Balance -320.1 / -320.1 -492.1 / -492.1 -177.1 / -177.1 Consult Discharge Plan - Plan Referrals: NONE,PCP [Primary Care Provider] - <Pedro Rodriguez S - Last Filed: 03/26/18 18:52> Date of Encounter: 03/26/18 Objective PUL Vital signs: Last Vital Signs Temp 96.0 F L 03/26/18 12:00 Pulse 49 03/26/18 18:00 Resp 16 03/26/18 18:00 BP 105/44 03/26/18 18:00 Pulse Ox 100 03/26/18 18:00 Ventilator Settings Ventilator Settings: Ventilator Settings, Last 8 Hours Ventilator Tidal Volume 380 Setting Ventilator Tidal Volume 380 Setting Ventilator Tidal Volume 380 Setting Ventilator Tidal Volume 380 Setting Ventilator Tidal Volume 380 Setting Ventilator Tidal Volume 380 Setting Ventilator Tidal Volume 380 Setting Ventilator Tidal Volume 380 Setting Ventilator Tidal Volume 320 Setting Ventilator Tidal Volume 380 Setting Ventilator Respiratory Rate 16 Setting Ventilator Respiratory Rate 16 Setting Ventilator Respiratory Rate 16 Setting Ventilator Respiratory Rate 16 Setting Ventilator Respiratory Rate 16 Setting Ventilator Respiratory Rate 16 Setting Ventilator Respiratory Rate 16 Setting Ventilator Respiratory Rate 16 Setting Ventilator Respiratory Rate 16 Setting Ventilator Respiratory Rate 16 Setting Actual Respiratory Rate 17 Actual Respiratory Rate 16 Actual Respiratory Rate 19 Actual Respiratory Rate 18 Actual Respiratory Rate 20 Actual Respiratory Rate 20 Actual Respiratory Rate 21 Actual Respiratory Rate 23 Actual Respiratory Rate 21 Actual Respiratory Rate 20 Positive End Expiratory 5 Pressure Positive End Expiratory 5 Pressure Positive End Expiratory 5 Pressure Positive End Expiratory 5 Pressure Positive End Expiratory 5 Pressure Positive End Expiratory 5 Pressure Positive End Expiratory 5 Pressure Positive End Expiratory 5 Pressure Positive End Expiratory 5 Pressure Positive End Expiratory 5 Pressure Peak Inspiratory Airway 15 Pressure Peak Inspiratory Airway 16 Pressure Peak Inspiratory Airway 15 Pressure Peak Inspiratory Airway 14 Pressure Peak Inspiratory Airway 17 Pressure Peak Inspiratory Airway 14 Pressure Peak Inspiratory Airway 13 Pressure Peak Inspiratory Airway 12 Pressure Peak Inspiratory Airway 12 Pressure Peak Inspiratory Airway 15 Pressure Results - Laboratory Findings CBC and BMP: 03/26/18 17:45 03/26/18 17:45 ABG ABG pH 7.49 pH Units (7.32-7.45) H 03/26/18 04:24 ABG pCO2 24 mmHg (35-45) L 03/26/18 04:24 ABG pO2 120 mmHg (85-104) H 03/26/18 04:24 ABG O2 Saturation 99 % (95-98) H 03/26/18 04:24 PT/INR, D-dimer PT 20.4 Seconds (9.4-12.1) H 03/26/18 10:10 Abnormal lab findings: Abnormal lab results RBC 3.29 M/mcL (3.82-4.97) L 03/26/18 17:45 Hgb 10.3 g/dL (11.5-15.4) L 03/26/18 17:45 Hct 29.0 % (35.3-44.9) L 03/26/18 17:45 RDW 16.2 % (11.5-14.5) H 03/26/18 17:45 Plt Count 57 K/mcL (140-400) L D 03/26/18 17:45 Band Neutrophils % 16.0 % (0-4) H 03/23/18 11:09 Lymphocytes # 0.4 K/mcL (0.6-4.6) L 03/26/18 17:45 Nucleated RBCs/100 WBC 0.9 /100 WBC (0) H 03/26/18 17:45 Platelet Estimate Marked Decrease (Normal) L 03/26/18 05:30 Immature Plt Fraction 8.0 % (1.1-6.1) H 03/26/18 17:45 Anisocytosis 1+ (Not Present) A 03/23/18 13:25 Microcytosis Present (Not Present) A 03/23/18 13:25 Macrocytosis Present (Not Present) A 03/23/18 13:25 PT 20.4 Seconds (9.4-12.1) H 03/26/18 10:10 APTT 38.3 Seconds (26.0-36.0) H D 03/26/18 17:45 Fibrinogen 113 mg/dL (169-393) L 03/26/18 02:10 Heparin Anti-Xa, Unfract 0.22 IU/mL (0.30-0.70) L 03/26/18 13:13 ABG pH 7.49 pH Units (7.32-7.45) H 03/26/18 04:24 ABG pCO2 24 mmHg (35-45) L 03/26/18 04:24 ABG pO2 120 mmHg (85-104) H 03/26/18 04:24 ABG HCO3 18 mEq/L (21-27) L 03/26/18 04:24 ABG Total CO2 19 mEq/L (20-26) L 03/26/18 04:24 ABG O2 Saturation 99 % (95-98) H 03/26/18 04:24 ABG Base Excess -4 mEq/L (-2 to 3) L 03/26/18 04:24 Potassium 3.3 mEq/L (3.5-5.1) L 03/26/18 17:45 Chloride 108 mEq/L (98-107) H 03/26/18 17:45 Carbon Dioxide 21 mEq/L (23-29) L 03/26/18 17:45 Glucose 171 mg/dL (70-105) H 03/26/18 17:45 POC Glucose 118 mg/dL (70-99) H 03/24/18 23:07 Calcium 11.4 mg/dL (8.6-10.3) H 03/26/18 17:45 Venous Ioniz Calcium 1.59 mmol/L (1.15-1.35) H 03/26/18 17:54 Phosphorus 1.7 mg/dL (2.7-4.5) L 03/26/18 17:45 Total Bilirubin 1.4 mg/dL (0.3-1.0) H 03/26/18 17:45 Direct Bilirubin 0.7 mg/dL (0.0-0.2) H 03/26/18 17:45 Lactate Dehydrogenase 129 Units/L (140-271) L 03/23/18 07:51 Troponin I 0.19 ng/mL (< 0.04) H* 03/22/18 08:05 Serum Total Protein 4.6 g/dL (6.4-8.9) L 03/26/18 17:45 Albumin 2.9 g/dL (3.5-5.7) L 03/26/18 17:45 Globulin 1.7 g/dL (2.4-3.5) L 03/26/18 17:45 Amylase 28 Units/L (29-103) L 03/24/18 03:00 Lipase 10 Units/L (11-82) L 03/24/18 03:00 TSH 0.169 mcIU/mL (0.340-5.600) L 03/22/18 08:05 Free T3 2.00 pg/mL (2.50-3.90) L 03/22/18 08:05 Arterial Blood Ionized Calcium 1.01 mmol/L (1.15-1.35) L 03/23/18 20:08 Urine Ketones Trace mg/dL (Negative) H 03/21/18 22:17 Urine Bilirubin Large (Negative) H 03/21/18 22:17 Ur Squamous Epith Cells Many per lpf (None-Few) H 03/21/18 22:17 Urine Total Volume 0.11 Liters (0.60-1.60) L 03/26/18 07:50 Ur Creatinine 24 Hour 88 mg/day (600-1800) L 03/26/18 07:50 Vancomycin Trough 16 mcg/mL (5-10) H 03/25/18 17:10 - Microbiology Findings Microbiology Findings: Microbiology, Last 48 Hours 03/24/18 15:45 Blood Culture - Preliminary Central Venous Catheter Culture is incubating and being continuously monitored for growth. Final report to follow. 03/24/18 15:45 Blood Culture - Preliminary Central Venous Catheter Culture is incubating and being continuously monitored for growth. Final report to follow. 03/24/18 15:40 Blood Culture - Preliminary Peripheral Venipuncture Culture is incubating and being continuously monitored for growth. Final report to follow. 03/24/18 15:36 Blood Culture - Preliminary Peripheral Venipuncture Culture is incubating and being continuously monitored for growth. Final report to follow. - Clinical Findings Intake & Output: Intake & Output 03/26/18 03/26/18 03/26/18 07:59 15:59 23:59 Intake Total 1871.9 / 1871.9 1537.8 / 1537.8 482.8 / 482.8 Output Total 2364 / 2364 1822 / 1822 637 / 637 Balance -492.1 / -492.1 -284.2 / -284.2 -154.2 / -154.2 - Attending Attestation - Attending Attestation Attending Attestation I saw and evaluated this patient and my medical decision-making was reviewed with the Resident Physician. I agree with the documented findings, disposition and treatment plan as described except to the extent set forth below. We independently had [id number] contact with the patient I spent 35 minutes of Critical Care time with this patient. It involved decision making of high complexity to assess, manipulate, and support vital organ system failure and/or to prevent further life threatening deterioration of the patient's condition. The time involved in the performance of separately reportable procedures was not counted toward critical care time. Patient seen and examined at bedside Labs, radiology, chart personally reviewed. Management was reviewed during multidisciplinary critical care rounds. VENEER SAWYER: Patient has with altered mental status drowsy but arousable can tell where she is at she is AO X 1 is worse than her baseline looks like encephalopathy secondary to hypertension no focal neurological deficit CT head did not show any acute findings 03/23 patient is more alert than yesterday following commands no acute focal neurological deficit low concern for stroke since patient has this chronic sinusitis concern for meningitis will increase the antibiotic dose to meningitis coverage cannot do an lumbar puncture because of her underlying coagulopathy and she was recently on heparin for ACS 03/24 patient is spontaneously opening her eyes more alert this the best I have seen during her hospital stay. 03/25 patient is conscious opening her eyes but she is not following commands 03/26 patient is more lethargic today not Spontaneously Opening Her Eyes but with Loud Verbal Commands She Occasionally Opens Eyes most likely due to metabolic encephalopathy pupils equal reactive to light will have low threshold for VENEER SAWYER imaging close every hour neuro checks. Because of the thrombocytopenia patient has high chance of intracerebral bleed Pulm: Patient has acceptable V/Q mismatch with acceptable oxygenation and ventilation no evidence of pneumonia patient have some possible chronic sinus infection will get CT sinuses to look for any collection that can be drained. 03/23 patient has acceptable oxygenation and ventilation patient has worsening metabolic acidosis which she cannot respiratory compensate so I decided to intubate and mechanically ventilate her and to correct metabolic acidosis . 03/24 patient has acceptable oxygenation and ventilation minimal ventilatory support patient still has unresolved metabolic acidosis due to her acute kidney injury. 03/25 Patient has acceptable oxygenation and ventilation. 03/26 patient has acceptable oxygenation and ventilation adjusted the tidal volume as patient has compensated metabolic acidosis with respiratory alkalosis Cards: Patient is in shock most likely sepsis versus cardiogenic complicated by some volume depletion to keep the vasopressors and the map around 65 will wait for transthoracic echocardiogram will trend troponins we will look for other sources of sepsis. 03/23 there is no evidence of cardiac in shock and not convinced about septic shock either with his drop in hemoglobin with patient on heparin for ACS and concerned about more of hemorrhagic shock stopped the heparin when I came in for my shift . I sent her for CT chest abdomen pelvis and thigh for dissection protocol found to have a large intramuscular hematoma in her left thigh with a bleeding vessel I spoke with interventional radiologist will try to call coil the bleeding vessel. I went over echocardiogram personally with a non-lime sludge mixer which showed hyperdynamic left ventricle with good right ventricle function with some inspiratory collapse of IVC more pointing towards hypokalemia 03/24 after the yesterday events of discovering the left-sided intramuscular hematoma in the thigh mostly in the abductor muscle region most likely is due to hemorrhagic shock looks like the bleeding is stopped patient is still hypoten sive now I am concerned for any septic shock in the background we will consult infectious disease for further input. As there is no obvious source of infection except for the chronic sinusitis 03/25 patient still in shock is no obvious source of infection repeat echo showed EF percent with artery is not visualized. To liberate vasopressors as tolerated 03/26 shock is getting a lot better she is off vasopressin and her Levophed coming down . FEN-GI: Diet according to nutrition. Renal: Patient has poor urine output in the range of Anuria with worsening creatinine and fluid overload patient will be started on CVVH.. ID: To look for other source for sepsis due to CT sinuses and CT abdomen and pelvis without any VENEER SAWYER infection to continue broad-spectrum antibiotics to follow cultures. 03/23 no obvious source of sepsis will cover with broad-spectrum antibiotics will do meningitis coverage. If after correcting the hyponatremia and the bleeding if still she is in shock will consult infectious disease. 03/24 after correcting the hemorrhagic shock patient still on vasopressors we will try to give more colloids will consult ID to have their input to look for any other source for infection. 03/25 ID consulted to continue broad-spectrum antibiotics no obvious source of infection. 03/26 cultures still today is negative to continue broad-spectrum antibiotics Heme/Onc: Patient looks like DIC but there is no obvious reason for this DIC u nless there is any septic focus to correct coagulopathy. To replete the blood loss anemia with PRBC. Low concern for TTP. EPCD . Heparin stopped 03/24 patient coagulopathy corrected and patient has some thrombocytopenia will keep the platelets about 80,000 as patient might have some slow venous oozing 03/25 patient be a slight DIC a slow trending down hemoglobin will replace platelets probably she will need PRBCs to keep platelets above 50,000 and fibrinogen greater than 150. The hemoglobin is keep trending down we will need to reimage her. 03/26 patient is thrombocytopenic fibrinogen is low will replace accordingly. Transfuse PRBC if hemoglobin drops below 7 Endo: Glucose Monitored Integ/MSK: Skin Care per routine ICU Nursing Protocol to prevent ulcers. Lines: All lines examined without evidence of infection : Dispo: Critically ill , Family updated . CODE:[id number]
[2018-03-26 09:44] LABS: VBG Ionized Calcium 1.19 mmol/L (1.15-1.35)
[2018-03-26 10:21] LABS: Basophils % 0.3 %; Eosinophils % 0.1 %; Hematocrit 31.3 % (35.3-44.9); Immature Granulocytes % 1.2 % (0-4); Lymphocytes # 0.3 K/mcL (0.6-4.6); Lymphocytes % 4.7 %; Mean Corpuscular HGB Conc 34.5 g/dL (31.6-35.5); Mean Corpuscular Hemoglobin 30.6 pg (28.0-33.3); Mean Corpuscular Volume 88.7 fL (83.0-100.0); Mean Platelet Volume 12.9 fL (9.4-12.4); Monocytes # 0.2 K/mcL (0.0-1.3); Monocytes % 3.1 %; Neutrophils # 6.2 K/mcL (1.6-8.9); Nucleated Red Blood Cells 0.9 /100 WBC (0); Red Blood Count 3.53 M/mcL (3.82-4.97); Red Cell Distribution Width 16.2 % (11.5-14.5); Segmented Neutrophils % 90.6 %
[2018-03-26 10:22] LABS: Hemoglobin 10.8 g/dL (11.5-15.4); Platelet Count 34 K/mcL (140-400)
[2018-03-26 10:30] LABS: INR 1.8; Prothrombin Time 20.4 Seconds (9.4-12.1)
[2018-03-26] MEDS: EPINEPHrine 1 MG in D5% in Water 250 ML IVC SCH (12:11)
[2018-03-26 12:32] LABS: Total Volume 24 Hour,Urine 0.11 Liters (0.60-1.60)
[2018-03-26 13:41] LABS: Alanine Aminotransferase 20 Units/L (7-52); Albumin 2.9 g/dL (3.5-5.7); Albumin/Globulin Ratio 1.9 (1.1-2.2); Alkaline Phosphatase 37 Units/L (34-104); Aspartate Amino Transferase 31 Units/L (13-39); BUN/Creatinine Ratio 27 (6-26); Bilirubin,Direct 0.8 mg/dL (0.0-0.2); Bilirubin,Indirect 0.7 mg/dL (0.0-1.2); Bilirubin,Total 1.5 mg/dL (0.3-1.0); Blood Urea Nitrogen 18 mg/dL (8-23); Calcium 11.7 mg/dL (8.6-10.3); Carbon Dioxide 20 mEq/L (23-29); Chloride 108 mEq/L (98-107); Globulin 1.5 g/dL (2.4-3.5); Glucose 155 mg/dL (70-105); Magnesium 1.8 mg/dL (1.6-2.6); Osmolality,Calculated 293 (280-300); Phosphorous 1.7 mg/dL (2.7-4.5); Potassium 3.3 mEq/L (3.5-5.1); Sodium 139 mEq/L (136-145); Total Protein 4.4 g/dL (6.4-8.9); eGFR For Non-African Americans > 60 (> 60)
[2018-03-26] MEDS ORDERED: Aminoglycoside Consult 1 EACH MC ONE (13:43)
[2018-03-26 13:55] LABS: Activated Partial Thrombo Time 129.9 Seconds (26.0-36.0)
[2018-03-26 13:59] LABS: Heparin anti-factor XA UFH 0.22 IU/mL (0.30-0.70)
--- NOTE | 2018-03-26 14:18 | Nephrology Progress Note ---
Date of Encounter: 03/26/18 Time of Encounter: 12:00 - Assessment and Plan (1) BREE (acute kidney injury) Current Visit: Yes Status: Acute SCr appropriately improved on CVVH, will continue for fluid overload managment pending final decisions on goals of care per family. Now DNRA UOP still not impressive at 110cc in the past 24hrs Continue 24hr urine for CrCl pending resulkt if much urine collected Avoid nephrotoxins if possible Can bolus with albumin 25g x 1 to maintain oncotic pressue for UF goal of up to 100cc/hr Critical time spent: 35mins (2) Oliguria and anuria Current Visit: Yes Status: Acute See above (3) Metabolic acidosis Current Visit: Yes Status: Acute Should improve on CRRT (4) Hemorrhagic shock Current Visit: Yes Status: Suspected per primary team (5) Septic shock Current Visit: Yes Status: Acute per primary team Subjective Principal diagnosis: Hypotension Interval history: Interim noted pt seen and examined still intubated and awake/minimally responsive on CVVH. Remains on pressor support. Per nurse, received cryo and platelets for high PTT. citrate currently on hold due to high readings. Objective - Vital Signs Vital signs: Vital Signs Temp Pulse Resp BP Pulse Ox 03/26/18 13:00 76 20 120/40 99 03/26/18 12:00 96.0 F L 62 23 107/39 100 03/26/18 11:37 21 98 03/26/18 11:00 60 20 116/41 98 03/26/18 10:00 85 20 106/42 98 03/26/18 09:30 96.0 F L 85 25 114/41 98 03/26/18 09:00 80 20 118/47 100 03/26/18 08:03 25 93 03/26/18 08:00 96.8 F L 73 20 95/49 100 03/26/18 06:54 96.2 F L 65 22 97/50 100 03/26/18 06:48 67 20 92/48 100 03/26/18 06:00 72 19 91/45 100 03/26/18 05:35 19 91/42 100 03/26/18 05:00 64 18 103/96 100 03/26/18 04:05 18 92/40 100 03/26/18 04:00 96.2 F L 61 16 92/40 99 03/26/18 03:22 96.3 F L 59 16 99 03/26/18 03:08 62 03/26/18 03:00 64 18 89/41 100 03/26/18 02:40 96.2 F L 65 20 86/38 100 03/26/18 02:34 96.6 F L 99 20 93/42 03/26/18 02:16 94 F L 78 22 85/38 99 03/26/18 02:00 96.6 F L 86 23 88/40 100 03/26/18 01:34 20 100 03/26/18 01:00 76 21 77/68 100 03/26/18 00:00 94 F L 69 21 93/40 100 03/25/18 23:26 23 100 03/25/18 23:06 73 03/25/18 23:00 79 26 97/45 100 03/25/18 22:00 79 18 90/43 100 03/25/18 21:36 18 82/42 100 03/25/18 21:00 80 20 93/44 100 03/25/18 20:00 92.5 F L 60 23 91/43 99 03/25/18 19:53 62 03/25/18 19:44 19 100/44 99 03/25/18 18:59 62 19 110/46 100 03/25/18 18:00 61 18 91/43 99 03/25/18 17:54 22 100 03/25/18 17:00 95.9 F L 71 26 107/48 100 03/25/18 16:00 78 25 119/55 100 03/25/18 15:42 27 100 03/25/18 15:00 81 29 120/51 100 Intake and Output 03/25/18 03/26/18 03/26/18 23:59 07:59 15:59 Intake Total 1160.9 / 1160.9 1871.9 / 1871.9 1292.4 / 1292.4 Output Total 1481 / 1481 2364 / 2364 1423 / 1423 Balance -320.1 / -320.1 -492.1 / -492.1 -130.6 / -130.6 Intake: IV Fluids 1047.9 / 1047.9 1140.9 / 1140.9 800.4 / 800.4 Calcium Chloride 4,000 MG In 0. 512.4 / 512.4 847.9 / 847.9 630.8 / 630.8 9 % Sodium Chloride 1,000 ML @ 40 mls/hr CRRT [facility] Rx#: [id number] PrismaSATE BGK 4/2.5 5,000 ML @ 0 / 0 0 / 0 1000 mls/hr CR[facility] Rx#: [id number] Vasostrict 40 UNIT In Dextrose 14.2 / 14.2 0 / 0 5% 100 ML @ 0.03 UNIT/MIN 4.59 mls/hr IV [id number] [facility] Rx#: [id number] Levophed 8 MG In Dextrose 5% 66.3 / 66.3 73 / 73 49.6 / 49.6 250 ML @ 3 MCG/MIN 5.81 mls/hr IVC [facility] Rx#:[id number] Maxipime 2,000 MG In Water for 20 / 20 20 / 20 inj. (sterile) 20 ML @ 300 mls/ hr IVP Q12H [facility] Rx#:[id number] Calcium Gluconate 2,000 MG In 0 230 / 230 120 / 120 .9 % Sodium Chloride 100 ML @ 220 mls/hr IVPB ONCE PRN Rx#: [id number] Flagyl Premix 500 MG/100 ML 500 105 / 105 100 / 100 100 / 100 mg In 100 ml @ 100 mls/hr IVPB Q8HR [facility] Rx#:[id number] Vancocin 500 MG In 0.9 % Sodium 100 / 100 Chloride (Mini-Bag +) 100 ML @ 100 mls/hr IVPB ONCE ONE Rx#: [id number] Oral 0 / 0 0 / 0 Tube Feeding 63 / 63 81 / 81 62 / 62 Blood Product 650 / 650 300 / 300 Cryoprecipitate Pooled Unit 0 / 0 90 / 90 [id number] Platelet Pheresis Lp Irr 2nd 210 / 210 Unit [id number] Rbcs Leuko Poor As-1 Unit 325 / 325 [id number] Rbcs Leuko Poor As-3 Ph Unit 325 / 325 [id number] Intake, Autotransfusion Amount 40 / 40 Free Water 50 / 50 90 / 90 Output: Katia 1456 / 1456 2354 / 2354 1391 / 1391 Catheter 32 / 32 Other: Blood Glucose* 122 116 135 - General Appearance General appearance: Present: chronically ill, intubated EENT: Present: ATNC, mucous membranes moist Neck: Present: no JVD, supple Respiratory: Present: course breath sounds Cardiology: Present: edema (LE/UE with seepage bilat), normal S1, normal S2 Dialysis Vascular Access: Venous Catheter (temp line) Gastrointestinal: Present: no tenderness, no guarding Integumentary: Present: warm and dry Additional Comments: minimally responsive Musculoskeletal: Present: no deformities Additional Comments: cannot assess - Lab 03/26/18 17:45 03/26/18 23:33 Most recent lab results ABG pH 7.49 pH Units (7.32-7.45) H 03/26/18 04:24 ABG pCO2 24 mmHg (35-45) L 03/26/18 04:24 ABG pO2 120 mmHg (85-104) H 03/26/18 04:24 ABG HCO3 18 mEq/L (21-27) L 03/26/18 04:24 ABG O2 Saturation 99 % (95-98) H 03/26/18 04:24 Calcium 11.7 mg/dL (8.6-10.3) H 03/26/18 13:13 Phosphorus 1.7 mg/dL (2.7-4.5) L 03/26/18 13:13 Magnesium 1.8 mg/dL (1.6-2.6) 03/26/18 13:13 Urine Creatinine 80 mg/dL 03/26/18 07:50 Consult Discharge Plan - Plan Referrals: NONE,PCP [Primary Care Provider] -
[2018-03-26] MEDS ORDERED: *HR* Atropine Sulfate 1 MG/10 ML SYRINGE ONE (15:43)
[2018-03-26] MEDS ORDERED: Albumin 25% 25gram/100mL 25 GM/100 ML IV.SOLN IVPB ONE (17:37)
[2018-03-26 17:55] LABS: Hemoglobin 10.3 g/dL (11.5-15.4); Lymphocytes % 5.5 %; Mean Corpuscular Volume 88.1 fL (83.0-100.0); Nucleated Red Blood Cells 0.9 /100 WBC (0)
[2018-03-26 17:57] LABS: Basophils % 0.1 %; Immature Granulocytes % 1.3 % (0-4); Lymphocytes # 0.4 K/mcL (0.6-4.6); Mean Corpuscular HGB Conc 35.5 g/dL (31.6-35.5); Mean Corpuscular Hemoglobin 31.3 pg (28.0-33.3); Mean Platelet Volume 10.9 fL (9.4-12.4); Monocytes # 0.2 K/mcL (0.0-1.3); Monocytes % 3.1 %; Red Blood Count 3.29 M/mcL (3.82-4.97); Red Cell Distribution Width 16.2 % (11.5-14.5)
[2018-03-26 17:57] LABS: VBG Ionized Calcium 1.59 mmol/L (1.15-1.35)
[2018-03-26 18:06] LABS: Platelet Count 57 K/mcL (140-400)
[2018-03-26 18:12] LABS: Alanine Aminotransferase 25 Units/L (7-52); Albumin 2.9 g/dL (3.5-5.7); Albumin/Globulin Ratio 1.7 (1.1-2.2); Alkaline Phosphatase 66 Units/L (34-104); Aspartate Amino Transferase 30 Units/L (13-39); BUN/Creatinine Ratio 26 (6-26); Bilirubin,Direct 0.7 mg/dL (0.0-0.2); Bilirubin,Indirect 0.7 mg/dL (0.0-1.2); Bilirubin,Total 1.4 mg/dL (0.3-1.0); Blood Urea Nitrogen 16 mg/dL (8-23); Calcium 11.4 mg/dL (8.6-10.3); Carbon Dioxide 21 mEq/L (23-29); Chloride 108 mEq/L (98-107); Globulin 1.7 g/dL (2.4-3.5); Glucose 171 mg/dL (70-105); Magnesium 1.8 mg/dL (1.6-2.6); Osmolality,Calculated 293 (280-300); Phosphorous 1.7 mg/dL (2.7-4.5); Potassium 3.3 mEq/L (3.5-5.1); Sodium 139 mEq/L (136-145); Total Protein 4.6 g/dL (6.4-8.9); eGFR For Non-African Americans > 60 (> 60)
[2018-03-26] MEDS: Norepinephrine 8 MG in D5% in Water 250 ML IVC SCH (19:00)
[2018-03-26] MEDS: Vasopressin 40 UNIT in D5% in Water 100 ML IV SCH (23:40)
[2018-03-26 23:52] LABS: ABG Ionized Calcium 1.58 mmol/L (1.15-1.35)
[2018-03-27 00:08] LABS: Alanine Aminotransferase 23 Units/L (7-52); Albumin 3.3 g/dL (3.5-5.7); Albumin/Globulin Ratio 2.4 (1.1-2.2); Alkaline Phosphatase 65 Units/L (34-104); Aspartate Amino Transferase 28 Units/L (13-39); BUN/Creatinine Ratio 26 (6-26); Bilirubin,Direct 0.6 mg/dL (0.0-0.2); Bilirubin,Indirect 0.8 mg/dL (0.0-1.2); Bilirubin,Total 1.4 mg/dL (0.3-1.0); Blood Urea Nitrogen 15 mg/dL (8-23); Calcium 11.1 mg/dL (8.6-10.3); Carbon Dioxide 24 mEq/L (23-29); Chloride 108 mEq/L (98-107); Globulin 1.4 g/dL (2.4-3.5); Glucose 128 mg/dL (70-105); Magnesium 1.9 mg/dL (1.6-2.6); Osmolality,Calculated 288 (280-300); Phosphorous 1.2 mg/dL (2.7-4.5); Potassium 3.1 mEq/L (3.5-5.1); Sodium 138 mEq/L (136-145); Total Protein 4.7 g/dL (6.4-8.9); eGFR For Non-African Americans > 60 (> 60)
[2018-03-27 00:27] LABS: Hemoglobin 9.1 g/dL (11.5-15.4); Red Cell Distribution Width 16.1 % (11.5-14.5)
[2018-03-27 00:29] LABS: Basophils % 0.2 %; Hematocrit 25.7 % (35.3-44.9); Immature Granulocytes % 1.2 % (0-4); Immature Platelets 8.8 % (1.1-6.1); Lymphocytes # 0.2 K/mcL (0.6-4.6); Lymphocytes % 4.4 %; Mean Corpuscular HGB Conc 35.4 g/dL (31.6-35.5); Mean Corpuscular Volume 87.4 fL (83.0-100.0); Mean Platelet Volume 11.8 fL (9.4-12.4); Monocytes # 0.2 K/mcL (0.0-1.3); Monocytes % 3.5 %; Neutrophils # 4.7 K/mcL (1.6-8.9); Nucleated Red Blood Cells 1.2 /100 WBC (0); Red Blood Count 2.94 M/mcL (3.82-4.97); Segmented Neutrophils % 90.7 %
[2018-03-27 00:30] LABS: Platelet Count 48 K/mcL (140-400)
[2018-03-27] MEDS: PrismaSATE BGK 4/2.5 5,000 ML CRRT SCH ×2 (01:00→10:00)
[2018-03-27] MEDS: Artificial Tears SOLN 15 ML BOTTLE BOTH EYES SCH ×4 (03:35→17:07)
[2018-03-27] MEDS ORDERED: Vancomycin 500 MG in 0.9 % Sodium Chloride Mini Bag 100 ML IVPB ONE (04:00)
[2018-03-27 04:29] LABS: ABG Base Excess 1 mEq/L (-2 to 3); ABG HCO3 24 mEq/L (21-27); ABG Oxygen Saturation 99 % (95-98); ABG PCO2 34 mmHg (35-45); ABG PH 7.46 pH Units (7.32-7.45); ABG PO2 128 mmHg (85-104); ABG TCO2 25 mEq/L (20-26); Blood Gas Modality ASSIST CONTROL; Blood Gas PEEP 5 cm H2O; Blood Gas Respiration Rate 16; Blood Gas VT 320 cc
[2018-03-27] MEDS: Levothyroxine Sodium 100 MCG VIAL IVP SCH (05:46)
[2018-03-27] MEDS: Pantoprazole 40 MG VIAL IVP SCH (05:46)
[2018-03-27] MEDS: Insulin LISPRO 300 UNITS/3 ML VIAL SQ SCH (05:46)
[2018-03-27 05:59] LABS: ABG Ionized Calcium 1.48 mmol/L (1.15-1.35)
[2018-03-27 06:03] LABS: Basophils % 0.2 %; Hemoglobin 9.5 g/dL (11.5-15.4)
[2018-03-27 06:05] LABS: Hematocrit 27.1 % (35.3-44.9); Immature Granulocytes % 1.4 % (0-4); Immature Platelets 8.7 % (1.1-6.1); Lymphocytes # 0.2 K/mcL (0.6-4.6); Mean Corpuscular HGB Conc 35.1 g/dL (31.6-35.5); Mean Corpuscular Hemoglobin 30.8 pg (28.0-33.3); Mean Platelet Volume 11.9 fL (9.4-12.4); Monocytes # 0.2 K/mcL (0.0-1.3); Monocytes % 3.5 %; Neutrophils # 5.3 K/mcL (1.6-8.9); Nucleated Red Blood Cells 1.2 /100 WBC (0); Red Blood Count 3.08 M/mcL (3.82-4.97); Red Cell Distribution Width 16.3 % (11.5-14.5); Segmented Neutrophils % 90.9 %
[2018-03-27 06:08] LABS: Platelet Count 47 K/mcL (140-400)
[2018-03-27 06:16] LABS: Alanine Aminotransferase 24 Units/L (7-52); Albumin 3.2 g/dL (3.5-5.7); Albumin/Globulin Ratio 2.3 (1.1-2.2); Alkaline Phosphatase 76 Units/L (34-104); Aspartate Amino Transferase 30 Units/L (13-39); BUN/Creatinine Ratio 25 (6-26); Bilirubin,Direct 0.7 mg/dL (0.0-0.2); Bilirubin,Indirect 0.7 mg/dL (0.0-1.2); Bilirubin,Total 1.4 mg/dL (0.3-1.0); Blood Urea Nitrogen 13 mg/dL (8-23); Calcium 10.5 mg/dL (8.6-10.3); Carbon Dioxide 24 mEq/L (23-29); Chloride 108 mEq/L (98-107); Globulin 1.4 g/dL (2.4-3.5); Glucose 132 mg/dL (70-105); Osmolality,Calculated 290 (280-300); Phosphorous 1.1 mg/dL (2.7-4.5); Potassium 3.3 mEq/L (3.5-5.1); Sodium 139 mEq/L (136-145); Total Protein 4.6 g/dL (6.4-8.9); eGFR For Non-African Americans > 60 (> 60)
--- NOTE | 2018-03-27 06:41 | Pulmonology Progress Note ---
Addendum entered and electronically signed by Elio Ratliff 03/27/18 16:00: Original Note: <Austin Ordonez W - Last Filed: 03/27/18 10:14> Date of Encounter: 03/27/18 Objective PUL Vital signs: Last Vital Signs Temp 97.1 F L 03/27/18 04:00 Pulse 78 03/27/18 07:00 Resp 16 03/27/18 07:18 BP 109/48 03/27/18 07:00 Pulse Ox 100 03/27/18 07:18 Ventilator Settings Ventilator Settings: Ventilator Settings, Last 8 Hours Ventilator Tidal Volume 320 Setting Ventilator Tidal Volume 320 Setting Ventilator Tidal Volume 320 Setting Ventilator Tidal Volume 320 Setting Ventilator Tidal Volume 320 Setting Ventilator Tidal Volume 320 Setting Ventilator Tidal Volume 320 Setting Ventilator Tidal Volume 320 Setting Ventilator Tidal Volume 320 Setting Ventilator Tidal Volume 320 Setting Ventilator Tidal Volume 320 Setting Ventilator Tidal Volume 320 Setting Ventilator Tidal Volume 320 Setting Ventilator Respiratory Rate 16 Setting Ventilator Respiratory Rate 16 Setting Ventilator Respiratory Rate 16 Setting Ventilator Respiratory Rate 16 Setting Ventilator Respiratory Rate 16 Setting Ventilator Respiratory Rate 16 Setting Ventilator Respiratory Rate 16 Setting Ventilator Respiratory Rate 16 Setting Ventilator Respiratory Rate 16 Setting Ventilator Respiratory Rate 16 Setting Ventilator Respiratory Rate 16 Setting Ventilator Respiratory Rate 16 Setting Ventilator Respiratory Rate 16 Setting Actual Respiratory Rate 16 Actual Respiratory Rate 17 Actual Respiratory Rate 17 Actual Respiratory Rate 16 Actual Respiratory Rate 16 Actual Respiratory Rate 17 Actual Respiratory Rate 16 Actual Respiratory Rate 16 Actual Respiratory Rate 16 Actual Respiratory Rate 16 Actual Respiratory Rate 17 Actual Respiratory Rate 16 Positive End Expiratory 5 Pressure Positive End Expiratory 5 Pressure Positive End Expiratory 5 Pressure Positive End Expiratory 5 Pressure Positive End Expiratory 5 Pressure Positive End Expiratory 5 Pressure Positive End Expiratory 5 Pressure Positive End Expiratory 5 Pressure Positive End Expiratory 5 Pressure Positive End Expiratory 5 Pressure Positive End Expiratory 5 Pressure Positive End Expiratory 5 Pressure Positive End Expiratory 5 Pressure Peak Inspiratory Airway 14 Pressure Peak Inspiratory Airway 16 Pressure Peak Inspiratory Airway 15 Pressure Peak Inspiratory Airway 15 Pressure Peak Inspiratory Airway 16 Pressure Peak Inspiratory Airway 15 Pressure Peak Inspiratory Airway 16 Pressure Peak Inspiratory Airway 15 Pressure Peak Inspiratory Airway 17 Pressure Peak Inspiratory Airway 18 Pressure Peak Inspiratory Airway 14 Pressure Peak Inspiratory Airway 18 Pressure Results - Laboratory Findings CBC and BMP: 03/27/18 05:44 03/27/18 05:44 ABG ABG pH 7.46 pH Units (7.32-7.45) H 03/27/18 04:26 ABG pCO2 34 mmHg (35-45) L 03/27/18 04:26 ABG pO2 128 mmHg (85-104) H 03/27/18 04:26 ABG O2 Saturation 99 % (95-98) H 03/27/18 04:26 PT/INR, D-dimer PT 20.4 Seconds (9.4-12.1) H 03/26/18 10:10 Abnormal lab findings: Abnormal lab results RBC 3.08 M/mcL (3.82-4.97) L 03/27/18 05:44 Hgb 9.5 g/dL (11.5-15.4) L 03/27/18 05:44 Hct 27.1 % (35.3-44.9) L 03/27/18 05:44 RDW 16.3 % (11.5-14.5) H 03/27/18 05:44 Plt Count 47 K/mcL (140-400) L 03/27/18 05:44 Band Neutrophils % 16.0 % (0-4) H 03/23/18 11:09 Lymphocytes # 0.2 K/mcL (0.6-4.6) L 03/27/18 05:44 Nucleated RBCs/100 WBC 1.2 /100 WBC (0) H 03/27/18 05:44 Platelet Estimate Marked Decrease (Normal) L 03/26/18 05:30 Immature Plt Fraction 8.7 % (1.1-6.1) H 03/27/18 05:44 Anisocytosis 1+ (Not Present) A 03/23/18 13:25 Microcytosis Present (Not Present) A 03/23/18 13:25 Macrocytosis Present (Not Present) A 03/23/18 13:25 PT 20.4 Seconds (9.4-12.1) H 03/26/18 10:10 APTT 37.2 Seconds (26.0-36.0) H 03/27/18 05:44 Fibrinogen 113 mg/dL (169-393) L 03/26/18 02:10 Heparin Anti-Xa, Unfract 0.22 IU/mL (0.30-0.70) L 03/26/18 13:13 ABG pH 7.46 pH Units (7.32-7.45) H 03/27/18 04:26 ABG pCO2 34 mmHg (35-45) L 03/27/18 04:26 ABG pO2 128 mmHg (85-104) H 03/27/18 04:26 ABG O2 Saturation 99 % (95-98) H 03/27/18 04:26 Potassium 3.3 mEq/L (3.5-5.1) L 03/27/18 05:44 Chloride 108 mEq/L (98-107) H 03/27/18 05:44 Creatinine 0.53 mg/dL (0.60-1.20) L 03/27/18 05:44 Glucose 132 mg/dL (70-105) H 03/27/18 05:44 POC Glucose 112 mg/dL (70-99) H 03/26/18 23:32 Calcium 10.5 mg/dL (8.6-10.3) H 03/27/18 05:44 Venous Ioniz Calcium 1.59 mmol/L (1.15-1.35) H 03/26/18 17:54 Phosphorus 1.1 mg/dL (2.7-4.5) L 03/27/18 05:44 Total Bilirubin 1.4 mg/dL (0.3-1.0) H 03/27/18 05:44 Direct Bilirubin 0.7 mg/dL (0.0-0.2) H 03/27/18 05:44 Lactate Dehydrogenase 129 Units/L (140-271) L 03/23/18 07:51 Troponin I 0.19 ng/mL (< 0.04) H* 03/22/18 08:05 Serum Total Protein 4.6 g/dL (6.4-8.9) L 03/27/18 05:44 Albumin 3.2 g/dL (3.5-5.7) L 03/27/18 05:44 Globulin 1.4 g/dL (2.4-3.5) L 03/27/18 05:44 Albumin/Globulin Ratio 2.3 (1.1-2.2) H 03/27/18 05:44 Amylase 28 Units/L (29-103) L 03/24/18 03:00 Lipase 10 Units/L (11-82) L 03/24/18 03:00 TSH 0.169 mcIU/mL (0.340-5.600) L 03/22/18 08:05 Free T3 2.00 pg/mL (2.50-3.90) L 03/22/18 08:05 Arterial Blood Ionized Calcium 1.48 mmol/L (1.15-1.35) H 03/27/18 05:56 Urine Ketones Trace mg/dL (Negative) H 03/21/18 22:17 Urine Bilirubin Large (Negative) H 03/21/18 22:17 Ur Squamous Epith Cells Many per lpf (None-Few) H 03/21/18 22:17 Urine Total Volume 0.11 Liters (0.60-1.60) L 03/26/18 07:50 Ur Creatinine 24 Hour 88 mg/day (600-1800) L 03/26/18 07:50 Vancomycin Trough 18 mcg/mL (5-10) H 03/26/18 19:49 - Microbiology Findings Microbiology Findings: Microbiology, Last 48 Hours 03/21/18 22:25 Blood Culture - Final Peripheral Venipuncture No growth. Final report. 03/21/18 22:31 Blood Culture - Final Peripheral Venipuncture No growth. Final report. - Clinical Findings Intake & Output: Intake & Output 03/26/18 03/26/18 03/27/18 15:59 23:59 07:59 Intake Total 1537.8 / 1537.8 593.5 / 593.5 212.5 / 212.5 Output Total 1822 / 1822 1325 / 1325 1117 / 1117 Balance -284.2 / -284.2 -731.5 / -731.5 -904.5 / -904.5 Weight 81.9 kg Consult Discharge Plan - Plan Referrals: NONE,PCP [Primary Care Provider] - - Attending Attestation I examined this patient and my medical decision-making was reviewed with the Resident Physician. I agree with the documented findings, disposition and treatment plan as described except to the extent set forth below. We independently had [id number] contact with the patient I spent 32min of Critical Care time with this patient. It involved decision making of high complexity to assess, manipulate, and support vital organ system failure and/or to prevent further life threatening deterioration of the patient's condition. The time involved in the performance of separately reportable procedures was not counted toward critical care time. Patient seen and examined at bedside Labs, radiology, chart personally reviewed. Management was reviewed during multidisciplinary critical care rounds. 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 Pulm: Acute hypoxic hypercapnic respiratory failure Cards: Distributive Shock s/t to Sepsis complicated Hemorrhagic shock remains on vasopressor GI: PPI prophylaxis given Nutrition: Cont Enteral Nutrition per dietary recs Renal: BREE on CVVH renal follwoing UOP Monitored remains oliguirc, Cont to Trend sCr and monitor Electrolytes. ID: Septic shock on abx cultures negative. stop Vanc Heme/Onc: H/H stable s/p transfusion yesterday. Plts low but stable.. Coags monitored. Endo: Glucose Monitored wean stress dose hydrocortisone Integ/MSK: Skin Care per routine ICU Nursing Protocol to prevent ulcers. Lines: All lines examined without evidence of infection : Dispo: Remains criticall ill CODE: DNAR. Poor Prognosis. Palliative consulted. Family meeting today. <Elio Ratliff - Last Filed: 03/27/18 14:01> Date of Encounter: 03/27/18 Time of Encounter: 08:07 Assessment and Plan (1) Septic shock Current Visit: Yes Status: Acute On admission, pt did not meet SIRS criteria with only tachycardia in the low 100s Since admission pt has had hypothermia with temp of <96.8, tachycardia, tachypnea, and leukocytosis Lactic acid was negative on admission at 1.7, but subsequently increased to a max of 5.9, normal today at 0.7 Unknown source of infection at this time - cholecystitis vs pna vs sinusitis vs bacteremia Cholecystitis unlikely with negative ultrasound and non-tender abdomen on exam Blood cultures negative Respiratory panel negative UA negative GI panel negative Infectious disease on board Day 6 of Cefepime, Vanc, and Flagyl Pt's POA, her sister Cindi, earlier this month. Cindi's Ed is the alternate POA. Held a family meeting with Ed, pt's sister Star and pt's niece. Goals of care were discussed and Ed expressed that the pt's wished for no life supportive measures. Ed stated that when Joan was able to participate in a discussion about being critically ill, she had always stated that she wanted no form of life support. Family was updated on her clinical status, and understand that she is on vasopressors, dialysis, and ventilatory support. Ed and family present agree this would not be in alignment with patient wishes, and desire to have her compassionately extubated and kept comfortable. Discussed code status, and she was transitioned to DNRCC. Ed signed state DNR form. Pt to be extubated, along with discontinuation of vasopressors and dialysis. Further care per palliative. May transfer to palliative bed if pt is stable in a couple hours. (2) Hemorrhagic shock Current Visit: Yes Status: Suspected Admitted from care home due to concerns for hypotension and decreased alertness BP on admission 99/48 Pt was initially started on Heparin drip with elevated troponins Hgb on 03/23 was 8.1, currently 9.5 Repeat imagining revealed large hematoma of left upper thigh, IR attempted to embolize but no active bleed was found Pt remains hypotensive on Levophed Plan as above (3) Metabolic acidosis Current Visit: Yes Status: Acute Non-anion gap metabolic acidosis labs on 03/23 Received 4 amps of Sodium Bicarb followed by Bicarb drip Unable to adequately compensate from respiratory standpoint - elected to intubate pt on 03/23 Remains intubated this morning, plan as above (4) Leukocytosis Current Visit: Yes Status: Acute Head CT negative for acute abnormality. Moderate to large right mastoid ef fusion, suggestive of chronic sinusitis Follow up CT sinuses revealed opacification of the right ethmoid air cells. infection vs inflammation CXR revealed no acute abnormalities CT abdomen/pelvis: - diffuse colonic wall thickening suggestive of pancolitis - distended gallbladder with sludge vs stones. - bibasilar atelectasis - trace ascites UA was contaminated with many squamous epithelial cells. No bacteria or leukocyte esterase present. Day 6 of Cefepime, Vanc, and Flagyl Plan as above Qualifiers: Leukocytosis type: bandemia Qualified Code(s): D72.825 - Bandemia (5) Oliguria and anuria Current Visit: Yes Status: Acute UOP 104mL yesterday On CRRT-UF Cr 0.53 today Nephrology is on board Discontinue CRRT per POA and patient wishes Further plan as above (6) Elevated troponin Current Visit: Yes Status: Acute Initial troponin in emergency department 0.05 -> 0.17 -> 0.19 EKG showed sinus tachycardia with inverted T waves in leads I, AVL Pt denied any chest pain, shortness of breath, or diaphoresis Echo results as follows: - LVEF 65-70% - Normal LV chamber size, wall thickness, and systolic function - Mild LV diastolic dysfunction - mild aortic and tricuspic regurg - No pulmonary HTN - IVC normal dimensions and inspiratory collapse Evaluated by cardio, signed off on 03/23 - ACS unlikely. More likely demand ischemia related to hypotension (7) Schizoaffective disorder Current Visit: Yes Status: Chronic chronic issue Qualifiers: Schizoaffective disorder type: unspecified Qualified Code(s): F25.9 - Schizoaffective disorder, unspecified (8) Hypothyroidism Current Visit: Yes Status: Chronic TSH low at 0.169 normal T4 Mildly decreased T3 at 2 Will continue home dose synthroid Qualifiers: Hypothyroidism type: unspecified Qualified Code(s): E03.9 - Hypothyroidism, unspecified (9) DVT prophylaxis Current Visit: Yes Status: Acute EPCDs Hold heparin or further chemical prophylaxis with acute hemorrhagic anemia Subjective Principal diagnosis: Hypotension Interval history: Ms. Whitten is a 67F with PMH of HLD, depression, anxiety, GERD, HTN, osteoarthritis, dementia, panic disorder, and schizophrenia. Patient lives in [facility] and was brought to the ED by EMS due to concerns for hypotension, and decreased mentation. History is limited, as patient has b aseline dementia, does not answer many questions, and patient had no family at bedside. There was also no paperwork sent with her from the care home. Upon arrival to the ED, patient was tachycardic and hypotensive with blood pressures running as low as 70/46. She received 500 ML bolus by squad, and an additional 2 L bolus in the ED yet still remained hypotensive. Patient had right IJ placed urgently in emergency department, and was started on levophed. Initial troponin at 0.05. EKG from ED showed sinus tach with inverted T waves in leads 1 and AVL. Chest x-ray and head CT from ED were unremarkable. Pt afebrile, with no elevated WBC, and no obvious source of infection on admission. Pt seen and examined at bedside. No acute events overnight. Pt is unresponsive to voice. Will wince with deep sternal rub and withdraw when providers attempt to open her eyes. Objective PUL Vital signs: Last Vital Signs Temp 97.1 F L 03/27/18 04:00 Pulse 71 03/27/18 06:00 Resp 16 03/27/18 06:00 BP 105/46 03/27/18 06:00 Pulse Ox 100 03/27/18 06:00 General appearance: no acute distress, asleep Eyes: nonicteric ENT: oropharynx dry Neck: supple, no lymphadenopathy Effort: normal Auscultation: left: diminished breath sounds, right: clear Percussion: bilateral: not dull Cardiovascular: regular rate and rhythm Gastrointestinal: soft, non-tender, non-distended Integumentary: normal Extremities: no cyanosis, no edema, no clubbing, pink and warm, pulses normal Musculoskeletal: no deformities unable to assess due to mental status Ventilator Settings Ventilator Settings: Ventilator Settings, Last 8 Hours Ventilator Tidal Volume 320 Setting Ventilator Tidal Volume 320 Setting Ventilator Tidal Volume 320 Setting Ventilator Tidal Volume 320 Setting Ventilator Tidal Volume 320 Setting Ventilator Tidal Volume 320 Setting Ventilator Tidal Volume 320 Setting Ventilator Tidal Volume 320 Setting Ventilator Tidal Volume 320 Setting Ventilator Tidal Volume 320 Setting Ventilator Tidal Volume 320 Setting Ventilator Tidal Volume 335 Setting Ventilator Tidal Volume 320 Setting Ventilator Respiratory Rate 16 Setting Ventilator Respiratory Rate 16 Setting Ventilator Respiratory Rate 16 Setting Ventilator Respiratory Rate 16 Setting Ventilator Respiratory Rate 16 Setting Ventilator Respiratory Rate 16 Setting Ventilator Respiratory Rate 16 Setting Ventilator Respiratory Rate 16 Setting Ventilator Respiratory Rate 16 Setting Ventilator Respiratory Rate 16 Setting Ventilator Respiratory Rate 16 Setting Ventilator Respiratory Rate 16 Setting Ventilator Respiratory Rate 16 Setting Actual Respiratory Rate 17 Actual Respiratory Rate 16 Actual Respiratory Rate 16 Actual Respiratory Rate 17 Actual Respiratory Rate 16 Actual Respiratory Rate 16 Actual Respiratory Rate 16 Actual Respiratory Rate 16 Actual Respiratory Rate 17 Actual Respiratory Rate 16 Actual Respiratory Rate 17 Actual Respiratory Rate 16 Positive End Expiratory 5 Pressure Positive End Expiratory 5 Pressure Positive End Expiratory 5 Pressure Positive End Expiratory 5 Pressure Positive End Expiratory 5 Pressure Positive End Expiratory 5 Pressure Positive End Expiratory 5 Pressure Positive End Expiratory 5 Pressure Positive End Expiratory 5 Pressure Positive End Expiratory 5 Pressure Positive End Expiratory 5 Pressure Positive End Expiratory 5 Pressure Positive End Expiratory 5 Pressure Peak Inspiratory Airway 15 Pressure Peak Inspiratory Airway 15 Pressure Peak Inspiratory Airway 16 Pressure Peak Inspiratory Airway 15 Pressure Peak Inspiratory Airway 16 Pressure Peak Inspiratory Airway 15 Pressure Peak Inspiratory Airway 17 Pressure Peak Inspiratory Airway 18 Pressure Peak Inspiratory Airway 14 Pressure Peak Inspiratory Airway 18 Pressure Peak Inspiratory Airway 18 Pressure Peak Inspiratory Airway 15 Pressure Results - Laboratory Findings CBC and BMP: 03/27/18 05:44 03/27/18 05:44 ABG ABG pH 7.46 pH Units (7.32-7.45) H 03/27/18 04:26 ABG pCO2 34 mmHg (35-45) L 03/27/18 04:26 ABG pO2 128 mmHg (85-104) H 03/27/18 04:26 ABG O2 Saturation 99 % (95-98) H 03/27/18 04:26 PT/INR, D-dimer PT 20.4 Seconds (9.4-12.1) H 03/26/18 10:10 Abnormal lab findings: Abnormal lab results RBC 3.08 M/mcL (3.82-4.97) L 03/27/18 05:44 Hgb 9.5 g/dL (11.5-15.4) L 03/27/18 05:44 Hct 27.1 % (35.3-44.9) L 03/27/18 05:44 RDW 16.3 % (11.5-14.5) H 03/27/18 05:44 Plt Count 47 K/mcL (140-400) L 03/27/18 05:44 Band Neutrophils % 16.0 % (0-4) H 03/23/18 11:09 Lymphocytes # 0.2 K/mcL (0.6-4.6) L 03/27/18 05:44 Nucleated RBCs/100 WBC 1.2 /100 WBC (0) H 03/27/18 05:44 Platelet Estimate Marked Decrease (Normal) L 03/26/18 05:30 Immature Plt Fraction 8.7 % (1.1-6.1) H 03/27/18 05:44 Anisocytosis 1+ (Not Present) A 03/23/18 13:25 Microcytosis Present (Not Present) A 03/23/18 13:25 Macrocytosis Present (Not Present) A 03/23/18 13:25 PT 20.4 Seconds (9.4-12.1) H 03/26/18 10:10 APTT 37.2 Seconds (26.0-36.0) H 03/27/18 05:44 Fibrinogen 113 mg/dL (169-393) L 03/26/18 02:10 Heparin Anti-Xa, Unfract 0.22 IU/mL (0.30-0.70) L 03/26/18 13:13 ABG pH 7.46 pH Units (7.32-7.45) H 03/27/18 04:26 ABG pCO2 34 mmHg (35-45) L 03/27/18 04:26 ABG pO2 128 mmHg (85-104) H 03/27/18 04:26 ABG O2 Saturation 99 % (95-98) H 03/27/18 04:26 Potassium 3.3 mEq/L (3.5-5.1) L 03/27/18 05:44 Chloride 108 mEq/L (98-107) H 03/27/18 05:44 Creatinine 0.53 mg/dL (0.60-1.20) L 03/27/18 05:44 Glucose 132 mg/dL (70-105) H 03/27/18 05:44 POC Glucose 112 mg/dL (70-99) H 03/26/18 23:32 Calcium 10.5 mg/dL (8.6-10.3) H 03/27/18 05:44 Venous Ioniz Calcium 1.59 mmol/L (1.15-1.35) H 03/26/18 17:54 Phosphorus 1.1 mg/dL (2.7-4.5) L 03/27/18 05:44 Total Bilirubin 1.4 mg/dL (0.3-1.0) H 03/27/18 05:44 Direct Bilirubin 0.7 mg/dL (0.0-0.2) H 03/27/18 05:44 Lactate Dehydrogenase 129 Units/L (140-271) L 03/23/18 07:51 Troponin I 0.19 ng/mL (< 0.04) H* 03/22/18 08:05 Serum Total Protein 4.6 g/dL (6.4-8.9) L 03/27/18 05:44 Albumin 3.2 g/dL (3.5-5.7) L 03/27/18 05:44 Globulin 1.4 g/dL (2.4-3.5) L 03/27/18 05:44 Albumin/Globulin Ratio 2.3 (1.1-2.2) H 03/27/18 05:44 Amylase 28 Units/L (29-103) L 03/24/18 03:00 Lipase 10 Units/L (11-82) L 03/24/18 03:00 TSH 0.169 mcIU/mL (0.340-5.600) L 03/22/18 08:05 Free T3 2.00 pg/mL (2.50-3.90) L 03/22/18 08:05 Arterial Blood Ionized Calcium 1.48 mmol/L (1.15-1.35) H 03/27/18 05:56 Urine Ketones Trace mg/dL (Negative) H 03/21/18 22:17 Urine Bilirubin Large (Negative) H 03/21/18 22:17 Ur Squamous Epith Cells Many per lpf (None-Few) H 03/21/18 22:17 Urine Total Volume 0.11 Liters (0.60-1.60) L 03/26/18 07:50 Ur Creatinine 24 Hour 88 mg/day (600-1800) L 03/26/18 07:50 Vancomycin Trough 18 mcg/mL (5-10) H 03/26/18 19:49 - Microbiology Findings Microbiology Findings: Microbiology, Last 48 Hours 03/21/18 22:25 Blood Culture - Final Peripheral Venipuncture No growth. Final report. 03/21/18 22:31 Blood Culture - Final Peripheral Venipuncture No growth. Final report. - Clinical Findings Intake & Output: Intake & Output 03/26/18 03/26/18 03/27/18 15:59 23:59 07:59 Intake Total 1537.8 / 1537.8 593.5 / 593.5 202.5 / 202.5 Output Total 1822 / 1822 1325 / 1325 983 / 983 Balance -284.2 / -284.2 -731.5 / -731.5 -780.5 / -780.5 Weight 81.9 kg
[2018-03-27] MEDS: Hydrocortisone Sodium Succ 100 MG/2 ML VIAL IVP SCH (07:30)
[2018-03-27] MEDS: Chlorhexidine Rinse 15 ML MOUTHWASH MM SCH (07:30)
[2018-03-27] MEDS: Cefepime HCl 2,000 MG in Water for inj. (sterile) 20 ML 20 ML IVP SCH (07:30)
[2018-03-27] MEDS: MetroNIDAZOLE 500 MG/100 ML 500 MG/100 ML BAG IVPB SCH (07:31)
[2018-03-27] MEDS: Nystatin OINT 15 GM TUBE TP SCH ×4 (07:32→22:21)
[2018-03-27] MEDS ORDERED: Potassium Phosphate 44 MEQ in 0.9 % Sodium Chloride 250 ML IVPB ONE (08:05)
[2018-03-27 09:37] LABS: INR 1.5; Prothrombin Time 16.8 Seconds (9.4-12.1)
[2018-03-27] MEDS ORDERED: *HR* LORazepam 2 MG/ML VIAL IVP PRN ×2 (11:22→17:22)
[2018-03-27] MEDS ORDERED: *HR* FentaNYL (PF) 100 MCG/2 ML VIAL IVP PRN ×2 (11:22→17:22)
[2018-03-27] MEDS ORDERED: Atropine Sulfate 1% 40 DROP/2 ML BOTTLE SL PRN (11:23)
[2018-03-27] MEDS ORDERED: Glycopyrrolate 0.2 MG/ML VIAL IVP PRN (11:24)
[2018-03-27] MEDS ORDERED: 0.9 % Sodium Chloride 1,000 ML ONE (11:34)
--- NOTE | 2018-03-27 12:34 | Palliative - Consult Note ---
Date of Encounter: 03/27/18 Time of Encounter: 11:30 - Assessment and Plan (1) Dyspnea Current Visit: Yes Status: Acute Assessment and plan: Will have supportive oxygen after extubation, and Fentanyl IVP hourly PRN. Monitor and titrate as needed. Qualifiers: Dyspnea type: unspecified Qualified Code(s): R06.00 - Dyspnea, unspecified (2) Generalized pain Current Visit: Yes Status: Acute Assessment and plan: Will provide Fentanyl 50mcg prior to extubation and allow hourly PRN afterward. Titrate as necessary. (3) Anxiety Current Visit: Yes Status: Acute Assessment and plan: Will have Lorazepam available as needed, 1mg every 2 hours and titrate as needed. (4) Advanced care planning/counseling discussion Current Visit: Yes Status: Acute Assessment and plan: Patient's primary POA - her sister Cindi, on 03/18. Cindi's Ed, is her alternate POA. Ed, patient's sister, and niece arrived at this hospital this am. Meeting was held with Dr. Ordonez, Dr. Ratliff, Air Defense Specialist Kain Patel and myself regarding goals of care. Patient was intubated and not able to participate in conversation. Ed states that him and his often had discussion around what each of them would want done if they were critically ill. Ed stated that when Joan was able to participate in these discussion, she had always stated that she wanted no form of life support. They were updated on her clinical status, and understand that she is on vasopressors, dialysis, and ventilatory support. Ed and family present agree this would not be in alignment with patient wishes, and desire to have her compassionately extubated and kept comfortable. Discussed code status, and she was transitioned to DNRCC. Ed signed state DNR form. She will be liberated from life sustaining devices shortly. May move to palliative care bed if stable after a couple of hours. 60 min spent in coordination of care and counseling. (5) Septic shock Current Visit: Yes Status: Acute (6) BREE (acute kidney injury) Current Visit: Yes Status: Acute Palliative-CN HPI - Data of Consult Consult date: 03/27/18 Requesting Physician: Marnie Mayer MD Primary Care Provider: PCP NONE - Consult Narrative History of present illness: Ms. Whitten is a 67 year old female who is resident at [facility], who was admitted with altered mental status and hypotension. She was seen in ER and transferred to ICU several days ago. She deteriorated and did require intubation. She was treated for septic shock. Renal function declined and she was also started on renal replacement therapy. Her mental status has not improved, she is currently on no sedation. Still requiring vasopressor therapy for hypotension. Cardiology/Nephrology consults have been obtained during her hospital stay as well. EF 65-70%. She developed acute anemia and was found to have large hematoma left thigh. IR was consulted, but by that time, they were not able to find a site of active bleed. Since she has made no clinical progress, palliative was consulted to assist with goals of care discussion. Upon my visit, pt remains intubated and on ventilator support. Levophed is infusing. She is on no sedation. She opens her eyes and grimaces with assessment, but does not follow any commands. Her brother n law, who is acting POA since her sisters last week is at the bedside. CC: Marnie Mayer MD - Time Spent with Patient Time: Total time spent is greater than 50% in coordination of care (as documented) at patient's floor/unit and/or counseling patient: Time with patient: 60 minutes Past Med Surg Social Fam HX - Past Medical History Medical history: dementia, GERD, thyroid disease Psychiatric history: anxiety, panic disorder, schizophrenia, other - Past Surgical History Surgical History: non-contributory - Social History Smoking Status: Unknown if ever smoked Alcohol use: unknown Drug use: unknown Medications and Allergies Acetaminophen [Tylenol Arthritis] 650 mg PO Q6H PRN 03/22/18 [History] Acetaminophen [Tylenol] 650 mg PO BID PRN 03/22/18 [History] Docusate [Colace] 100 mg PO DAILY PRN 03/22/18 [History] LORazepam [Ativan] 0.5 mg PO BID PRN 03/22/18 [History] Levothyroxine [Synthroid] 88 mcg PO 0630 03/22/18 [History] Pyrithione Zinc [Selsun Blue] 1 appl TP TUFR PRN 03/22/18 [History] Sertraline [Zoloft] 50 mg PO DAILY 03/22/18 [History] Zolpidem [Ambien] 5 mg PO HS PRN 03/22/18 [History] risperiDONE [Risperdal] 2 mg PO HS 03/22/18 [History] Allergy/AdvReac Type Severity Reaction Status Date / Time Penicillins Allergy See Verified 03/22/18 07:40 Comments ROS unobtainable: due to mental status Palliative Care-Exam - Constitutional Vitals: Temp Pulse Resp BP Pulse Ox 96.4 F L 64 16 109/42 96 03/27/18 07:59 03/27/18 11:00 03/27/18 11:09 03/27/18 11:00 03/27/18 11:54 General appearance: Present: no acute distress - Head Head Exam: Present: normal inspection, normocephalic - Respiratory Respiratory exam: Present: rhonchi Additional comments: Rhonchi throughout anterior lung sheridan. FIO2 35%/PEEP 5 - Cardiovascular Cardiovascular exam: Present: +S1, +S2 - GI/Abdominal Exam GI/Abdominal exam: Present: normal bowel sounds, soft - Catheter Type: Urethral (Luna) - Extremities Exam Additional comments: 3+ edema to upper extremities, 1+ to lower extremities - Neurological Exam Additional comments: Opens eyes with tactile stimulation, but does not follow any commands. - Skin Skin exam: Present: dry, pallor Internal Medicine - CN: Reslt - Labs CBC & Chem 7: 03/27/18 05:44 03/27/18 05:44 Labs: Short CBC 03/26/18 03/26/18 03/27/18 Range/Units 17:45 23:33 05:44 WBC 6.7 5.2 5.8 (4.3-11.1) K/mcL Hgb 10.3 L 9.1 L 9.5 L (11.5-15.4) g/dL Hct 29.0 L 25.7 L 27.1 L (35.3-44.9) % Plt Count 57 L D 48 L 47 L (140-400) K/mcL Neutrophils # 6.0 4.7 5.3 (1.6-8.9) K/mcL BMP 03/26/18 03/26/18 03/26/18 13:13 17:45 23:33 Sodium 139 139 138 Potassium 3.3 L 3.3 L 3.1 L Chloride 108 H 108 H 108 H Carbon Dioxide 20 L 21 L 24 BUN 18 16 15 Creatinine 0.67 0.61 0.58 L Glucose 155 H 171 H 128 H Calcium 11.7 H 11.4 H 11.1 H 03/27/18 05:44 Sodium 139 Potassium 3.3 L Chloride 108 H Carbon Dioxide 24 BUN 13 Creatinine 0.53 L Glucose 132 H Calcium 10.5 H Liver Function 03/26/18 03/26/18 03/26/18 Range/Units 13:13 17:45 23:33 Total Bilirubin 1.5 H 1.4 H 1.4 H (0.3-1.0) mg/dL Direct Bilirubin 0.8 H 0.7 H 0.6 H (0.0-0.2) mg/dL AST 31 30 28 (13-39) Units/L ALT 20 25 23 (7-52) Units/L Alkaline Phosphatase 37 66 65 (34-104) Units/L Albumin 2.9 L 2.9 L 3.3 L (3.5-5.7) g/dL 03/27/18 Range/Units 05:44 Total Bilirubin 1.4 H (0.3-1.0) mg/dL Direct Bilirubin 0.7 H (0.0-0.2) mg/dL AST 30 (13-39) Units/L ALT 24 (7-52) Units/L Alkaline Phosphatase 76 (34-104) Units/L Albumin 3.2 L (3.5-5.7) g/dL - ABG Interpretation ABG results: ABG ABG pH 7.46 pH Units (7.32-7.45) H 03/27/18 04:26 ABG pCO2 34 mmHg (35-45) L 03/27/18 04:26 ABG pO2 128 mmHg (85-104) H 03/27/18 04:26 ABG O2 Saturation 99 % (95-98) H 03/27/18 04:26 PT/INR, D-dimer PT 16.8 Seconds (9.4-12.1) H 03/27/18 09:10 - Impressions Impressions Abdomen Ultrasound 03/25/18 09:22 IMPRESSION: 1. Moderate amount of gallbladder sludge and punctate layering gallstones. No evidence of acute cholecystitis. No biliary dilation. D/ / 03/25/2018 11:48:51 Hao Paula MD / [email or web address] Interpreting Provider: Hao Paula MD Chest X-Ray 03/27/18 08:04 IMPRESSION: Increased left lung atelectasis with a small left pleural effusion. ET tube measures 2.7 cm above the maurizio. D/ / Que Stubbs MD / Que Stubbs MD Interpreting Provider: Que Stubbs MD Consult Discharge Plan - Plan Referrals: NONE,PCP [Primary Care Provider] - Palliative Quality Palliative Quality: Screen for Code Status: Yes, Screen for Goals of Care: Yes, Screen for Pain: Yes, If Pain Regimen Started, Initiate Bowel Regimen: NA, Screen for Nausea/Vomitting: Yes Code Status: 03/22/18 04:09 Resuscitation Status: Active [RES] Routine Comment: Resuscitation Status: Full Code 03/26/18 15:49 CODE [Resuscitation Status: Active] [RES] Routine Comment: Resuscitation Status: DNR-Comfort Care-Arrest 03/27/18 11:21 DNR [Resuscitation Status: Active] [RES] Routine Comment: Resuscitation Status: DNR-Comfort Care
--- NOTE | 2018-03-27 13:47 | Nephrology Progress Note ---
Date of Encounter: 03/27/18 Time of Encounter: 10:15 - Assessment and Plan (1) BREE (acute kidney injury) Current Visit: Yes Status: Acute She most likely has an acute kidney injury secondary to septic and hemorrhagic shock. She has decreased muscle mass and her normal creatinine may be much lower than the standard normal so her current creatinine level may actually be an BREE. -Serum creatinine appropriately improved on CVVH. -Urine output is still unimpressive -temporary hemodialysis catheter in right IJ central line in place -urine creatinine 24 hour 88, urine total volume 0.11 Plan: - Palliative care has had a family meeting and the POA has decided to withdraw care to continue with comfort measures. Will discontinue CRRT- CVVH per POA. (2) Oliguria and anuria Current Visit: Yes Status: Acute As above (3) Anemia Current Visit: Yes Status: Acute Anemia. CT imaging demonstrated hematoma and left thigh -hemoglobin 9.5 -transfused 5 units of packed red blood cells, 2 platelets, 4 cryoprecipitate -abdominal CT demonstrating bilobed hematoma in left thigh adductor muscle measuring 11.1 cm x 5.9 cm Plan: -continue to monitor. No longer transfuse since she is a DNR CCA Qualifiers: Chronic kidney disease stage: unspecified stage Qualified Code(s): N18.9 - Chronic kidney disease, unspecified; D63.1 - Anemia in chronic kidney disease (4) Hemorrhagic shock Current Visit: Yes Status: Suspected Per primary team (5) Septic shock Current Visit: Yes Status: Acute Per primary team Subjective Principal diagnosis: Hypotension Interval history: Patient seen and examined at bedside. She is intubated on mechanical ventilation. She has a temporary HD line and IJ central line in place. There is no family at bedside. Objective - Vital Signs Vital signs: Vital Signs Temp Pulse Resp BP Pulse Ox 03/27/18 11:54 96 03/27/18 11:09 16 100 03/27/18 11:00 64 16 109/42 100 03/27/18 10:00 61 16 100/39 100 03/27/18 09:21 18 100 03/27/18 09:00 68 16 114/55 100 03/27/18 08:00 73 18 111/49 100 03/27/18 07:59 96.4 F L 03/27/18 07:18 16 100 03/27/18 07:00 78 16 109/48 100 03/27/18 06:00 71 16 105/46 100 03/27/18 05:17 17 103/48 100 03/27/18 05:00 61 16 118/52 100 03/27/18 04:00 97.1 F L 71 16 122/55 100 03/27/18 03:35 17 106/51 100 03/27/18 03:00 59 16 130/56 99 03/27/18 02:08 16 88/41 100 03/27/18 02:00 63 16 100/45 100 03/27/18 01:00 75 17 109/49 100 03/27/18 00:00 96.8 F L 59 16 104/46 100 03/26/18 23:41 16 113/51 100 03/26/18 23:00 67 16 118/53 100 03/26/18 22:16 20 140/64 100 03/26/18 22:00 68 17 121/54 100 03/26/18 21:00 80 20 129/56 100 03/26/18 20:00 96 F L 63 17 121/54 100 03/26/18 19:47 16 115/50 100 03/26/18 19:00 65 17 117/47 100 03/26/18 18:00 49 16 105/44 100 03/26/18 17:00 46 16 98/42 100 03/26/18 16:28 19 100 03/26/18 16:00 61 18 107/46 100 03/26/18 15:00 50 18 105/43 100 03/26/18 14:00 81 20 132/52 99 Intake and Output 03/26/18 03/27/18 03/27/18 23:59 07:59 15:59 Intake Total 593.5 / 593.5 222.8 / 222.8 562.1 / 562.1 Output Total 1325 / 1325 1117 / 1117 698 / 698 Balance -731.5 / -731.5 -894.2 / -894.2 -135.9 / -135.9 Intake: IV Fluids 311.5 / 311.5 147.8 / 147.8 449.1 / 449.1 Calcium Chloride 4,000 MG In 0. 123 / 123 9 % Sodium Chloride 1,000 ML @ 40 mls/hr CRRT [facility] Rx#: [id number] PrismaSATE BGK 4/2.5 5,000 ML @ 0 / 0 0 / 0 0 / 0 1000 mls/hr CRRT CONT [facility] Rx#: [id number] Levophed 8 MG In Dextrose 5% 68.5 / 68.5 47.8 / 47.8 49.3 / 49.3 250 ML @ 3 MCG/MIN 5.81 mls/hr IVC CONT [facility] Rx#:[id number] Maxipime 2,000 MG In Water for 20 / 20 inj. (sterile) 20 ML @ 300 mls/ hr IVP Q12H [facility] Rx#:[id number] Flagyl Premix 500 MG/100 ML 500 100 / 100 100 / 100 100 / 100 mg In 100 ml @ 100 mls/hr IVPB Q8HR [facility] Rx#:[id number] Potassium Phosphate 44 MEQ In 0 99.8 / 99.8 .9 % Sodium Chloride 250 ML @ 40 mls/hr IVPB ONCE ONE Rx#: [id number] Vancocin 500 MG In 0.9 % Sodium 100 / 100 Chloride (Mini-Bag +) 100 ML @ 100 mls/hr IVPB ONCE ONE Rx#: [id number] Tube Feeding 80 / 80 75 / 75 53 / 53 Blood Product 142 / 142 Cryoprecipitate Pooled Unit 142 / 142 [id number] Free Water 60 / 60 60 / 60 Output: Katia 1283 / 1283 1088 / 1088 690 / 690 Catheter 42 / 42 29 / 29 8 / 8 Other: Stool Size Small Stool Consistency loose Stool Color Brown Green Weight 81.9 kg Blood Glucose* 144 132 Patient Weight 03/27/18 23:59 Weight 81.9 kg - General Appearance Exam: Gen.: Vitals noted. Intubated on mechanical ventilation HEENT: oropharynx clear, Normocephalic, atraumatic, right sided HD catheter and IJ central line in place Neck: Supple. No adenopathy. Cardiac: RRR, no murmur, +S1/S2, bilateral mild lower extremity edema Pulmonary: CTA bilaterally anteriorly, equal chest expansion Abdomen: soft, Bowel sounds noted MSK: ROM intact, no joint swelling noted Extremities: no cyanosis or clubbing Neuro: sedated on mechanical ventilation - Lab 03/27/18 05:44 03/27/18 05:44 Most recent lab results ABG pH 7.46 pH Units (7.32-7.45) H 03/27/18 04:26 ABG pCO2 34 mmHg (35-45) L 03/27/18 04:26 ABG pO2 128 mmHg (85-104) H 03/27/18 04:26 ABG HCO3 24 mEq/L (21-27) 03/27/18 04:26 ABG O2 Saturation 99 % (95-98) H 03/27/18 04:26 Calcium 10.5 mg/dL (8.6-10.3) H 03/27/18 05:44 Phosphorus 1.1 mg/dL (2.7-4.5) L 03/27/18 05:44 Magnesium 2.0 mg/dL (1.6-2.6) 03/27/18 05:44 Urine Creatinine 80 mg/dL 03/26/18 07:50 Consult Discharge Plan - Plan Referrals: NONE,PCP [Primary Care Provider] -
[2018-03-27] MEDS: FentaNYL (PF) 1,000 MCG in 0.9 % Sodium Chloride 80 ML IVC SCH (14:58)
[2018-03-27] MEDS ORDERED: Hydrocortisone Sodium Succ 100 MG/2 ML VIAL IVP SCH (16:00)
[2018-03-28] MEDS: Hydrocortisone Sodium Succ 100 MG/2 ML VIAL IVP SCH ×2 (00:48→09:24)
[2018-03-28] MEDS ORDERED: Levothyroxine Sodium 100 MCG VIAL IVP SCH (06:30)
[2018-03-28] MEDS ORDERED: MORPHINE SUL Oral CONC 10 MG/0.5 ML ORAL.SYG SL PRN (09:39)
[2018-03-28] MEDS ORDERED: *HR* LORazepam Oral Conc 2 MG/ML SL PRN (09:40)
[2018-03-28] MEDS ORDERED: Atropine Sulfate 1% 40 DROP/2 ML BOTTLE SL PRN (09:41)
[2018-03-28] MEDS ORDERED: Scopolamine Patch 1.5 MG PATCH.TD72 TD PRN (09:42)
[2018-03-28] MEDS ORDERED: *HR* FentaNYL PATCH 12 MCG PATCH TD SCH (09:45)
--- NOTE | 2018-03-28 09:47 | Palliative Progress Note ---
Date of Encounter: 03/28/18 Time of Encounter: 09:40 - Assessment and plan (1) Dyspnea Current Visit: Yes Status: Acute Assessment and plan: Utilized Roxanol PRN. Qualifiers: Dyspnea type: unspecified Qualified Code(s): R06.00 - Dyspnea, unspecified (2) Generalized pain Current Visit: Yes Status: Acute Assessment and plan: Will begin low dose Fentanyl patch 12mcg for comfort and D/C IV Fentanyl. Will add Roxanol oral concentrate for breakthrough (3) Anxiety Current Visit: Yes Status: Acute Assessment and plan: Change IV Lorazepam to oral concentrate. (4) Advanced care planning/counseling discussion Current Visit: Yes Status: Acute Assessment and plan: I spoke with pt brother harpal perdue (POA) and updated on clinical status and goals of care. He is unable to come to hospital today r/t recent and appointments to settle her affairs, but states that his daughter will come to hospital and meet with hospice team at 1200. Will transition to [facility] hospice today. (5) Septic shock Current Visit: Yes Status: Acute (6) BREE (acute kidney injury) Current Visit: Yes Status: Acute - Time Spent With Patient Total time spent is greater than 50% in coordination of care (as documented) at patient's floor/unit and/or counseling patient: - Subjective Interval history: Patient resting quietly. Opens eyes with assessment. No verbal response does not follow commands. Vitals fairly stable. NO family present. - Constitutional Vitals: Abnormal lab results RBC 3.08 M/mcL (3.82-4.97) L 03/27/18 05:44 Hgb 9.5 g/dL (11.5-15.4) L 03/27/18 05:44 Hct 27.1 % (35.3-44.9) L 03/27/18 05:44 RDW 16.3 % (11.5-14.5) H 03/27/18 05:44 Plt Count 47 K/mcL (140-400) L 03/27/18 05:44 Band Neutrophils % 16.0 % (0-4) H 03/23/18 11:09 Lymphocytes # 0.2 K/mcL (0.6-4.6) L 03/27/18 05:44 Nucleated RBCs/100 WBC 1.2 /100 WBC (0) H 03/27/18 05:44 Platelet Estimate Marked Decrease (Normal) L 03/26/18 05:30 Immature Plt Fraction 8.7 % (1.1-6.1) H 03/27/18 05:44 Anisocytosis 1+ (Not Present) A 03/23/18 13:25 Microcytosis Present (Not Present) A 03/23/18 13:25 Macrocytosis Present (Not Present) A 03/23/18 13:25 PT 16.8 Seconds (9.4-12.1) H 03/27/18 09:10 APTT 37.2 Seconds (26.0-36.0) H 03/27/18 05:44 Fibrinogen 113 mg/dL (169-393) L 03/26/18 02:10 Heparin Anti-Xa, Unfract 0.22 IU/mL (0.30-0.70) L 03/26/18 13:13 ABG pH 7.46 pH Units (7.32-7.45) H 03/27/18 04:26 ABG pCO2 34 mmHg (35-45) L 03/27/18 04:26 ABG pO2 128 mmHg (85-104) H 03/27/18 04:26 ABG O2 Saturation 99 % (95-98) H 03/27/18 04:26 Potassium 3.3 mEq/L (3.5-5.1) L 03/27/18 05:44 Chloride 108 mEq/L (98-107) H 03/27/18 05:44 Creatinine 0.53 mg/dL (0.60-1.20) L 03/27/18 05:44 Glucose 132 mg/dL (70-105) H 03/27/18 05:44 POC Glucose 132 mg/dL (70-99) H 03/27/18 05:42 Calcium 10.5 mg/dL (8.6-10.3) H 03/27/18 05:44 Venous Ioniz Calcium 1.59 mmol/L (1.15-1.35) H 03/26/18 17:54 Phosphorus 1.1 mg/dL (2.7-4.5) L 03/27/18 05:44 Total Bilirubin 1.4 mg/dL (0.3-1.0) H 03/27/18 05:44 Direct Bilirubin 0.7 mg/dL (0.0-0.2) H 03/27/18 05:44 Lactate Dehydrogenase 129 Units/L (140-271) L 03/23/18 07:51 Troponin I 0.19 ng/mL (< 0.04) H* 03/22/18 08:05 Serum Total Protein 4.6 g/dL (6.4-8.9) L 03/27/18 05:44 Albumin 3.2 g/dL (3.5-5.7) L 03/27/18 05:44 Globulin 1.4 g/dL (2.4-3.5) L 03/27/18 05:44 Albumin/Globulin Ratio 2.3 (1.1-2.2) H 03/27/18 05:44 Amylase 28 Units/L (29-103) L 03/24/18 03:00 Lipase 10 Units/L (11-82) L 03/24/18 03:00 TSH 0.169 mcIU/mL (0.340-5.600) L 03/22/18 08:05 Free T3 2.00 pg/mL (2.50-3.90) L 03/22/18 08:05 Arterial Blood Ionized Calcium 1.48 mmol/L (1.15-1.35) H 03/27/18 05:56 Urine Ketones Trace mg/dL (Negative) H 03/21/18 22:17 Urine Bilirubin Large (Negative) H 03/21/18 22:17 Ur Squamous Epith Cells Many per lpf (None-Few) H 03/21/18 22:17 Urine Total Volume 0.11 Liters (0.60-1.60) L 03/26/18 07:50 Ur Creatinine 24 Hour 88 mg/day (600-1800) L 03/26/18 07:50 Vancomycin Trough 18 mcg/mL (5-10) H 03/26/18 19:49 General appearance: Present: no acute distress - Respiratory Additional comments: Shallow, regular respirations. Breath sound diminished throughout - Cardiovascular Cardiovascular exam: Present: +S1, +S2 - GI/Abdominal GI/Abdominal exam: Present: diminished bowel sounds, soft - Additional comments: Small amount dk stormy urine in segal - Extremities Exam Additional comments: 2+ edema to bilateral upper extremities. Ecchymosis persists to left groin and left lower extremity. Hands and toes cold to touch. - Neurological Exam Additional comments: Eyes open with touch. Does not attempt to verbalize or follow commands. - Skin Skin exam: Present: dry, pallor, warm Palliative Quality Palliative Quality: Screen for Code Status: Yes, Screen for Goals of Care: Yes, Screen for Pain: Yes, If Pain Regimen Started, Initiate Bowel Regimen: NA, Screen for Nausea/Vomitting: Yes Code Status: 03/22/18 04:09 Resuscitation Status: Active [RES] Routine Comment: Resuscitation Status: Full Code 03/26/18 15:49 CODE [Resuscitation Status: Active] [RES] Routine Comment: Resuscitation Status: DNR-Comfort Care-Arrest 03/27/18 11:21 DNR [Resuscitation Status: Active] [RES] Routine Comment: Resuscitation Status: DNR-Comfort Care - Labs CBC & Chem 7: 03/27/18 05:44 03/27/18 05:44 Labs: Laboratory Results - last 24 hr 03/25/18 03/25/18 03/25/18 05:44 12:54 18:12 POC Glucose 119 H 187 H 122 H 03/25/18 03/27/18 23:36 05:42 POC Glucose 157 H 132 H - Impressions Impressions Abdomen Ultrasound 03/25/18 09:22 IMPRESSION: 1. Moderate amount of gallbladder sludge and punctate layering gallstones. No evidence of acute cholecystitis. No biliary dilation. D/ / 03/25/2018 11:48:51 Hao Paula MD / bcarter Interpreting Provider: Hao Paula MD - ABG Interpretation ABG results: ABG ABG pH 7.46 pH Units (7.32-7.45) H 03/27/18 04:26 ABG pCO2 34 mmHg (35-45) L 03/27/18 04:26 ABG pO2 128 mmHg (85-104) H 03/27/18 04:26 ABG O2 Saturation 99 % (95-98) H 03/27/18 04:26 PT/INR, D-dimer PT 16.8 Seconds (9.4-12.1) H 03/27/18 09:10 Consult Discharge Plan - Plan Referrals: NONE,PCP [Primary Care Provider] -
--- NOTE | 2018-03-28 10:24 | Discharge Summary ---
- NOTES TO OUTPATIENT PROVIDER Notes to Outpatient Provider: as per palliative Orders not resulted at time of discharge: Pending orders 03/23/18 06:54 Cryoprecipitate Pooled [BBK] Stat Red Blood Cells [BBK] Stat Type and Screen [BBK] Stat 03/24/18 08:02 Platelets [BBK] Stat 03/24/18 15:40 Culture,Blood [BC] Routine 03/24/18 15:45 Culture,Blood [BC] Routine Culture,Blood [BC] Stat Date of Encounter: 03/28/18 Time of Encounter: 10:22 - Discharge Diagnosis (1) Septic shock Priority: Primary Status: Acute (2) Advanced care planning/counseling discussion Priority: Secondary Status: Acute (3) Anuria Priority: Secondary Status: Acute (4) Dyspnea Priority: Secondary Status: Acute Qualifiers: Dyspnea type: unspecified Qualified Code(s): R06.00 - Dyspnea, unspecified (5) Elevated troponin Priority: Secondary Status: Acute (6) Lactic acidosis Priority: Secondary Status: Acute (7) Metabolic acidosis Priority: Secondary Status: Acute (8) Hemorrhagic shock Priority: Secondary Status: Suspected Hospital course: Ms. Whitten is a 67 year old female with history of baseline dementia, anxiety, panic disorder, hypothyroidism, osteoarthritis, HLD, HTN, OA, schizophrenia. who presents to the ED from [facility] due to unresponsive, low blood pressure on 03/21/18. As per chart review She was hypotensive in ED with BP 99/48. Emergent central line was placed by ED staff and levophed was started. Her BUN/Cr was 40/1.47. Lactic acid was 1.7. Troponin was mildly elevated at 0.05 without EKG changes. Her urine analysis was negative for both nitrites and leukocyte esterase with many squamous epithelial cells. Her CXR was negative for any acute process in ED. She was admitted to the ICU for further care of hypotension of uncertain etiology. She was started on empiric vancomycin and aztreonam due to penicillin allergy. Further workup included leukocytosis with max of 18.3 (as well as 16% bands on 03/23), lactic acidosis with max of 3.2, Troponin peak of 0.19. She was started on heparin drip for troponinemia by the primary team. Cardiology was consulted and it was reported that the elevated troponin is most likely not due to ACS and is most likely type II elevation related to hypotension. Echocardiogram was ordered LVEF 65-70%. Normal LV chamber size, wall thickness and systolic function. Ct scans of head were negative for acute process, sinus CT showed Opacification of many of the right ethmoid air cells is noted which can be clinically correlated for infection or inflammation. CT of the abdomen and pelvis was obtained on 04/01 which showed diffuse wall thickening of the colon indicative of pancolitis with a distended gallbladder and trace ascites. On 03/23 she was found to have a hematoma in the left thigh initially measuring 14.[address] on 03/23. Developed hemorrhagic shock. Follow-up CTA on 03/23 showed 11.1 x 5.9 cm lobulated hematoma. Heparin drip was stopped and she did receive 3 units of packed red blood cells, 2 units of cryoprecipitate. On 03/23, she was intubated for acute respiratory failure and an arterial line on same day. On 03/23, nephrology was consulted for an urea and CRRT was initiated. Palliative was consulted "Patient's primary POA - her sister Cindi, on 03/18. Cindi's Ed, is her alternate POA. Ed, patient's sister, and niece arrived at this hospital this am. Meeting was held with Dr. Ordonez, Dr. Ratliff, School Community Relations Coordinatoreran Patel and myself regarding goals of care. Patient was intubated and not able to participate in conversation. Ed states that him and his often had discussion around what each of them would want done if they were critically ill. Ed stated that when Joan was able to participate in these discussion, she had always stated that she wanted no form of life support. They were updated on her clinical status, and understand that she is on vasopressors, dialysis, and ventilatory support. Ed and family present agree this would not be in alignment with patient wishes, and desire to have her compassionately extubated and kept comfortable. Discussed code status, and she was transitioned to DNRCC. Ed signed state DNR form. She will be liberated from life sustaining devices shortly. May move to palliative care bed if stable after a couple of hours." She was palliatively extubated and transferred to the floor on 03/27. She was transferred to hospice on 03/28. Palliative medications to be ordered by the palliative team. Discharge discussed with: patient, senior wind energy consultant - Time Spent with Patient Total time spent providing and/or coordinating discharge services: Greater than 30 minutes (45) - Discharge Medications Allergies/Adverse Reactions: Allergy/AdvReac Type Severity Reaction Status Date / Time Penicillins Allergy See Verified 03/22/18 07:40 Comments Date of admission: 03/22/18 17:18 Primary care physician: PCP NONE Consults: 03/22/18 04:07 Consult to Critical Care [CONS] Routine Consulting Provider: Pulm Crit Care & Sleep [place] Reason for Consult: hypotension, possible adrenal insufficiency, on levophed Call Completed: Yes 03/22/18 06:20 Consult to Cardiology [CONS] Routine Comment: Consulting Provider: Cardiology [place] Reason for Consult: refractory hypotension, elevated troponin, NSTEMI Call Completed: Yes 03/23/18 09:09 Consult to Nephrology [CONS] Routine Consulting Provider: Kidney [place]/KEERTHI/DAPHNIE/ANAYELI Reason for Consult: anuric with no evidence of obstruction Call Completed: No 03/23/18 12:36 Consult to Interventional Radiology [CONS] Routine Consulting Provider: Radiology Interventional [place] Reason for Consult: Please place temp HD line. Time Notified: 12:36 Call Completed: No 03/24/18 08:10 Consult to Infectious Diseases [CONS] Stat Consulting Provider: Infectious Disease [place] Reason for Consult: Possible septic shock without known source of infection Call Completed: Yes 03/25/18 09:09 Consult to Surgery [CONS] Routine Consulting Provider: Surgery [facility] Reason for Consult: cholelithiasis Time Notified: 09:10 Call Completed: Yes 03/25/18 09:51 Consult to Nutrition [CONS] Routine Comment: Consulting Provider: NUTRITION Reason for Dietary Consult: Tube Feed Start & Manage Other:: verbal order from Dr. Rodriguez for trophic feeds, 10ml/hr 03/26/18 15:58 Consult to Palliative Care [CONS] Routine Comment: Consulting Provider: Palliative Care [place] Reason for Consult: Family meeting to discuss goals of care tomorrow at 10:30 Call Completed: No - Constitutional Vitals: Temp Pulse Resp BP Pulse Ox 96.2 F L 97 13 96/56 100 03/27/18 20:27 03/27/18 20:27 03/27/18 20:27 03/27/18 20:27 03/27/18 20:27 Exam: General: Laying supine, opens eyes Head: atraumatic, normocephalic, ENT: Dry mucous membranes, nasal cannula, Neck: normal inspection, trachea midline, no carotid bruits Chest: normal inspection, symmetric chest rise Respiratory: Rhonchi throughout the chest Cardiovascular: Tachycardic S1-S2, no murmurs Abdomen: Diminished bowel sounds, soft, could not appreciate organomegaly musculoskeletal: 3+ edema to upper extremities, 1+ to lower extremities, not moving any of her extremities Skin: warm, dry, intact. Neuro: Opens eyes with tactile stimulation, but does not follow any commands. Nonverbal, alert and oriented 0 - Patient Status Disposition: Hospice - Medical Facility Condition: Undetermined Functional capacity at discharge: bed bound Overall status at discharge: other - Discharge Instructions Follow Up With: NONE,PCP [Primary Care Provider] - - Diet and Activity Activity: other Diet: other
--- NOTE | 2018-03-28 10:43 | Physician Discharge Referral ---
Home Health/Hosp Referral Info Transfer to: Hospice Provider in Charge Post Discharge: PCP - Diagnosis (1) Septic shock Priority: Primary Status: Acute (2) Advanced care planning/counseling discussion Priority: Secondary Status: Acute (3) Anuria Priority: Secondary Status: Acute (4) Dyspnea Priority: Secondary Status: Acute (5) Elevated troponin Priority: Secondary Status: Acute (6) Lactic acidosis Priority: Secondary Status: Acute (7) Metabolic acidosis Priority: Secondary Status: Acute (8) Hemorrhagic shock Priority: Secondary Status: Suspected - Respiratory Orders Oxygen / L per min Smoking Cessation: Smoking cessation has been advised. For more information, call the [employer] Quit Line at [phone]. - Transfer Medications Allergies/Adverse Reactions: Allergy/AdvReac Type Severity Reaction Status Date / Time Penicillins Allergy See Verified 03/22/18 07:40 Comments Certification: Further, I certify that my clinical findings support that this patient is homebound (i.e. absences from home require considerable and taxing effort and are for medical reasons or yazidism services or infrequently or short duration when for other reasons) because: Homebound Reason: Patient requires assistance of a person or device to safely leave home Attestation: My signature below is to certify that this patient is under my care and that I, or nurse practitioner, or a physician's optometry assistant working with me, has a [id number] encounter with this patient.
[2018-03-28 11:07] VITALS: BP 94/58
[2018-03-28] MEDS: Nystatin OINT 15 GM TUBE TP SCH ×2 (11:40→13:30)
== END 2018-03-28 13:44 | disposition hospice, inpatient (51) | DRG 720 ==
LOC: EMEROOARM 22:00 → ICNU 03-22 02:54 → INTOOBSV 03-22 02:54 → ICNU 03-22 03:28 → 2ANU 03-27 15:48
PROVIDERS: ADMIT Internal Medicine; ATTEND Internal Medicine

== ENCOUNTER 2018-03-28 10:48 | Inpatient (IN) ==
[2018-03-28] MEDS ORDERED: Bisacodyl 10 MG RECTAL SUPPOSITORY RC PRN (11:13)
[2018-03-28] MEDS ORDERED: MORPHINE SUL Oral CONC 10 MG/0.5 ML ORAL.SYG PO PRN (11:13)
[2018-03-28] MEDS ORDERED: *HR* LORazepam Oral Conc 2 MG/ML PO PRN (11:13)
[2018-03-28] MEDS ORDERED: Scopolamine Patch 1.5 MG PATCH.TD72 TD PRN (11:13)
[2018-03-28] MEDS ORDERED: *HR* FentaNYL PATCH 12 MCG PATCH TD SCH (11:15)
--- NOTE | 2018-03-28 12:43 | Pallative History & Physical ---
Date of Encounter: 03/28/18 Time of Encounter: 12:00 Assessment and Plan (1) Dyspnea Status: Acute Will transition IV Fentanyl to SL Roxanol and monitor. Titrate as necessary. Qualifiers: Dyspnea type: unspecified Qualified Code(s): R06.00 - Dyspnea, unspecified (2) Restlessness and agitation Status: Acute Transition IV Lorazepam to oral concentrate. Titrate as needed. (3) Generalized pain Status: Acute Will transition IV Fentanyl to Fentanyl patch at 12mcg and monitor (4) Goals of care, counseling/discussion Status: Acute Spoke with brother harpal perdueWINSOME. He does desire GIP stay for few days. He understands that if she stabilizes and symtpoms under control, she will require transfer back to [facility]. (5) Septic shock Status: Acute (6) Respiratory failure Status: Acute Compassionately extubated yesterday. Appears comfortable on oxygen per nasal cannula. Qualifiers: Respiratory failure complication: unspecified whether with hypoxia or hypercapnia Qualified Code(s): J96.90 - Respiratory failure, unspecified, unspecified whether with hypoxia or hypercapnia Internal Medicine - H&P: HPI Admitted From: Intrahospital Transfer Plans for Post Hospital Care: Transfer Residential Care History of present illness: Ms. Whitten is a 67 year old female who is resident at [facility], who was admitted with altered mental status and hypotension. She was seen in ER and transferred to ICU several days ago. She deteriorated and did require intubation. She was treated for septic shock. Renal function declined and she was also started on renal replacement therapy. Her mental status did not improve despite receiving no sedation. She was still requiring vasopressor therapy for hypotension. Cardiology/Nephrology consults were obtained during her hospital stay as well. EF 65-70%. She developed acute anemia and was found to have large hematoma left thigh. IR was consulted, but by that time, they were not able to find a site of active bleed. She made no improvement in her condition , and was not stable enough to do vent weaning trials and palliative was consulted to assist with goals of care discussion. The patient's sister Cindi, was her primary power of civil litigation attorney, however, she on 03/18. Cindi's was alternate on POA, and presented this document. After determining that patient's last known wish when she was able to express it, was to have no form of life sustaining therapy, and did not want life support. She was transitioned to DNR-Comfort care and transferred out of ICU late last night to palliative bed. I spoke with Ed this am, and will transition to inpatient hospice stay here temporarily If she is stable, and symptoms are under control, she could transition back to [facility] with continued hospice support. U Past Med Surg Social Fam HX - Past Medical History Medical history: dementia, GERD, thyroid disease Psychiatric history: anxiety, panic disorder, schizophrenia, other - Past Surgical History Surgical History: non-contributory - Social History Smoking Status: Unknown if ever smoked Alcohol use: unknown Drug use: unknown Internal Medicine - H&P: Meds Allergy/AdvReac Type Severity Reaction Status Date / Time Penicillins Allergy See Verified 03/22/18 07:40 Comments ROS unobtainable: due to mental status Palliative Care-Exam - Constitutional General appearance: Present: no acute distress - Head Head Exam: Present: normal inspection, normocephalic - Eye Eye exam: Present: normal appearance, PERRL - Respiratory Additional comments: Respirations shallow with diminished breath sounds. - Cardiovascular Cardiovascular exam: Present: tachycardia - GI/Abdominal Exam GI/Abdominal exam: Present: distended, soft additional comments: excoriation noted under abd skin folds - Catheter Type: Urethral (Luna) Additional comments: Luna with small amount dark urine - Extremities Exam Additional comments: Hands and feet are cold to touch, some mottling to hands noted. Ecchymosis remains to left lower leg, thigh, and groin. - Neurological Exam Additional comments: Opens eyes only. Does not verbalize or follow any commands. - Skin Skin exam: Present: dry, pallor, warm Palliative Quality Palliative Quality: Screen for Code Status: Yes, Screen for Goals of Care: Yes, Screen for Pain: Yes, If Pain Regimen Started, Initiate Bowel Regimen: Yes, Screen for Nausea/Vomitting: Yes Code Status: 03/28/18 11:13 Resuscitation Status: Active [RES] Routine Comment: Resuscitation Status: DNR-Comfort Care
--- NOTE | 2018-03-29 09:07 | Palliative Progress Note ---
Date of Encounter: 03/29/18 Time of Encounter: 09:05 - Assessment and plan (1) Dyspnea Current Visit: No Status: Acute Assessment and plan: Continue Roxanol PRN - has not required last 24 hours Qualifiers: Dyspnea type: unspecified Qualified Code(s): R06.00 - Dyspnea, unspecified (2) Restlessness and agitation Current Visit: No Status: Acute Assessment and plan: Continue Lorazepam PRN. Has not required last 24 hours. (3) Generalized pain Current Visit: No Status: Acute Assessment and plan: Continue Fentanyl patch 12mcg/hr. Roxanol for breakthrough (4) Congestion of upper airway Current Visit: Yes Status: Acute Assessment and plan: Increased secretions noted this am. Begin Scopolamine patch. Has Atropine drops PRN. (5) Goals of care, counseling/discussion Current Visit: No Status: Acute Assessment and plan: Appears to be more hypotensive and less responsive this am. Will continue GIP care and titrate medications as needed. (6) Septic shock Current Visit: No Status: Acute (7) Respiratory failure Current Visit: No Status: Acute Qualifiers: Respiratory failure complication: unspecified whether with hypoxia or hypercapnia Qualified Code(s): J96.90 - Respiratory failure, unspecified, unspecified whether with hypoxia or hypercapnia - Time Spent With Patient Total time spent is greater than 50% in coordination of care (as documented) at patient's floor/unit and/or counseling patient: - Subjective Interval history: Patient less responsive today and did not open her eyes for me. Appears comfortable and in no distress. B/P decreased this am - 82/51. Other vitals signs stable. Urine output approx 100ml last 36 hours. No visitors present - Constitutional General appearance: Present: no acute distress - Respiratory Respiratory exam: Present: decreased breath sounds Additional comments: Respirations reg and shallow - Cardiovascular Cardiovascular exam: Present: +S1, +S2 - GI/Abdominal GI/Abdominal exam: Present: normal bowel sounds, soft Additional comments: Excoriation under abd folds - Additional comments: Luna with dk stormy urine - Extremities Exam Additional comments: Upper extremities with decreasing edema - 1+ bilaterally today. Ecchymosis persists to left thigh/groin area and LLE. - Neurological Exam Additional comments: Not opening eyes to me today to verbal or tactile stimulation. Does not attempt to follow commands or verbalize - Skin Skin exam: Present: pallor (Clammy), warm Palliative Quality Palliative Quality: Screen for Code Status: Yes, Screen for Goals of Care: Yes, Screen for Pain: Yes, If Pain Regimen Started, Initiate Bowel Regimen: Yes, Screen for Nausea/Vomitting: Yes Code Status: 03/28/18 11:13 Resuscitation Status: Active [RES] Routine Comment: Resuscitation Status: DNR-Comfort Care Palliative Scale - Palliative Performance Scale How ambulatory is this patient?: Totally bed bound What is patient's level of activity and evidence of disease?: Unable to do any activity, Extensive disease How much self-care assistance does patient require?: Full How much oral intake does the patient have?: Mouth care only What is this patient's level of consciousness?: Drowsy or coma with or without confusion Palliative Performance Score: 10 % Consult Discharge Plan - Plan Referrals: NONE,PCP [Primary Care Provider] -
[2018-03-29] MEDS ORDERED: Scopolamine Patch 1.5 MG PATCH.TD72 TD SCH (09:15)
[2018-03-29] MEDS: Atropine Sulfate 1% 40 DROP/2 ML BOTTLE SL PRN ×2 (13:24→21:08)
[2018-03-30 06:55] VITALS: BP 98/54
--- NOTE | 2018-03-30 08:54 | Palliative Progress Note ---
Date of Encounter: 03/30/18 Time of Encounter: 08:45 - Assessment and plan (1) Dyspnea Current Visit: No Status: Acute Assessment and plan: Continue Roxanol PRN. Has not utilized x24 hours Qualifiers: Dyspnea type: unspecified Qualified Code(s): R06.00 - Dyspnea, unspecified (2) Restlessness and agitation Current Visit: No Status: Acute Assessment and plan: Continue Lorazepam PRN. Has not utilized. (3) Generalized pain Current Visit: No Status: Acute Assessment and plan: Continue Fentanyl patch, currently at 12 mcg. Roxanol for breakthrough, has not utilized. (4) Congestion of upper airway Current Visit: Yes Status: Acute Assessment and plan: Continue scopolamine patch and atropine for secretions. (5) Goals of care, counseling/discussion Current Visit: No Status: Acute Assessment and plan: Patient remains fairly stable, no further decline. Has not required any adjustments in medications, and has not required breakthrough medications. D/W [facility] hospice team, she could be transferred back to [facility] at this point. They will be working with [facility] for that transition. (6) Septic shock Current Visit: No Status: Acute (7) Respiratory failure Current Visit: No Status: Acute Qualifiers: Respiratory failure complication: unspecified whether with hypoxia or hypercapnia Qualified Code(s): J96.90 - Respiratory failure, unspecified, unspecified whether with hypoxia or hypercapnia - Time Spent With Patient Total time spent is greater than 50% in coordination of care (as documented) at patient's floor/unit and/or counseling patient: - Subjective Interval history: Patient more alert today. Opening eyes to look at me. Making some noise when I speak to her, but does not look uncomfortable or in any distress. Blood pressure remains fairly stable, afebrile, resp easy and reg and heart rate regular, no tachycardia. Skin warm and moist. No visitors present. - Constitutional General appearance: Present: no acute distress - Respiratory Additional comments: Rhonchi anteriorally. + upper airway secretions. Resp reg, shallow and unlabored. - Cardiovascular Cardiovascular exam: Present: +S1, +S2 - GI/Abdominal GI/Abdominal exam: Present: diminished bowel sounds, soft - Additional comments: Luna with small amount dk stormy urine - Extremities Exam Additional comments: Excoriation under abd folds. Ecchymosis remains to left groin/thigh and lower leg. - Neurological Exam Additional comments: Opens eyes, does not attempt to verbalize or follow commands - Skin Skin exam: Present: dry, pallor, warm Palliative Quality Palliative Quality: Screen for Code Status: Yes, Screen for Goals of Care: Yes, Screen for Pain: Yes, If Pain Regimen Started, Initiate Bowel Regimen: Yes, Screen for Nausea/Vomitting: Yes Code Status: 03/28/18 11:13 Resuscitation Status: Active [RES] Routine Comment: Resuscitation Status: DNR-Comfort Care Palliative Scale - Palliative Performance Scale How ambulatory is this patient?: Totally bed bound What is patient's level of activity and evidence of disease?: Unable to do any activity, Extensive disease How much self-care assistance does patient require?: Full How much oral intake does the patient have?: Mouth care only What is this patient's level of consciousness?: Drowsy or coma with or without confusion Palliative Performance Score: 10 % Consult Discharge Plan - Plan Referrals: NONE,PCP [Primary Care Provider] -
--- NOTE | 2018-03-30 09:31 | Discharge Summary ---
Date of Encounter: 03/30/18 Time of Encounter: 09:30 - Discharge Diagnosis (1) Respiratory failure Priority: Secondary Status: Acute Qualifiers: Chronicity: unspecified Respiratory failure complication: unspecified whether with hypoxia or hypercapnia Qualified Code(s): J96.90 - Respiratory failure, unspecified, unspecified whether with hypoxia or hypercapnia (2) Septic shock Priority: Primary Status: Acute - Hospital Course Hospital course: Ms. Whitten is a 67 year old female that was admitted to general inpatient hospice after presenting [facility] for septic shock and respiratory failure. Aggressive care was withdrawn and she was compassionately extubated on 03/27/18. She was transitioned on 03/28 to general inpatient hospice for symptom management. Fentanyl patch was started and IV medications transitioned to po, which she tolerated well. She is requiring little for breakthrough and vital signs are stable. She will transition back to ECF as soon as arrangements can be made. - Time Spent with Patient Total time spent providing and/or coordinating discharge services: Less than 30 minutes - Discharge Medications Prescriptions: Hyoscyamine SL [Levsin Sl] 0.125 mg SL Q4HR PRN 7 Days #30 tab.subl PRN Reason: upper airway secretions FentaNYL PATCH [Duragesic] 12 mcg TD Q72H 7 Days #3 patch.td72 LORazepam Oral Conc [Ativan Oral Conc] 1 mg PO Q4H PRN 7 Days #30 mls PRN Reason: Anxiety MORPHINE SUL Oral CONC [Roxanol Oral Conc] 5 mg SL Q1H PRN 7 Days #30 oral.syg PRN Reason: Dyspnea/pain Scopolamine Patch [Transderm-Scop] 1.5 mg TD Q72H 7 Days #3 patch.td72 Home Medications: FentaNYL PATCH [Duragesic] 12 mcg TD Q72H 7 Days #3 patch.td72 03/30/18 [Rx] Hyoscyamine SL [Levsin Sl] 0.125 mg SL Q4HR PRN 7 Days #30 tab.subl 03/30/18 [Rx] LORazepam Oral Conc [Ativan Oral Conc] 1 mg PO Q4H PRN 7 Days #30 mls 03/30/18 [Rx] MORPHINE SUL Oral CONC [Roxanol Oral Conc] 5 mg SL Q1H PRN 7 Days #30 oral.syg 03/30/18 [Rx] Scopolamine Patch [Transderm-Scop] 1.5 mg TD Q72H 7 Days #3 patch.td72 03/30/18 [Rx] Allergies/Adverse Reactions: Allergy/AdvReac Type Severity Reaction Status Date / Time Penicillins Allergy See Verified 03/22/18 07:40 Comments Internal Medicine - DS: Prov Date of admission: 03/28/18 13:45 Primary care physician: PCP NONE Consults: 03/28/18 11:13 Consult to Palliative Care [CONS] Routine Comment: Consulting Provider: Palliative Care [place] Reason for Consult: GIP symptom management Call Completed: No Discharging clinician: Akanksha Correa Anticipated date of discharge: 03/30/18 Internal Medicine - DS: Exam - Constitutional Vitals: Vital Signs Temp Pulse Resp BP Pulse Ox 03/30/18 06:54 97.7 F 80 14 98/54 98 03/29/18 19:57 96.6 F L 91 17 88/51 96 Intake and Output 03/29/18 03/30/18 03/30/18 23:59 07:59 15:59 Intake Total 0 / 0 Output Total 200 / 200 Balance 0 / 0 -200 / -200 Intake: Oral 0 / 0 Output: Catheter 200 / 200 Other: Meal NPO Percent of Meal Consumed 0% - Respiratory Additional comments: Rhonchi throughout anterior chest - Cardiovascular Cardiovascular exam: Present: +S1, +S2 - GI/Abdominal GI/Abdominal exam: Present: diminished bowel sounds, soft - Extremities Exam Additional comments: Ecchymosis to left thigh/groin and LLE - Neurological Exam Neurological exam: Present: alert Additional comments: Eyes open when name called, does not verbalize or follow commands - Skin Skin exam: Present: dry, pallor - Patient Status Disposition: Hospice - Medical Facility Condition: Serious Functional capacity at discharge: bed bound Overall status at discharge: patient is not back to baseline - Discharge Instructions Follow Up With: NONE,PCP [Primary Care Provider] -
[2018-03-30] MEDS: Atropine Sulfate 1% 40 DROP/2 ML BOTTLE SL PRN (09:36)
--- NOTE | 2018-03-30 10:33 | Physician Discharge Referral ---
ExtendedCare Referral Info Transfer To: [facility] Provider in Charge after Transfer: PCP, Still Operator Institutional Level of Care: Intermediate - Diagnosis (1) Respiratory failure Status: Acute (2) Septic shock Status: Acute Prognosis: Poor Aware of Diagnosis: Family Aware of Prognosis: Family - Transfer Medications Prescriptions: Hyoscyamine SL [Levsin Sl] 0.125 mg SL Q4HR PRN 7 Days #30 tab.subl PRN Reason: upper airway secretions FentaNYL PATCH [Duragesic] 12 mcg TD Q72H 7 Days #3 patch.td72 LORazepam Oral Conc [Ativan Oral Conc] 1 mg PO Q4H PRN 7 Days #30 mls PRN Reason: Anxiety MORPHINE SUL Oral CONC [Roxanol Oral Conc] 5 mg SL Q1H PRN 7 Days #30 oral.syg PRN Reason: Dyspnea/pain Scopolamine Patch [Transderm-Scop] 1.5 mg TD Q72H 7 Days #3 patch.td72 Home Medications: FentaNYL PATCH [Duragesic] 12 mcg TD Q72H 7 Days #3 patch.td72 03/30/18 [Rx] Hyoscyamine SL [Levsin Sl] 0.125 mg SL Q4HR PRN 7 Days #30 tab.subl 03/30/18 [Rx] LORazepam Oral Conc [Ativan Oral Conc] 1 mg PO Q4H PRN 7 Days #30 mls 03/30/18 [Rx] MORPHINE SUL Oral CONC [Roxanol Oral Conc] 5 mg SL Q1H PRN 7 Days #30 oral.syg 03/30/18 [Rx] Scopolamine Patch [Transderm-Scop] 1.5 mg TD Q72H 7 Days #3 patch.td72 03/30/18 [Rx] Allergies/Adverse Reactions: Allergy/AdvReac Type Severity Reaction Status Date / Time Penicillins Allergy See Verified 03/22/18 07:40 Comments - Respiratory Orders Oxygen / L per min (2-4 LPM) Smoking Cessation: Smoking cessation has been advised. For more information, call the [employer] Tobacco Quit Line at 2-006-OSYY-NOW. - Ancillary Orders May use pressure relief devices daily prn - Advance Directives Power of Chair Inspector for Health Care: Yes Code Status: DNR-Comfort Care - Mobility Orders Bedrest - Rehabiliation Orders Rehab Potential: Poor - Treatments Skin tear care topically daily PRN per policy, May check for fecal impaction rectally daily PRN, Fleet enema rectally every other day PRN cleansing purposes List/Other: CLeanse sacral breakdown daily and apply Allevyn CERTIFICATION: I certify that the transfer of the above named patient to an Extended Care Facility is necessary for the continuing treatment of the diagnosis listed. The above information is true and accurate reflection of patient's current condition. Confidential - Redisclosure prohibited without a patient's written consent.
== END 2018-03-30 12:45 | disposition hospice, inpatient (51) | DRG 951 ==
LOC: 2ANU 13:45
PROVIDERS: ADMIT Internal Medicine Hospice and Palliative Medicine; ATTEND Internal Medicine Hospice and Palliative Medicine